=== PATIENT | female | born 1965 | race Caucasian/White ===

== ENCOUNTER 2020-06-16 11:26 | Outpatient (REF) | payer MEDICAID, SELFPAY ==
--- NOTE | 2020-06-16 | XR_ITS ---
EXAMINATION: XR SHOULDER, LEFT CLINICAL INFORMATION: Left shoulder pain COMPARISON: 06/13/2019 TECHNIQUE: AP external rotation, Grashey, scapular Y, and axillary views of the left shoulder. FINDINGS: There is no fracture or dislocation. The glenohumeral joint is appropriately aligned. The joint space is maintained. Mild spurring of the greater tuberosity of the humeral head. The acromioclavicular joint is intact with mild hypertrophic degenerative change. The visualized lung is clear. The visualized ribs are intact. IMPRESSION: Mild degenerative changes of the left shoulder.
== END 2020-06-16 11:27 | disposition home or self-care (01) ==
LOC: HO.XRAY 11:26
PROVIDERS: PCP Internal Medicine Geriatric Medicine; Visit Provider Internal Medicine Geriatric Medicine
DX: M25.512 Pain in left shoulder (principal)
CPT/HCPCS: 73030

== ENCOUNTER 2020-06-19 08:40 | Outpatient (REF) | payer MEDICAID, SELFPAY ==
[2020-06-19 09:28] LABS: MANUAL DIFF FLAG NO
[2020-06-19 09:42] LABS: Basophils Percent Auto 0.6 % (0-2); Eosinophils Absolute Auto 0.1 X10*3/uL (0.0-0.4); Eosinophils Percent Auto 2.4 % (0-4); Hematocrit 40.8 % (37-47); Hemoglobin 13.6 g/dl (12.0-16.0); Imm Gran Abs Auto 0.02 X10*3/uL (0.00-0.03); Imm Gran Pct Auto 0.4 % (0.0-0.4); Lymphocytes Percent Auto 41.1 % (20-40); Mean Corpuscular HGB Conc 33.3 g/dl (31.0-35.0); Mean Corpuscular Hemoglobin 28.8 pg (27.0-33.0); Mean Corpuscular Volume 86.4 fL (80-98); Mean Platelet Volume 9.6 fL (9.4-12.3); Monocytes Absolute Auto 0.3 X10*3/uL (0.1-1.2); Neutrophils Absolute Auto 2.5 X10*3/uL (2.0-8.3); Neutrophils Percent Auto 50.5 % (45-73); Platelet Count 254 X10*3/uL (160-400); Red Blood Count 4.72 X10*6/uL (4.20-5.50); Red Cell Distribution Width 12.9 % (11.0-16.0)
[2020-06-19 10:04] LABS: Estimated Average Glucose 103 mg/dL; Hemoglobin A1c % 5.2 %
[2020-06-19 10:16] LABS: Alanine Aminotransferase 17 U/L (0-31); Alkaline Phosphatase 106 U/L (39-117); Anion Gap 12 (12-20); Aspartate Amino Transferase 16 U/L (5-31); Bilirubin Total 0.7 mg/dL (0.0-1.0); Blood Urea Nitrogen 18 mg/dL (9-16); C Reactive Protein 0.96 mg/dL (< or = 0.50); Calcium 9.3 mg/dL (8.4-10.2); Carbon Dioxide 29 mmol/L (22-29); Chloride 105 mmol/L (96-108); Cholesterol 186 mg/dL; Estimated Glomerular Filt Rate > 60; Glucose Random 90 mg/dL (60-115); HDL Cholesterol 49 mg/dL; Iron 115 mcg/dL (30-160); LDL Cholesterol Calculated 122 mg/dl; Percent Iron Saturation 37 % (15-50); Potassium 4.8 mmol/l (3.3-5.1); Sodium 141 mmol/L (135-145); Total Iron Binding Capacity 307 mcg/dL (228-428); Total Protein 6.7 g/dL (6.5-8.0); Triglycerides 78 mg/dL; Unsaturated Iron Binding 192 ug/dL
[2020-06-19 10:38] LABS: Ferritin 128 ng/mL (10-250); TSH reflex Free T4 2.31 mIU/mL (0.32-4.0)
[2020-06-21 05:47] LABS: Folate 4.8 ng/mL (> or = 4.0); Vitamin B12 443 pg/mL (200-900)
[2020-06-21 12:42] LABS: Insulin Level Total 6.2 uIU/mL
[2020-06-22 05:57] LABS: Zinc 77 mcg/dL (60-130)
[2020-06-22 16:01] LABS: Calcium (PTHI) 9.6 mg/dL (8.6-10.4); PTHI 82 pg/mL (14-64)
[2020-06-23 18:07] LABS: Vitamin A 53 mcg/dL (38-98)
[2020-06-24 11:27] LABS: Vitamin B1 10 nmol/L (8-30)
== END 2020-06-19 08:41 | disposition home or self-care (01) ==
LOC: HO.LAB 08:40
PROVIDERS: PCP Internal Medicine Geriatric Medicine; Visit Provider Physician Assistant
DX: Z98.84 Bariatric surgery status (principal); Z13.220 Encounter for screening for lipoid disorders
CPT/HCPCS: 36415; 80053; 80061; 82306; 82607; 82728; 82746; 83036; 83525; 83540; 83970; 84425; 84443; 84590; 84630; 85025; 86140

== ENCOUNTER → 2020-06-21 11:11 | Outpatient (BNVA) | payer MEDICAID, SELFPAY | PROVIDERS: PCP Internal Medicine Geriatric Medicine; Visit Provider Physician Assistant | DX: E66.9 Obesity, unspecified (principal); Z68.35 Body mass index [BMI] 35.0-35.9, adult; Z98.84 Bariatric surgery status | CPT/HCPCS: 99214 ==

== ENCOUNTER → 2020-07-13 08:03 | Outpatient (BNVA) | payer MEDICAID, SELFPAY | PROVIDERS: PCP Internal Medicine Geriatric Medicine; Visit Provider Dietitian, Registered | DX: Z76.89 Persons encountering health services in other specified circumstances (principal) ==

== ENCOUNTER 2020-08-20 08:00 | Outpatient (RCR) | payer MEDICAID, SELFPAY | END 2020-09-01 08:31 | disposition other institution (70) | LOC: HO.PT 08:00 | PROVIDERS: PCP Internal Medicine Geriatric Medicine; Visit Provider Internal Medicine Geriatric Medicine | DX: M25.512 Pain in left shoulder (principal) | CPT/HCPCS: 97033; 97110; 97140; 97161 ==

== ENCOUNTER 2020-09-07 11:31 | Outpatient (REF) | payer MEDICAID, SELFPAY ==
--- NOTE | 2020-09-07 11:36 | MM_ITS ---
EXAMINATION: MM SCREENING DIGITAL BREAST TOMOSYNTHESIS, BILATERAL CLINICAL INFORMATION: Screening. Asymptomatic. Chronic history sebaceous cyst upper left breast. The lifetime risk of breast cancer based on the Tyrer-Cuzick Model is 12%. COMPARISON: Mammography: 04/25/2019, 04/14/2019, 04/10/2018, 03/28/2017, diagnostic left breast ultrasound t. 04/25/2019. TECHNIQUE: Digital breast tomosynthesis is performed in both the craniocaudal and mediolateral oblique views along with computer-aided detection (CAD). Synthesized 2D images are generated from the tomosynthesis. FINDINGS: There are scattered areas of fibroglandular density (ACR BI-RADS breast composition Category b). Right breast parenchymal pattern is stable. There is stable scattered nodularity right breast central outer and inner breast similar to prior exams. There is no developing density or interval architectural abnormality. The left breast has a known sebaceous cyst posterior 11:00 position which is increased in size, currently measuring 1.6 x 1.4 x 1.4 cm. Prior exam dimensions are 1.0 x 0.8 x 0.5 cm on 04/25/2019. There are bilateral benign coarse round and dermal calcifications again seen posterior medial breasts. MM/MM tomosynthesis screening BI IMPRESSION: 1. Left: Known sebaceous cyst posterior 11:00 position increased in size. 2. Right: No significant changes from prior studies. ASSESSMENT: BI-RADS 2: Benign RECOMMENDATION: 1. Consider surgical consult for management of chronic increasing sebaceous cyst left breast. 2. Otherwise, routine annual mammography screening. This patient's information was entered into a reminder system with a target due date for their next mammogram.
== END 2020-09-07 11:32 | disposition home or self-care (01) ==
LOC: HO.MAMMO 11:31
PROVIDERS: Visit Provider Internal Medicine Geriatric Medicine
DX: Z12.31 Encounter for screening mammogram for malignant neoplasm of breast (principal)
CPT/HCPCS: 77063; 77067

== ENCOUNTER → 2020-09-21 | Outpatient (BNVA) | payer MEDICAID, SELFPAY | PROVIDERS: PCP Internal Medicine Geriatric Medicine; Visit Provider Surgery | DX: N60.09 Solitary cyst of unspecified breast (principal) | CPT/HCPCS: 99202 ==

== ENCOUNTER → 2020-09-27 08:09 | Outpatient (BNVA) | payer MEDICAID, SELFPAY | PROVIDERS: Visit Provider Physician Assistant ==

== ENCOUNTER 2020-09-30 07:41 | Outpatient (REF) | payer MEDICAID, SELFPAY ==
[2020-09-30 07:28] VITALS: BP 148/86; PULSE 77; RESP 19; O2SAT 100; BMI 80.6
--- NOTE | 2020-09-30 08:17 | MHC.SHP ---
Pre-Procedural Eval Section A The patient is an INPATIENT: No Changes since office visit: Yes Patient answered all questions; No Cold of Flu in the past 2 weeks, No New Medical Problems and No Changes in Medication The History & Physical has been completed within 30 days and I have reviewed it.: Yes Section B Chief Complaint: Benign breast cyst in female Allergies: Allergies Allergy/AdvReac Type Severity Reaction Status Date / Time No Known Allergies Allergy Unverified 06/21/20 13:55 [No Known Allergies*] Plan Diagnosis/Plan: Unchanged I have reviewed the history and physical and performed a pertinent physical examination on my patient. No changes have occurred unless specified.
--- NOTE | 2020-09-30 08:17 | PM.OP ---
Brief Operative Note Date of Service: 09/30/20 Pre-op diagnosis: Left breast skin cyst Post-op diagnosis: same Procedure: Excision of left breast skin cyst Implants: none Surgeon: Noé Hood MD Anesthesia: local Estimated blood loss (mL): 5 Pathology: other (Left breast skin cyst) Condition: stable Disposition: other (Home)
--- NOTE | 2020-09-30 08:20 | W.PM.OPN ---
Operative Note Operative Note Date of Service: 09/30/20 Narrative: Preoperative diagnosis: Left breast cyst Postoperative diagnosis: Same Procedure excision of left breast cyst Surgeon: Noé Hood MD Anesthesia: Local Indications for procedure: 54-year-old female with a previous history of infected cyst in the 9 o'clock position of the left breast. She presents now for excision of this epidermal inclusion cyst. Operative findings: 1.5 cm epidermal inclusion cyst 9 o'clock position of left breast Specimen: Left breast cyst Estimated blood loss: 5 mL Complications: None Procedure details: Patient was brought to the minor surgery suite placed in a supine position. The site of surgery was confirmed by the patient in the left breast at the 9 o'clock position. Informed consent was confirmed. Skin was then prepped with Betadine and draped in a sterile fashion. Local anesthesia consisting of 1% lidocaine with epinephrine was infiltrated in elliptical fashion around the lesion. An elliptical incision was then created with a scalpel carried down through subcutaneous tissue around the cyst wall. The cyst was excised and sent to pathology for further examination. Skin was then closed using interrupted 4 0 nylon sutures. Sterile dressings consisting of 2 x 2 gauze and Tegaderm were then applied. The patient tolerated the procedure well was discharged to home in stable condition.
== END 2020-09-30 07:42 | disposition home or self-care (01) ==
LOC: HO.MS 07:41
PROVIDERS: PCP Internal Medicine Geriatric Medicine; Visit Provider Surgery
PROC: (CPT 11402; principal; 2020-09-30 08:00)
DX: N60.82 Other benign mammary dysplasias of left breast (principal)
CPT/HCPCS: 11402; 88304

== ENCOUNTER → 2020-10-05 07:41 | Outpatient (BNVA) | payer MEDICAID, SELFPAY | PROVIDERS: Visit Provider Physician Assistant ==

== ENCOUNTER → 2020-10-08 09:36 | Outpatient (BNVA) | payer MEDICAID, SELFPAY | PROVIDERS: PCP Internal Medicine Geriatric Medicine; Visit Provider Surgery | DX: Z01.419 Encounter for gynecological examination (general) (routine) without abnormal findings (principal); E66.9 Obesity, unspecified; R23.2 Flushing; N60.09 Solitary cyst of unspecified breast | CPT/HCPCS: 99212 ==

== ENCOUNTER 2020-10-29 09:51 | Outpatient (REF) | payer MEDICAID, SELFPAY | END 2020-10-29 09:52 | disposition home or self-care (01) | LOC: HO.LNP 09:51 | PROVIDERS: PCP Internal Medicine Geriatric Medicine; Visit Provider Surgery | DX: L98.9 Disorder of the skin and subcutaneous tissue, unspecified (principal) | CPT/HCPCS: 11200 ==

== ENCOUNTER 2020-10-29 13:07 | Outpatient (REF) | payer MEDICAID, SELFPAY | END 2020-10-29 13:08 | disposition home or self-care (01) | LOC: HO.LAB 13:07 | PROVIDERS: Visit Provider Surgery | DX: L98.9 Disorder of the skin and subcutaneous tissue, unspecified (principal) | CPT/HCPCS: 88305 ==

== ENCOUNTER → 2020-11-09 08:17 | Outpatient (BNVA) | payer MEDICAID, SELFPAY | PROVIDERS: PCP Internal Medicine Geriatric Medicine; Visit Provider Dietitian, Registered ==

== ENCOUNTER 2020-12-07 14:08 | Outpatient (REF) | payer MEDICAID, SELFPAY ==
--- NOTE | ~2020-12-07 | XR_ITS ---
EXAMINATION: BILATERAL HIP X-RAY AND PELVIS CLINICAL INFORMATION: Pain COMPARISON: None TECHNIQUE: One view of the pelvis and 2 views of each hip FINDINGS: Bone alignment is normal. No fracture or dislocation is seen. There is mild arthritis at the hip joints with joint space narrowing and osteophyte formation. Bones of the pelvis are unremarkable. There are degenerative changes of the visualized lower lumbar spine. Soft tissues are unremarkable. XR/XR hip RT min 2V IMPRESSION: Mild bilateral hip arthritis.
--- NOTE | ~2020-12-07 | XR_ITS ---
EXAMINATION: BILATERAL HIP X-RAY AND PELVIS CLINICAL INFORMATION: Pain COMPARISON: None TECHNIQUE: One view of the pelvis and 2 views of each hip FINDINGS: Bone alignment is normal. No fracture or dislocation is seen. There is mild arthritis at the hip joints with joint space narrowing and osteophyte formation. Bones of the pelvis are unremarkable. There are degenerative changes of the visualized lower lumbar spine. Soft tissues are unremarkable. XR/XR hip LT min 2V IMPRESSION: Mild bilateral hip arthritis.
== END 2020-12-07 14:09 | disposition home or self-care (01) ==
LOC: HO.XRAY 14:08
PROVIDERS: PCP Internal Medicine Geriatric Medicine; Visit Provider Internal Medicine Geriatric Medicine
DX: M25.551 Pain in right hip (principal); M25.552 Pain in left hip; G89.29 Other chronic pain
CPT/HCPCS: 73502

== ENCOUNTER → 2021-01-27 08:52 | Outpatient (BNVA) | payer MEDICAID, SELFPAY | PROVIDERS: Visit Provider Orthopaedic Surgery | DX: M70.71 Other bursitis of hip, right hip (principal); M70.72 Other bursitis of hip, left hip | CPT/HCPCS: 99202 ==

== ENCOUNTER 2021-09-19 08:01 | Outpatient (REF) | payer MEDICAID, SELFPAY ==
--- NOTE | ~2021-09-19 | MM_ITS ---
EXAMINATION: MM SCREENING DIGITAL BREAST TOMOSYNTHESIS, BILATERAL CLINICAL INFORMATION: Screening. Asymptomatic. The lifetime risk of breast cancer based on the Tyrer-Cuzick Model is 10%. COMPARISON: Mammography: 09/07/2020, 04/25/2019, 04/14/2019, 04/10/2018, ultrasound left breast 04/25/2019. TECHNIQUE: Digital breast tomosynthesis is performed in both the craniocaudal and mediolateral oblique views along with computer-aided detection (CAD). Synthesized 2D images are generated from the tomosynthesis. FINDINGS: There are scattered areas of fibroglandular density (ACR BI-RADS breast composition Category b). The sebaceous cyst 11:00 left breast has resolved. Parenchymal pattern is otherwise similar to prior studies. Some minor nodularity medial and central outer right breast are stable. There is no developing density or interval mass or architectural abnormality. Multiple round and predominantly dermal calcifications are again seen similar in number and distribution. The skin contours are smooth. No significant changes. MM/MM tomosynthesis screening BI IMPRESSION: No mammographic evidence of malignancy. ASSESSMENT: BI-RADS 2: Benign RECOMMENDATION: Routine annual mammography screening. This patient's information was entered into a reminder system with a target due date for their next mammogram.
== END 2021-09-19 08:02 | disposition home or self-care (01) ==
LOC: HO.MAMMO 08:01
PROVIDERS: Visit Provider Internal Medicine Geriatric Medicine
DX: Z12.31 Encounter for screening mammogram for malignant neoplasm of breast (principal)
CPT/HCPCS: 77063; 77067

== ENCOUNTER → 2021-10-13 08:06 | Outpatient (BNVA) | payer MEDICAID, SELFPAY | PROVIDERS: PCP Internal Medicine Geriatric Medicine; Visit Provider Advanced Practice Midwife ==

== ENCOUNTER 2021-11-07 09:43 | Outpatient (REF) | payer MEDICAID, SELFPAY ==
[2021-11-07 10:24] LABS: Hemoglobin 13.8 g/dl (12.0-16.0); Mean Corpuscular HGB Conc 33.7 g/dl (31.0-35.0); Mean Corpuscular Hemoglobin 29.2 pg (27.0-33.0); Mean Corpuscular Volume 86.9 fL (80.0-98.0); Mean Platelet Volume 9.8 fL (9.4-12.3); Platelet Count 219 X10*3/uL (160-400); Red Blood Count 4.72 X10*6/uL (4.20-5.50); Red Cell Distribution Width 13.7 % (11.0-16.0); White Blood Count 5.4 X10*3/uL (4.8-10.8)
[2021-11-07 11:00] LABS: Alanine Aminotransferase 11 U/L (0-31); Alkaline Phosphatase 91 U/L (39-117); Aspartate Amino Transferase 18 U/L (5-31); Bilirubin Direct 0.3 mg/dL (0.0-0.5); Bilirubin Total 0.7 mg/dL (0.0-1.0); Cholesterol 214 mg/dL; HDL Cholesterol 48 mg/dL; LDL Cholesterol Calculated 146 mg/dl; Total Protein 6.8 g/dL (6.5-8.0); Triglycerides 102 mg/dL
[2021-11-07 11:14] LABS: TSH reflex Free T4 1.86 uIU/mL (0.32-4.0)
== END 2021-11-07 09:44 | disposition home or self-care (01) ==
LOC: HO.LAB 09:43
PROVIDERS: PCP Internal Medicine Geriatric Medicine; Visit Provider Internal Medicine Geriatric Medicine
DX: R03.0 Elevated blood-pressure reading, without diagnosis of hypertension (principal); Z13.1 Encounter for screening for diabetes mellitus; Z13.220 Encounter for screening for lipoid disorders; Z98.84 Bariatric surgery status
CPT/HCPCS: 36415; 80061; 80076; 84443; 85027

== ENCOUNTER → 2022-09-07 08:11 | Outpatient (BNVA) | payer MEDICAID, SELFPAY | PROVIDERS: PCP Internal Medicine Geriatric Medicine; Visit Provider Physician Assistant Surgical | DX: E66.9 Obesity, unspecified (principal); Z68.31 Body mass index [BMI] 31.0-31.9, adult; Z98.84 Bariatric surgery status | CPT/HCPCS: 99212 ==

== ENCOUNTER 2022-09-21 06:57 | Outpatient (REF) | payer MEDICAID, SELFPAY ==
--- NOTE | ~2022-09-21 | MM_ITS ---
EXAMINATION: MM SCREENING DIGITAL BREAST TOMOSYNTHESIS, BILATERAL CLINICAL INFORMATION: Screening. Asymptomatic. The lifetime risk of breast cancer based on the Tyrer-Cuzick Model is 9.0%. COMPARISON: Mammography: 03/19/2022 and studies dating back to 03/28/2017. TECHNIQUE: Digital breast tomosynthesis was performed in both the craniocaudal and mediolateral oblique views along with computer-aided detection (CAD). Synthesized 2D images were generated from the tomosynthesis. FINDINGS: There are scattered areas of fibroglandular density (ACR BI-RADS breast composition Category b). There is a stable appearance of the right breast. Within the deep central aspect of the left breast, seen only on the craniocaudal view, there is a partially circumscribed and somewhat lobular 7 x 4 mm density approximately 8 cm from the nipple for which further evaluation with spot compression film and ultrasound is recommended. On tomosynthesis it appears that the lesion is inferior. MM/MM tomosynthesis screening BI IMPRESSION: Left breast density seen on deep craniocaudal view for further evaluation with spot compression view and ultrasound. ASSESSMENT: BI-RADS 0: Incomplete - Need Additional Imaging Evaluation RECOMMENDATION: 1. Additional views of the left breast. 2. Targeted ultrasound if warranted after review of the additional views. 3. Radiology department staff will contact the patient for additional imaging. This patient's information was entered into a reminder system with a target due date for their next mammogram.
[2022-09-21 07:14] LABS: MANUAL DIFF FLAG NO
[2022-09-21 07:56] LABS: Basophils Percent Auto 0.6 % (0-2); Eosinophils Absolute Auto 0.1 X10*3/uL (0.0-0.4); Hematocrit 45.1 % (37.0-47.0); Hemoglobin 15.3 g/dl (12.0-16.0); Imm Gran Abs Auto 0.02 X10*3/uL (0.00-0.03); Imm Gran Pct Auto 0.3 % (0.0-0.4); Lymphocytes Percent Auto 29.1 % (20-40); Mean Corpuscular HGB Conc 33.9 g/dl (31.0-35.0); Mean Corpuscular Hemoglobin 28.5 pg (27.0-33.0); Mean Corpuscular Volume 84.1 fL (80.0-98.0); Mean Platelet Volume 9.6 fL (9.4-12.3); Monocytes Absolute Auto 0.4 X10*3/uL (0.1-1.2); Monocytes Percent Auto 5.2 % (2-11); Neutrophils Absolute Auto 4.3 x10*3/uL (2.0-8.3); Neutrophils Percent Auto 63.8 % (45-73); Platelet Count 258 X10*3/uL (160-400); Red Blood Count 5.36 X10*6/uL (4.20-5.50); Red Cell Distribution Width 13.2 % (11.0-16.0); White Blood Count 6.7 X10*3/uL (4.8-10.8)
[2022-09-21 08:19] LABS: Estimated Average Glucose 94 mg/dL; Hemoglobin A1c % 4.9 %
[2022-09-21 08:21] LABS: Alanine Aminotransferase 13 U/L (0-31); Albumin Level 4.2 g/dL (3.5-5.0); Alkaline Phosphatase 115 U/L (39-117); Anion Gap 14 (12-20); Aspartate Amino Transferase 16 U/L (5-31); Bilirubin Total 0.7 mg/dL (0.0-1.0); Blood Urea Nitrogen 17 mg/dL (9-16); C Reactive Protein 0.45 mg/dL (< or = 0.50); Calcium 9.9 mg/dL (8.4-10.2); Carbon Dioxide 24 mmol/L (22-29); Chloride 104 mmol/L (96-108); Cholesterol 206 mg/dL; Estimated Glomerular Filt Rate > 60; Glucose Random 81 mg/dL (60-115); HDL Cholesterol 42 mg/dL; Iron 94 mcg/dL (30-160); LDL Cholesterol Calculated 144 mg/dl; Percent Iron Saturation 30 % (15-50); Potassium 4.4 mmol/L (3.3-5.1); Sodium 138 mmol/L (135-145); Total Iron Binding Capacity 313 mcg/dL (228-428); Total Protein 7.2 g/dL (6.5-8.0); Triglycerides 101 mg/dL; Unsaturated Iron Binding 219 ug/dL
[2022-09-21 08:39] LABS: Ferritin 118 ng/mL (10-250); Insulin 10 uU/mL (2-29); TSH reflex Free T4 2.28 uIU/mL (0.32-4.0); Vitamin D 25-OH Total 19.1 ng/mL (>30)
[2022-09-21 08:48] LABS: Folate 4.7 ng/mL (> or = 4.0); Vitamin B12 748 pg/mL (200-900)
[2022-09-22 13:38] LABS: Calcium (PTHI) 9.9 mg/dL (8.6-10.4); PTHI 113 pg/mL (16-77)
[2022-09-24 23:06] LABS: Vitamin A 43 mcg/dL (38-98)
[2022-09-25 15:38] LABS: Zinc 64 mcg/dL (60-130)
[2022-09-26 15:18] LABS: Vitamin B1 7 nmol/L (8-30)
== END 2022-09-21 06:58 | disposition home or self-care (01) ==
LOC: HO.MAMMO 06:57
PROVIDERS: Absent Provider Physician Assistant Surgical; PCP Internal Medicine Geriatric Medicine; Visit Provider Internal Medicine Geriatric Medicine
DX: Z12.31 Encounter for screening mammogram for malignant neoplasm of breast (principal); Z98.84 Bariatric surgery status
CPT/HCPCS: 36415; 77063; 77067; 80053; 80061; 82306; 82607; 82728; 82746; 83036; 83525; 83540; 83970; 84425; 84443; 84590; 84630; 85025; 86140

== ENCOUNTER → 2022-10-02 11:14 | Outpatient (BNVA) | payer MEDICAID, SELFPAY | PROVIDERS: PCP Internal Medicine Geriatric Medicine; Visit Provider Physician Assistant Surgical | DX: Z13.89 Encounter for screening for other disorder (principal) ==

== ENCOUNTER 2022-10-13 10:48 | Outpatient (REF) | payer MEDICAID, SELFPAY ==
--- NOTE | ~2022-10-13 | MM_ITS ---
EXAMINATION: MM DIAGNOSTIC DIGITAL BREAST TOMOSYNTHESIS, LEFT CLINICAL INFORMATION: Density deep left breast craniocaudal view. COMPARISON: Mammography: September 10, 20182022 and studies dating back to May 12, 2015 TECHNIQUE: Digital breast tomosynthesis is performed. 2D images are generated from the tomosynthesis. The following views are obtained: Spot compression craniocaudal view left breast. FINDINGS: There are scattered areas of fibroglandular density (ACR BI-RADS breast composition Category b). Additional views show no significant mass, architectural abnormality, or abnormal calcifications. Appearance is similar to previous study of March 28, 2017. Results are provided to the patient at time of visit by the technologist. MM/MM tomosynthesis added views L IMPRESSION: No mammographic evidence of malignancy. ASSESSMENT: BI-RADS 1: Negative RECOMMENDATION: Routine annual mammography screening. This patient's information was entered into a reminder system with a target due date for their next mammogram.
== END 2022-10-13 10:49 | disposition home or self-care (01) ==
LOC: HO.MAMMO 10:48
PROVIDERS: PCP Internal Medicine Geriatric Medicine; Visit Provider Internal Medicine Geriatric Medicine
DX: R92.2 Inconclusive mammogram (principal)
CPT/HCPCS: 77061; 77065

== ENCOUNTER 2022-10-19 09:06 | Outpatient (REF) | payer MEDICAID, SELFPAY ==
[2022-10-20 13:13] LABS: BV Int Neg Control Negative (Negative); BV Int Pos Control Positive (Positive)
== END 2022-10-19 09:07 | disposition home or self-care (01) ==
LOC: HO.LAB 09:06
PROVIDERS: PCP Internal Medicine Geriatric Medicine; Visit Provider Advanced Practice Midwife
DX: N89.8 Other specified noninflammatory disorders of vagina (principal)
CPT/HCPCS: 87480; 87510; 87660

== ENCOUNTER 2023-03-13 15:47 | Outpatient (AMB) | payer MEDICAID, SELFPAY ==
[2023-03-13 15:57] VITALS: BP 120/73; PULSE 71; TEMP 36.5; O2SAT 98; BMI 31.7
--- NOTE | 2023-03-13 15:57 | A.OFFVIS_ITS ---
Intake VS Expanded 03/13/23 15:57 Height 5 ft 2 in Weight 173 lb 3.2 oz BMI 31.7 BP 120/73 Blood Pressure Location Lt brachial Blood Pressure Position Sitting Pulse 71 Pulse Source Pulse Oximeter Temp 97.7 F Temperature Source Temporal Artery Scan Pulse Oximetry 98 Oxygen Delivery Method Room Air Body Fat 70.2 Body Fat Percentage 40.5 Free Fat Mass 103.0 Muscle Mass 97.6 Visceral Mass 10.0 Water Mass 73.2 BMR 1,422 Intake Visit Reasons: PO 05/21/2018 Allergies No Known Allergies [No Known Allergies*] Allergy (Verified 03/13/23 15:59) Medication List - Last Reconciled 03/13/23 by SOBIA Real cholecalciferol (vitamin D3) 125 mcg PO DAILY clotrimazole 1% 1 appl topical BID thiamine HCl (vitamin B1) 100 mg PO DAILY HPI HPI Comments History of Present Illness Details This?is a?57?yo female who is s/p LSG 05/21/2018. Presents for 4 year 10 month post op visit. Weight at last visit on 09/07/2022 was 169.6 pounds with a BMI of 31, weight today is 173.2 pounds, representing a 3.6 pound weight gain with a BMI today of 31.7.? No complaints of nausea, emesis, abdominal pain or reflux, or constipation. 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 Not following meal plan closely. Having some stress with her two sons. Present meal plan includes: breakfast- hot cereal, less than 8oz, plus coffee lunch- protein shake ([employer]) dinner- sometimes a small portion of rice and beans, a few oz protein like chicken, or more hot cereal does not like fruits- likes cauliflower rice, salad, broccoli All meals last 20 - 30 minutes and does not drink and eat at the same time. Exercise routine includes: has not been going to the gym- but wants to get back to going does walk about 1 mile 3x/week with dogs [facility] Medical History Adult BMI 35.0-35.9 kg/sq m Arthritis of left upper arm Bilateral hip bursitis delivery delivered Facial palsy Hypertension Intestinal malabsorption following gastrectomy Morbid obesity Obesity (BMI 30-39.9) Varicose veins during , antepartum Surgical History History of colonoscopy Hx of section S/P laparoscopic sleeve gastrectomy [place] teeth extracted Family History Father Hypertension Mother Colon cancer Brother No problems noted. Sister No problems noted. Sister No problems noted. Son No problems noted. Son No problems noted. Maternal Aunt No problems noted. Maternal Aunt No problems noted. 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 Gender identity: Female Physical Exam Vital Signs: Last Vital Signs Temp 97.7 F 03/13/23 15:57 Pulse 71 03/13/23 15:57 BP 120/73 03/13/23 15:57 Pulse Ox 98 03/13/23 15:57 Oxygen Delivery Method Room Air 03/13/23 15:57 BMI result Body Mass Index 31.7 Const General: cooperative, comfortable and no acute distress Orientation/consciousness: patient oriented x3 GI Other: soft, nondistended, incisions well healed, large pannus, tenderness around umbilicus, no obvious bulge, difficult to appreciate borders of a hernia due to body habitus Neuro General: patient oriented x3 Assessment & Plan Assessment & Plan (1) Obesity (BMI 30-39.9): Code(s): E66.9 - Obesity, unspecified (2) S/P laparoscopic sleeve gastrectomy: Comment: DOS 05/21/18, Dr. Quintanilla Code(s): Z98.84 - Bariatric surgery status Plan Will order CT scan to determine presence of umbilical/abdominal wall hernia as it is difficult to palpate any borders of a fascial defect due to pt's body habitus. Discussed that to optimize successful surgery for hernia repair it would be beneficial to continue with weight loss. Pt's protein intake remains low and she has a lot of food preferences that limit her protein options. She will try a protein bar for breakfast if she does not want eggs; can try string cheese for a snack. RTC once CT scan completed. Patient is obese and is not considered stable at this time. I spent a total of 30 minutes reviewing/updating records, examining the patient and counseling the patient on weight management as detailed above. Orders: Orders CT abdomen pelvis w IV con Today K43.9 - Ventral hernia without obstruction or gangrene Blood Urea Nitrogen Today Z01.812 - Encounter for preprocedural laboratory examination Creatinine Today Z01.812 - Encounter for preprocedural laboratory examination EGFR,IHC Today Z01.812 - Encounter for preprocedural laboratory examination Coding Level of Care Code Est Pt Level 4 (11462) Diagnoses Obesity (BMI 30-39.9) E66.9 S/P laparoscopic sleeve gastrectomy Z98.84
== END 2023-03-13 16:36 | disposition home or self-care (01) ==
PROVIDERS: PCP Internal Medicine Geriatric Medicine; Visit Provider Physician Assistant Surgical
DX: E66.9 Obesity, unspecified (principal); Z98.84 Bariatric surgery status
CPT/HCPCS: 99214

== ENCOUNTER → 2023-03-13 15:47 | Outpatient (BNVA) | payer MEDICAID, SELFPAY | PROVIDERS: PCP Internal Medicine Geriatric Medicine; Visit Provider Physician Assistant Surgical | DX: E66.9 Obesity, unspecified (principal); Z98.84 Bariatric surgery status; Z68.31 Body mass index [BMI] 31.0-31.9, adult | CPT/HCPCS: 99214 ==

== ENCOUNTER 2023-04-16 09:48 | Day surgery (SDC) | payer OTHER, SELFPAY ==
--- NOTE | 2023-04-13 10:42 | P.CONAN_ITS ---
Documented by User: Kailey Eli NP 04/13/23 10:42 HPI - Anesthesia Eval Consult details Narrative: 57yo F for Colonoscopy PMFSH Active Problems Active Problems: All Active Problems (Updated 10/13/21 @ 08:15 by Juan Vance) Encounter for annual routine gynecological examination (Acute) Bilateral hip bursitis (Acute) Skin lesions (Acute) Intestinal malabsorption following gastrectomy (Acute) Benign breast cyst in female (Acute) Adult BMI 35.0-35.9 kg/sq m (Acute) Obesity (BMI 30-39.9) (Acute) S/P laparoscopic sleeve gastrectomy (Acute) Morbid obesity (Acute) Past Medical History Medical History Adult BMI 35.0-35.9 kg/sq m Arthritis of left upper arm Bilateral hip bursitis delivery delivered Facial palsy Hypertension Intestinal malabsorption following gastrectomy Morbid obesity Obesity (BMI 30-39.9) Varicose veins during , antepartum Family History Family History Father Hypertension Mother Colon cancer Brother No problems noted. Sister No problems noted. Sister No problems noted. Son No problems noted. Son No problems noted. Maternal Aunt No problems noted. Maternal Aunt No problems noted. 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 Gender identity: Female Meds Allergies Allergy/AdvReac Type Severity Reaction Status Date / Time No Known Allergies Allergy Verified 04/16/23 10:34 [No Known Allergies*] Exam Exam Date and Time: April 13, 2023 1042 Assessment and Plan Assessment Anesthesia Assessment: Chart Reviewed Documented by User: Karely Dennis MD 04/16/23 11:06 [facility] Past Medical History Medical History Adult BMI 35.0-35.9 kg/sq m Arthritis of left upper arm Bilateral hip bursitis delivery delivered Facial palsy Hypertension Intestinal malabsorption following gastrectomy Morbid obesity Obesity (BMI 30-39.9) Varicose veins during , antepartum Family History Family History Father Hypertension Mother Colon cancer Brother No problems noted. Sister No problems noted. Sister No problems noted. Son No problems noted. Son No problems noted. Maternal Aunt No problems noted. Maternal Aunt No problems noted. 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 Gender identity: Female Meds Allergies Allergy/AdvReac Type Severity Reaction Status Date / Time No Known Allergies Allergy Verified 04/16/23 10:34 [No Known Allergies*] Exam Airway Mallampati Class: III TM Dist: >3cm Neck ROM: Full Loose/Missing/Broken Teeth: No Heart: RRR Lungs: CTA Assessment and Plan Assessment Anesthesia Assessment: Anesthesia Plan Discussed Final Anesthetic Review History of Problems with Anesthesia: No NPO: Yes ASA Class: II Final Preanesthetic Review: Meds/Allgs Chart Reviewed, Consent Obtained/Reviewed and Anes Risks/Benef Reviewed Patient Risk: Low Procedure Risk: Low Anesthetic Plan Anesthetic Plan: MAC: Disposition: Standard PACU
[2023-04-16 08:36] VITALS: BMI 32.2
[2023-04-16] MEDS: Lactated Ringers 1,000 ML 100 ML IVCONT (10:25)
[2023-04-16 10:33] VITALS: BP 121/75; PULSE 70; RESP 18; TEMP 36.4; O2SAT 100
[2023-04-16 13:11] VITALS: BP 90/57; PULSE 74; RESP 16; TEMP 36.5; O2SAT 98
--- NOTE | 2023-04-16 13:17 | PM.OP ---
Brief Operative Note Date of Service: 04/16/23 Pre-op diagnosis: Screening Post-op diagnosis: other (Diverticulosis, Limited prep) Procedure: Colonoscopy to the cecum Surgeon: Manfred Smith Anesthesia: MAC Was an Director Of Convention Services used for this Procedure?: No Estimated blood loss (mL): 0 Pathology: none sent Condition: stable Disposition: PACU
[2023-04-16 13:26] VITALS: BP 109/65; PULSE 69; RESP 16; O2SAT 98
[2023-04-16 13:41] VITALS: BP 114/75; PULSE 73; RESP 16; TEMP 36.6; O2SAT 97
--- NOTE | 2023-04-16 13:46 | OP_ITS ---
DATE OF SERVICE: 04/16/2023 SURGEON: Manfred Smith MD INDICATIONS: The patient presents for evaluation of personal history of colon polyps and colorectal cancer screening. Full consent has been obtained from her for this, including risks of bleeding and perforation. PREOPERATIVE DIAGNOSIS: Personal history of colon polyp and colorectal cancer screening. POSTOPERATIVE DIAGNOSIS: PROCEDURE PERFORMED: Colonoscopy to the cecum. ESTIMATED BLOOD LOSS: COMPLICATIONS: ANESTHESIA: Monitored anesthesia care. ASSISTANTS: SPECIMENS: POSTOPERATIVE DIAGNOSES: Personal history of colon polyp and colorectal cancer screening, limited exam, diverticulosis and internal hemorrhoids. DESCRIPTION OF PROCEDURE: The patient was placed in the left lateral decubitus position. The digital rectal exam revealed no abnormalities. The Olympus video pediatric colonoscope was entered into the rectum and advanced easily to the cecum. The cecum was unable to be adequately visualized due to some retained food debris and stool. Attempts at irrigation were not successful. I did visualize the ileocecal valve, which appeared normal for the most part. The scope was then slowly withdrawn assessing all mucosal surfaces carefully. Preparation throughout the colon was limited due to some retained solid stool in various parts, although other parts of the mucosa were quite clean and well visualized without any abnormality. I did not visualize any polyps, colitis, nor angiodysplasias, although again visualization was quite limited due to the limited prep. There was a mild amount of sigmoid diverticulosis. In the rectum, scope was retroflexed visualizing internal hemorrhoids but no other pathology. The rectal mucosa appeared normal. The scope was straightened and withdrawn from the patient. She tolerated the procedure well and was returned to the recovery area in stable condition. IMPRESSION: 1. Negative colonoscopy but limited by a poor prep. 2. Diverticulosis. 3. Internal hemorrhoids. PLAN: On discussing things with her , she apparently did not do the entire prep as she had trouble finishing it in relation to her previous sleeve gastrectomy. Her colonoscopy in 2018, which was prior to that surgery, was complete and negative, with the report describing an excellent preparation. She also had a colonoscopy in 2015 in [place] with a somewhat limited prep as well. PLAN: At this point, she is not having any particular GI symptoms. Therefore, given her benign clinical history and her negative exam in 2018 with excellent prep, I am inclined to wait another 2-3 years before having her undergo another colonoscopy with a better prep. She will see me otherwise on a p.r.n. basis. This has all been discussed with the patient's in detail. MD SYL Cerda/EVERT / [id number] MTDD
== END 2023-04-16 14:00 | disposition home or self-care (01) ==
PROVIDERS: PCP Internal Medicine Geriatric Medicine; Visit Provider Internal Medicine
PROC: 0DJD8ZZ Inspection of Lower Intestinal Tract, Via Natural or Artificial Opening Endoscopic (ICD-10-PCS; CPT 45378; principal; 2023-04-16 11:40)
DX: Z12.11 Encounter for screening for malignant neoplasm of colon (principal); Z86.010 Personal history of colon polyps; Z80.0 Family history of malignant neoplasm of digestive organs; K57.30 Diverticulosis of large intestine without perforation or abscess without bleeding; K64.8 Other hemorrhoids; I10 Essential (primary) hypertension; Z79.899 Other long term (current) drug therapy; Z98.84 Bariatric surgery status
CPT/HCPCS: 45378

== ENCOUNTER 2023-04-17 08:22 | Outpatient (REF) | payer OTHER, SELFPAY ==
--- NOTE | ~2023-04-17 | CT_ITS ---
EXAMINATION: CT ABDOMEN AND PELVIS WITH CONTRAST CLINICAL INFORMATION: Ventral hernia without obstruction COMPARISON: None available. TECHNIQUE: Multidetector volumetric images were obtained from the superior aspect of the liver through the pubic symphysis following administration 85 mL of Omnipaque 350 intravenous contrast. Sagittal and coronal reformatted images were obtained on the technologist's workstation. Oral contrast: Yes This CT examination was performed using dose optimization techniques as appropriate, variously including the following: *Automated exposure control *Adjustment of mA and/or kV according to patient size (this includes techniques or standardized protocols for targeted exams where dose is matched to indication/reason for exam; i.e. extremities or head) *Use of iterative reconstruction technique DLP: 646 mGy-cm FINDINGS: LUNG BASES: The visualized lung bases are unremarkable. LIVER, GALLBLADDER, AND BILIARY TREE: The liver is normal in size, shape, and attenuation. No focal hepatic lesion or biliary ductal dilatation is present. The gallbladder is unremarkable with no evidence of radiopaque gallstones, gallbladder wall thickening, or obvious pericholecystic inflammatory changes. PANCREAS: Unremarkable. SPLEEN: Unremarkable. ADRENAL GLANDS: Unremarkable. KIDNEYS AND URETERS: The kidneys are normal in size, shape, and attenuation. No hydronephrosis. 4 mm stone in the lower pole the left kidney. 2 mm stone in the lower pole of the right kidney. No perinephric stranding. BLADDER: Unremarkable. GASTROINTESTINAL TRACT: Asymmetric wall thickening of the right proximal colon questionable for a mass. This area measures approximately 1.8 x 2.2 cm for example coronal reconstructed image 36 and sagittal reconstructed image 90. Correlation with colonoscopy recommended. Small and large bowel is otherwise normal. The appendix is normal. There are postsurgical changes from gastric procedure. ABDOMINAL WALL: Diastasis of the rectus muscles and large umbilical hernia containing fat. This measures 5 x 6 x 9 cm in dimension. LYMPH NODES: Normal. VASCULAR: Unremarkable. PELVIC VISCERA: Unremarkable. OSSEOUS STRUCTURES: Degenerative changes of the spine. CT/CT abdomen pelvis w IV con IMPRESSION: Diastasis of the rectus muscles and large umbilical hernia containing fat. Question 1.8 x 2.2 cm mass in the proximal right colon. Correlation with colonoscopy recommended. Small bilateral renal stones. Postsurgical changes from gastric sleeve. Findings will be communicated by the [place] work flow coal bagger. Fleischner guidelines were followed.
[2023-04-17] MEDS: Barium Sulfate Oral (Vanilla) 450 ML ORAL.SUSP 900 ML PO (10:54)
[2023-04-17] MEDS: iohexoL 350 MG/ML 100 ML INFUS..BTL 85 ML IV (10:55)
== END 2023-04-17 08:23 | disposition home or self-care (01) ==
LOC: HO.CT 08:22
PROVIDERS: PCP Internal Medicine Geriatric Medicine; Visit Provider Physician Assistant Surgical
DX: K43.9 Ventral hernia without obstruction or gangrene (principal)
CPT/HCPCS: 74177; Q9967

== ENCOUNTER 2023-05-10 10:52 | Outpatient (AMB) | payer OTHER, MEDICAID, SELFPAY ==
--- NOTE | 2023-05-10 11:04 | MHC.OFFVISWM ---
Intake VS Expanded 05/10/23 11:11 Height 5 ft 2 in Weight 180 lb 12.8 oz BMI 33.1 BP 123/75 Blood Pressure Location Rt brachial Blood Pressure Position Sitting Pulse 70 Pulse Source Pulse Oximeter Temp 96.4 F L Temperature Source Tympanic Pulse Oximetry 97 Oxygen Delivery Method Room Air Body Fat 67.4 Body Fat Percentage 37.3 Free Fat Mass 113.4 Muscle Mass 107.6 Visceral Mass 10.0 Water Mass 80.4 BMR 1,542 Intake Visit Reasons: (OV) PO 05/21/2018 Allergies No Known Allergies [No Known Allergies*] Allergy (Verified 05/10/23 11:10) Medication List - Last Reconciled 05/10/23 by SOBIA Real cholecalciferol (vitamin D3) 125 mcg PO DAILY clotrimazole 1% 1 appl topical BID thiamine HCl (vitamin B1) 100 mg PO DAILY HPI HPI Comments History of Present Illness Details This?is a?57?yo female who is s/p LSG 05/21/2018. Presents for 5 year post op visit. Weight at last visit on 03/13/2023 was 173.2 pounds with a BMI of 31.7, weight today is 180.8 pounds, representing a 7.6 pound weight gain with a BMI today of 33.1.? Pt had CT scan to investigate hernia- results below. 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 Present meal plan includes: breakfast- hot cereal, less than 8oz, plus coffee, or bar, or eggs and santillan/ham lunch- protein shake ([employer]) dinner- sometimes a small portion of rice and beans, a few oz protein like chicken, or more hot cereal snack- string cheese does not like fruits- likes cauliflower rice, salad, broccoli All meals last 20 - 30 minutes and does not drink and eat at the same time. Exercise routine includes: has not been going to the gym does walk about 1 mile 3x/week with dogs Did the patient ever have any of these conditions and are they resolved or still being treated? GERD: resolved MARIE:? resolved DM:? never HTN:? resolved Hyperlipidemia:?never? Post op complications:? none PFSH Medical History Adult BMI 35.0-35.9 kg/sq m Arthritis of left upper arm Bilateral hip bursitis delivery delivered Facial palsy Hypertension Intestinal malabsorption following gastrectomy Morbid obesity Obesity (BMI 30-39.9) Varicose veins during , antepartum Surgical History Hx of section History of colonoscopy [place] teeth extracted S/P laparoscopic sleeve gastrectomy Family History Father Hypertension Mother Colon cancer Brother No problems noted. Sister No problems noted. Sister No problems noted. Son No problems noted. Son No problems noted. Maternal Aunt No problems noted. Maternal Aunt No problems noted. 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 TECHNIQUE: Multidetector volumetric images were obtained from the superior aspect of the liver through the pubic symphysis following administration 85 mL of Omnipaque 350 intravenous contrast. Sagittal and coronal reformatted images were obtained on the technologist's workstation. Oral contrast: Yes This CT examination was performed using dose optimization techniques as appropriate, variously including the following: *Automated exposure control *Adjustment of mA and/or kV according to patient size (this includes techniques or standardized protocols for targeted exams where dose is matched to indication/reason for exam; i.e. extremities or head) *Use of iterative reconstruction technique DLP: 646 mGy-cm FINDINGS: LUNG BASES: The visualized lung bases are unremarkable. LIVER, GALLBLADDER, AND BILIARY TREE: The liver is normal in size, shape, and attenuation. No focal hepatic lesion or biliary ductal dilatation is present. The gallbladder is unremarkable with no evidence of radiopaque gallstones, gallbladder wall thickening, or obvious pericholecystic inflammatory changes. PANCREAS: Unremarkable. SPLEEN: Unremarkable. ADRENAL GLANDS: Unremarkable. KIDNEYS AND URETERS: The kidneys are normal in size, shape, and attenuation. No hydronephrosis. 4 mm stone in the lower pole the left kidney. 2 mm stone in the lower pole of the right kidney. No perinephric stranding. BLADDER: Unremarkable. GASTROINTESTINAL TRACT: Asymmetric wall thickening of the right proximal colon questionable for a mass. This area measures approximately 1.8 x 2.2 cm for example coronal reconstructed image 36 and sagittal reconstructed image 90. Correlation with colonoscopy recommended. Small and large bowel is otherwise normal. The appendix is normal. There are postsurgical changes from gastric procedure. ABDOMINAL WALL: Diastasis of the rectus muscles and large umbilical hernia containing fat. This measures 5 x 6 x 9 cm in dimension. LYMPH NODES: Normal. VASCULAR: Unremarkable. PELVIC VISCERA: Unremarkable. OSSEOUS STRUCTURES: Degenerative changes of the spine. CT/CT abdomen pelvis w IV con IMPRESSION: Diastasis of the rectus muscles and large umbilical hernia containing fat. Question 1.8 x 2.2 cm mass in the proximal right colon. Correlation with colonoscopy recommended. Small bilateral renal stones. Postsurgical changes from gastric sleeve. Findings will be communicated by the [place] work flow refrigerator glazier. Fleischner guidelines were followed. Assessment & Plan Assessment & Plan (1) Obesity (BMI 30-39.9): Code(s): E66.9 - Obesity, unspecified (2) S/P laparoscopic sleeve gastrectomy: Comment: DOS 05/21/18, Dr. Quintanilla Code(s): Z98.84 - Bariatric surgery status (3) Umbilical hernia: Code(s): K42.9 - Umbilical hernia without obstruction or gangrene Plan Will set up appt with Dr. Head to discuss possible umbilical hernia repair. We did again discuss that continued weight loss will help with the technical aspects of the operation as well as likely improve her healing and recovery. She wants to try to increase protein intake and improve nutritional status in the interim. Encouraged pt to increase exercise as well. Will also contact Dr. Smith regarding CT finding of questionable mass in ascending colon. Pt did have a colonoscopy last month but it appears that it was limited due to poor prep. Discussed with pt that based on this finding Dr. Smith may want to repeat colonoscopy if he was unable to properly visualize this area of the colon and would like to reeval. Patient is obese and is not considered stable at this time. I spent a total of 30 minutes reviewing/updating records, examining the patient and counseling the patient on weight management as detailed above. Coding Level of Care Code Est Pt Level 4 (63044) Diagnoses Obesity (BMI 30-39.9) E66.9 S/P laparoscopic sleeve gastrectomy Z98.84 Umbilical hernia K42.9
[2023-05-10 11:11] VITALS: BP 123/75; PULSE 70; TEMP 35.8; O2SAT 97; BMI 33.1
== END 2023-05-10 11:49 | disposition home or self-care (01) ==
PROVIDERS: PCP Internal Medicine Geriatric Medicine; Visit Provider Physician Assistant Surgical
DX: E66.9 Obesity, unspecified (principal); Z98.84 Bariatric surgery status; K42.9 Umbilical hernia without obstruction or gangrene
CPT/HCPCS: 99214

== ENCOUNTER → 2023-05-10 10:52 | Outpatient (BNVA) | payer OTHER, SELFPAY | PROVIDERS: PCP Internal Medicine Geriatric Medicine; Visit Provider Physician Assistant Surgical | DX: K42.9 Umbilical hernia without obstruction or gangrene (principal); E66.9 Obesity, unspecified; Z68.33 Body mass index [BMI] 33.0-33.9, adult; Z90.3 Acquired absence of stomach [part of] | CPT/HCPCS: 99212 ==

== ENCOUNTER → 2023-05-16 09:55 | Outpatient (BNVA) | payer OTHER, MEDICAID, SELFPAY | PROVIDERS: PCP Internal Medicine Geriatric Medicine; Visit Provider Dietitian, Registered | DX: E66.9 Obesity, unspecified (principal) | CPT/HCPCS: 97803 ==

== ENCOUNTER 2023-05-28 11:04 | Outpatient (AMB) | payer SELFPAY ==
--- NOTE | 2023-05-28 11:06 | MHC.OFFVISWM ---
Intake VS Expanded 05/28/23 11:14 Height 5 ft 2 in Weight 185 lb 3.2 oz BMI 33.9 BP 144/69 H Blood Pressure Location Rt brachial Blood Pressure Position Sitting Pulse 71 Pulse Source Pulse Oximeter Temp 97.1 F Temperature Source Tympanic Pulse Oximetry 98 Oxygen Delivery Method Room Air Body Fat 77.6 Body Fat Percentage 41.9 Free Fat Mass 107.6 Muscle Mass 102.0 Visceral Mass 11.0 Water Mass 76.2 BMR 1,490 Intake Visit Reasons: (OV) PO 05/21/2018 (Aundrea) Allergies No Known Allergies [No Known Allergies*] Allergy (Verified 05/28/23 11:16) HPI HPI Comments History of Present Illness Details The pt is a?57?yo female who is s/p LSG 05/21/2018. Presents for 5 year post op visit earlier this year.. Weight at last visit on 03/13/2023 was 173.2 pounds with a BMI of 31.7, weight today is 180.8 pounds, representing a 7.6 pound weight gain with a BMI today of 33.1.? Today, 05/28/23, she has a weight of Pt had CT scan to investigate hernia- results below. 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 She is down several lb since her last office visit with Aundrea. She has a weight of 185.2/BMI 33.9 and notes she is interested in panniculectomy/excess skin excision but was told that her weight needs to be stable. The patient reports a history of an umbilical hernia that is been present at least 5 years. It was noted during her sleeve gastrectomy. She denies prior abdominal operations. Patient notes that she had a colonoscopy or earlier this year but was unable to drink all of the prep. As part of her evaluation, she underwent a CT of the abdomen and pelvis that demonstrated an abnormality/thickening of the right colon. Per colonoscopy report: The Olympus video pediatric colonoscope was entered into the rectum and advanced easily to the cecum. The cecum was unable to be adequately visualized due to some retained food debris and stool. Attempts at irrigation were not successful. I did visualize the ileocecal valve, which appeared normal for the most part IMPRESSION: 1. Negative colonoscopy but limited by a poor prep. [facility] Medical History (Updated 05/28/23 @ 11:36 by Nam Head MD) Bilateral hip bursitis Intestinal malabsorption following gastrectomy Adult BMI 35.0-35.9 kg/sq m Obesity (BMI 30-39.9) Arthritis of left upper arm delivery delivered Varicose veins during , antepartum Hypertension Facial palsy Morbid obesity Surgical History Hx of section History of colonoscopy [place] teeth extracted S/P laparoscopic sleeve gastrectomy Family History Father Hypertension Mother Colon cancer Brother No problems noted. Sister No problems noted. Sister No problems noted. Son No problems noted. Son No problems noted. Maternal Aunt No problems noted. Maternal Aunt No problems noted. 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 Gender identity: Female Physical Exam The patient is non-toxic & in good spirits NC/AT, PERRLA, EOMI Mood, affect & judgment all appear appropriate Sclera anicteric conjunctiva pink and moist Oropharynx is clear with no aphthous ulcers, Mallampati class 4, mucous membranes moist Neck is supple with no masses, adenopathy or bruits Thyroid is nontender and free of dominant masses Heart is regular, normal S1-S2 no rubs or murmurs Lungs are clear and equal anteriorly with no audible wheezing, rubs or dullness to percussion No CVA tenderness present Abdomen is obese no obvious hernia due to redundant abdominal skin. No HSM, rebound, rigidity, guarding, masses or bruits are present. The patient reports some supraumbilical tenderness but there are no trophic skin changes appreciated and no erythema Rectal exam is deferred Skin has good turgor and is free of rashes Extremities free of cyanosis clubbing edema Results Reviewed Results Reviewed: CT abdomen and pelvis 04/17/23 GASTROINTESTINAL TRACT: Asymmetric wall thickening of the right proximal colon questionable for a mass. This area measures approximately 1.8 x 2.2 cm for example coronal reconstructed image 36 and sagittal reconstructed image 90. Correlation with colonoscopy recommended. Small and large bowel is otherwise normal. The appendix is normal. There are postsurgical changes from gastric procedure. ABDOMINAL WALL: Diastasis of the rectus muscles and large umbilical hernia containing fat. This measures 5 x 6 x 9 cm in dimension. Assessment & Plan Assessment & Plan (1) Umbilical hernia: Code(s): K42.9 - Umbilical hernia without obstruction or gangrene (2) Adult BMI 35.0-35.9 kg/sq m: Code(s): Z68.35 - Body mass index [BMI] 35.0-35.9, adult (3) S/P laparoscopic sleeve gastrectomy: Comment: DENISHA 05/21/18, Dr. Quintanilla Code(s): Z98.84 - Bariatric surgery status (4) Hypertension: Code(s): I10 - Essential (primary) hypertension (5) Abnormal abdominal CT scan: Code(s): R93.5 - Abnormal findings on diagnostic imaging of other abdominal regions, including retroperitoneum Plan I have ordered fasting labs on the patient will see her back in a few weeks. I reviewed the findings of an abnormal right colon in the setting of a poor colon prep and have included Dr. Smith, the patient's learning support services director in this communication so that he can review the CT and consider repeat colonoscopy. Patient notes that she did not consume all of the bowel prep. I explained to the patient that the abnormality could represent a tumor or even a cancer and evaluation of this is imperative before considering addressing her hernia since the hernia has been present for more than 5 years and is minimally symptomatic. Will see the patient back in 2-3 weeks. Orders: Orders Comprehensive Met. Panel Today I10 - Essential (primary) hypertension, K42.9 - Umbilical hernia without obstruction or gangrene, Z68.35 - Body mass index [BMI] 35.0-35.9, adult, Z98.84 - Bariatric surgery status Complete Blood Count Auto Diff Today I10 - Essential (primary) hypertension, K42.9 - Umbilical hernia without obstruction or gangrene, Z68.35 - Body mass index [BMI] 35.0-35.9, adult, Z98.84 - Bariatric surgery status Hemoglobin A1c Today I10 - Essential (primary) hypertension, K42.9 - Umbilical hernia without obstruction or gangrene, Z68.35 - Body mass index [BMI] 35.0-35.9, adult, Z98.84 - Bariatric surgery status Prealbumin Today I10 - Essential (primary) hypertension, K42.9 - Umbilical hernia without obstruction or gangrene, Z68.35 - Body mass index [BMI] 35.0-35.9, adult, Z98.84 - Bariatric surgery status Coding Level of Care Code Est Pt Level 4 (99882) Diagnoses Umbilical hernia K42.9 Adult BMI 35.0-35.9 kg/sq m Z68.35 S/P laparoscopic sleeve gastrectomy Z98.84 Hypertension I10 Abnormal abdominal CT scan R93.5
[2023-05-28 11:14] VITALS: BP 144/69; PULSE 71; TEMP 36.2; O2SAT 98; BMI 33.9
== END 2023-05-28 11:35 | disposition home or self-care (01) ==
PROVIDERS: PCP Internal Medicine Geriatric Medicine; Visit Provider Surgery
DX: K42.9 Umbilical hernia without obstruction or gangrene (principal); Z68.35 Body mass index [BMI] 35.0-35.9, adult; Z98.84 Bariatric surgery status; I10 Essential (primary) hypertension; R93.5 Abnormal findings on diagnostic imaging of other abdominal regions, including retroperitoneum
CPT/HCPCS: 99214

== ENCOUNTER → 2023-05-28 11:04 | Outpatient (BNVA) | payer OTHER, SELFPAY | PROVIDERS: PCP Internal Medicine Geriatric Medicine; Visit Provider Surgery | DX: K42.9 Umbilical hernia without obstruction or gangrene (principal); R93.5 Abnormal findings on diagnostic imaging of other abdominal regions, including retroperitoneum; I10 Essential (primary) hypertension; Z98.84 Bariatric surgery status | CPT/HCPCS: 99212 ==

== ENCOUNTER 2023-06-07 12:08 | Outpatient (REF) | payer OTHER, SELFPAY | END 2023-06-07 12:09 | disposition home or self-care (01) | LOC: HO.LAB 12:08 | PROVIDERS: PCP Internal Medicine Geriatric Medicine; Visit Provider Surgery | DX: E66.9 Obesity, unspecified (principal); K42.9 Umbilical hernia without obstruction or gangrene; I10 Essential (primary) hypertension; Z98.84 Bariatric surgery status | CPT/HCPCS: 36415; 80053; 83036; 84134; 85025 ==

== ENCOUNTER 2023-06-07 12:28 | Day surgery (SDC) | payer OTHER, SELFPAY ==
[2023-06-07 12:45] VITALS: BMI 32.0
[2023-06-07 12:48] VITALS: BP 121/77; PULSE 76; RESP 18; TEMP 36.4; O2SAT 98
--- NOTE | 2023-06-07 14:20 | HO.ANESPROP2 ---
HPI - Anesthesia Eval Consult details Narrative: 57 Ffor colonoscopy PMFSH Active Problems Active Problems: All Active Problems (Updated 05/28/23 @ 11:36 by Nam Head MD) Abnormal abdominal CT scan (Acute) Hypertension (Acute) Umbilical hernia (Acute) Encounter for annual routine gynecological examination (Acute) Bilateral hip bursitis (Acute) Skin lesions (Acute) Intestinal malabsorption following gastrectomy (Acute) Benign breast cyst in female (Acute) Adult BMI 35.0-35.9 kg/sq m (Acute) Obesity (BMI 30-39.9) (Acute) S/P laparoscopic sleeve gastrectomy (Acute) Morbid obesity (Acute) Past Medical History Medical History Bilateral hip bursitis Intestinal malabsorption following gastrectomy Adult BMI 35.0-35.9 kg/sq m Obesity (BMI 30-39.9) Arthritis of left upper arm delivery delivered Varicose veins during , antepartum Hypertension Facial palsy Morbid obesity Family History Family History Father Hypertension Mother Colon cancer Brother No problems noted. Sister No problems noted. Sister No problems noted. Son No problems noted. Son No problems noted. Maternal Aunt No problems noted. Maternal Aunt No problems noted. Family/Other History of breast cancer Family history of problems with anesthesia: No Surgical History Surgical History Hx of section History of colonoscopy [place] teeth extracted S/P laparoscopic sleeve gastrectomy History of Problems with Anesthesia: No Social History Social History Alcohol intake: current Alcohol intake frequency: holidays/special occasions only Patient Tobacco Use Status: Never used Tobacco Use of substances other than those prescribed or required for medical reasons: No Are you DNR?: No Advance Directives: No Advance Directives Information Provided: Yes Current occupational status: employed 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 Gender identity: Female Meds Allergies Allergy/AdvReac Type Severity Reaction Status Date / Time No Known Allergies Allergy Verified 05/28/23 11:16 [No Known Allergies*] Active Medications: Current Medications Lactated Ringer's (Lr) 1,000 mls @ 50 mls/hr IVCONT .Q20H DEBO Last Admin: 06/07/23 13:04 Dose: 50 mls/hr Exam Exam Date and Time: June 07, 2023 1420 Height,Weight and Vital Signs: Height 5 ft 2 in Weight 175 lb Last Vital Signs Temp 97.5 F 06/07/23 12:48 Pulse 76 06/07/23 12:48 Resp 18 06/07/23 12:48 BP 121/77 06/07/23 12:48 Pulse Ox 98 06/07/23 12:48 O2 Del Method Room Air 06/07/23 12:48 Airway Mallampati Class: III TM Dist: >3cm Neck ROM: Full Loose/Missing/Broken Teeth: Yes Assessment and Plan Assessment Anesthesia Assessment: Anesthesia Plan Discussed and Chart Reviewed Final Anesthetic Review Family History of Problems with Anesthesia: No History of Problems with Anesthesia: No NPO: Yes ASA Class: II Final Preanesthetic Review: No Changes in Pt Med Stat, Meds/Allgs Chart Reviewed, Consent Obtained/Reviewed and Anes Risks/Benef Reviewed Patient Risk: Low Procedure Risk: Low Anesthetic Plan Anesthetic Plan: MAC: Disposition: Standard PACU
[2023-06-07 14:35] VITALS: BP 111/73; PULSE 80; RESP 16; TEMP 36.1; O2SAT 98
--- NOTE | 2023-06-07 14:39 | PM.OP ---
Brief Operative Note Date of Service: 06/07/23 Pre-op diagnosis: Screening, Abnormal CT of colon Post-op diagnosis: other (Colon polyps) Procedure: Colonoscopy to the cecum and TI with bx/removal of AC polyp, and cold snare polypectomies of TC polyps x 2 and 1 polyp at 30cm. Surgeon: Manfred Smith MD Anesthesia: MAC Was an Route Driver Salesperson used for this Procedure?: No Estimated blood loss (mL): 2.0 Pathology: other (A. Ascending colon polyp B. Transverse colon polyp C. Polyp at 30cm) Condition: stable Disposition: PACU
[2023-06-07 14:50] VITALS: BP 120/80; PULSE 61; RESP 16; O2SAT 99
[2023-06-07 15:02] VITALS: BP 131/83; PULSE 60; RESP 16; TEMP 36.2; O2SAT 99
== END 2023-06-07 15:25 | disposition home or self-care (01) ==
PROVIDERS: PCP Internal Medicine Geriatric Medicine; Visit Provider Internal Medicine
PROC: 0DJD8ZZ Inspection of Lower Intestinal Tract, Via Natural or Artificial Opening Endoscopic (ICD-10-PCS; CPT 45378; principal; 2023-06-07 13:30)
DX: R93.3 Abnormal findings on diagnostic imaging of other parts of digestive tract (principal); Z86.010 Personal history of colon polyps; D12.3 Benign neoplasm of transverse colon; K63.5 Polyp of colon; K57.30 Diverticulosis of large intestine without perforation or abscess without bleeding; K64.8 Other hemorrhoids; K64.4 Residual hemorrhoidal skin tags; I10 Essential (primary) hypertension; Z79.899 Other long term (current) drug therapy; Z98.84 Bariatric surgery status; Z79.82 Long term (current) use of aspirin
CPT/HCPCS: 45385; 45380; 88305

== ENCOUNTER → 2023-06-18 11:01 | Outpatient (BNVA) | payer OTHER, SELFPAY | PROVIDERS: PCP Internal Medicine Geriatric Medicine; Visit Provider Dietitian, Registered | DX: E66.9 Obesity, unspecified (principal) | CPT/HCPCS: 97803 ==

== ENCOUNTER 2023-06-27 10:48 | Outpatient (AMB) | payer OTHER, MEDICAID, SELFPAY ==
--- NOTE | 2023-06-27 10:48 | A.OFFVIS_ITS ---
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 Presents for 5 year post op visit earlier this year.. Weight at last visit on 03/13/2023 was 173.2 pounds with a BMI of 31.7, weight today is 180.8 pounds, representing a 7.6 pound weight gain with a BMI today of 33.1.? Today, 06/27/23, she has a weight of 183.4/BMI 33.[address] scan to investigate hernia- results below. 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 She is interested in panniculectomy/excess skin excision but was told that her weight needs to be stable. She notes that she has been using a cream under her panniculus that Aundrea prescribed and is having skin irritation as well as redness/itching. The patient reports a history of an umbilical hernia that is been present at least 5 years. It was noted during her sleeve gastrectomy. She denies prior abdominal operations. She reports minimal symptoms from it but would like to have it repaired. She voiced concern over her weight gain since bariatric surgery and believes she can drop back down to 160 lb successfully and would like to do so before having hernia repair. Patient notes that she had a repeat colonoscopy 2 weeks ago. As part of her evaluation, she underwent a CT of the abdomen and pelvis that demonstrated an abnormality/thickening of the right colon, but there is no evidence of endoscopic anomaly per Dr. Smith. Per colonoscopy report: Colonoscopy on 06/07/2023 is reported as no limitations and an adequate prep; a transverse colon tubular adenoma with no high-grade dysplasia was seen, and ascending colon hyperplastic polyp was removed and there was no evidence noted by Dr. Smith of any right colon anomalous/malignant/dysplastic growth. [facility] Medical History Bilateral hip bursitis Intestinal malabsorption following gastrectomy Adult BMI 35.0-35.9 kg/sq m Obesity (BMI 30-39.9) Arthritis of left upper arm delivery delivered Varicose veins during , antepartum Hypertension Facial palsy Morbid obesity Surgical History Hx of section History of colonoscopy [place] teeth extracted S/P laparoscopic sleeve gastrectomy Family History (Reviewed 06/27/23 @ 11: by Nam Head MD) Father Hypertension Mother Colon cancer Brother No problems noted. Sister No problems noted. Sister No problems noted. Son No problems noted. Son No problems noted. Maternal Aunt No problems noted. Maternal Aunt No problems noted. 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 No HSM, rebound, rigidity, guarding, masses or bruits are present. The patient reports some supraumbilical tenderness but there are no trophic skin changes appreciated regarding the hernia and no erythema, but there is infra pannicular wetness in redness with no significant tenderness. Results Reviewed Results Reviewed: Labs from 06/07/2023 Hemoglobin is normal at 14.4 with normal indices, white blood cell count normal at 5.7, platelet count 224 K Pre-albumin low normal at 26.0, albumin 4.2, electrolytes within normal parameters BUN 13, creatinine 0.61 Hemoglobin A1c 4.9 LFTs within normal parameters Repeat colonoscopy dated 06/07/[address] Smith showed no anomaly in the cecum or ascending colon with the good prep without limitation. A transverse colon tubular adenoma was removed with no high-grade dysplasia. CT abdomen and pelvis 04/17/23 Measurements show a hernia defect below a diastasis recti. The defect is 3.6 x 3.0 x 1.6 cm by my measurements GASTROINTESTINAL TRACT: Asymmetric wall thickening of the right proximal colon questionable for a mass. This area measures approximately 1.8 x 2.2 cm for example coronal reconstructed image 36 and sagittal reconstructed image 90. Correlation with colonoscopy recommended. Small and large bowel is otherwise normal. The appendix is normal. There are postsurgical changes from gastric procedure. ABDOMINAL WALL: Diastasis of the rectus muscles and large umbilical hernia containing fat. This measures 5 x 6 x 9 cm in dimension. Assessment & Plan Assessment & Plan (1) Obesity (BMI 30-39.9): Code(s): E66.9 - Obesity, unspecified (2) S/P laparoscopic sleeve gastrectomy: Comment: DOS 05/21/18, Dr. Quintanilla Code(s): Z98.84 - Bariatric surgery status (3) Umbilical hernia: Code(s): K42.9 - Umbilical hernia without obstruction or gangrene (4) Hypertension: Code(s): I10 - Essential (primary) hypertension (5) Abnormal abdominal CT scan: Code(s): R93.5 - Abnormal findings on diagnostic imaging of other abdominal regions, including retroperitoneum Plan The patient requested guidance regarding her weight regain following bariatric surgery and notes that she should be able to reach 160 lb successfully. She has been scheduled with Katarzyna Woodson. She is also going to purchase protein shakes based on today's discussion. The risk of recurrent hernia in the setting of weight regain/fluctuation was discussed and apparently understood. The patient would like to be re-evaluated in a couple of months to consider laparoscopic hernia repair with mesh. The inherent risks of bleeding, infection, hernia recurrence were discussed. The importance of controlling any skin infections prior to mesh placement was also discussed. Patient will follow up with Aundrea in August and see me in September, sooner if she is having hernia problems. Coding Level of Care Code Est Pt Level 4 (06067) Diagnoses Obesity (BMI 30-39.9) E66.9 S/P laparoscopic sleeve gastrectomy Z98.84 Umbilical hernia K42.9 Hypertension I10 Abnormal abdominal CT scan R93.5
[2023-06-27 10:54] VITALS: BP 121/65; PULSE 77; TEMP 36.2; O2SAT 99; BMI 33.5
== END 2023-06-27 11:24 | disposition home or self-care (01) ==
PROVIDERS: PCP Internal Medicine Geriatric Medicine; Visit Provider Surgery
DX: E66.9 Obesity, unspecified (principal); Z98.84 Bariatric surgery status; K42.9 Umbilical hernia without obstruction or gangrene; I10 Essential (primary) hypertension; R93.5 Abnormal findings on diagnostic imaging of other abdominal regions, including retroperitoneum
CPT/HCPCS: 99214

== ENCOUNTER → 2023-06-27 10:48 | Outpatient (BNVA) | payer OTHER, SELFPAY | PROVIDERS: PCP Internal Medicine Geriatric Medicine; Visit Provider Surgery | DX: E66.9 Obesity, unspecified (principal); K42.9 Umbilical hernia without obstruction or gangrene; R93.5 Abnormal findings on diagnostic imaging of other abdominal regions, including retroperitoneum; I10 Essential (primary) hypertension; Z98.84 Bariatric surgery status; Z68.33 Body mass index [BMI] 33.0-33.9, adult | CPT/HCPCS: 99212 ==

== ENCOUNTER 2023-10-24 10:22 | Outpatient (REF) | payer OTHER, SELFPAY ==
[2023-10-31 20:19] LABS: HPV mRNA E6/E7 rflx Not Detected (Not Detected)
== END 2023-10-24 10:23 | disposition home or self-care (01) ==
LOC: HO.LNP 10:22
PROVIDERS: PCP Internal Medicine Geriatric Medicine; Visit Provider Advanced Practice Midwife
DX: Z01.419 Encounter for gynecological examination (general) (routine) without abnormal findings (principal); N64.4 Mastodynia
CPT/HCPCS: 87624; 88142

== ENCOUNTER 2023-10-24 10:22 | Outpatient (AMB) | payer OTHER, SELFPAY ==
--- NOTE | 2023-10-24 10:23 | MHC.OFFVIS ---
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 She is doing well with concerns: left breast pain for 3 weeks, she denies any injuries or trauma to the region. Attempting to eat a healthy diet with calcium and vitamin D, no exercise. Currently not sexually active, w/medical concerns. Denies any vaginal irritation. Last pap smear; 2018. Last mammogram; 2022. Colonoscopy is UTD. Denies any family history of ovarian cancer. FH colon cancer-mom, breast cancer-maternal cousin. [facility] Medical History Bilateral hip bursitis Intestinal malabsorption following gastrectomy Adult BMI 35.0-35.9 kg/sq m Obesity (BMI 30-39.9) Arthritis of left upper arm delivery delivered Varicose veins during , antepartum Hypertension Facial palsy Morbid obesity Surgical History Hx of section History of colonoscopy [place] teeth extracted S/P laparoscopic sleeve gastrectomy Family History Father Hypertension Mother Colon cancer Brother No problems noted. Sister No problems noted. Sister No problems noted. Son No problems noted. Son No problems noted. Maternal Aunt No problems noted. Maternal Aunt No problems noted. 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 Gender identity: Female Female Reproductive History Menstrual Total pregnancies: 2 Full term: 2 Number of Living Children: 2 Date of last pap smear: 10/04/18 (neg pap and hpv) Date of Mammogram: 10/13/22 (Birad 1) Review of Systems Const All systems reviewed & are unremarkable except as noted in HPI and below Reports as per HPI Eyes Reports no additional complaints ENT Reports no additional complaints Card Reports no additional complaints Resp Reports no additional complaints GI Reports as per HPI and Reports no additional complaints Reports as per HPI Musc Reports no additional complaints Skin/Breast Reports as per HPI Neuro Reports no additional complaints Psych Reports no additional complaints Endo Reports no additional complaints Aguilar/Lymph Reports no additional complaints Aller/Immun Reports no additional complaints Physical Exam Vital Signs: Last Vital Signs BP 100/66 10/24/23 10:24 BMI result Body Mass Index 39.7 Const General: cooperative, healthy appearing, no acute distress, well developed and alert Orientation/consciousness: patient oriented x3 HEENT Head: Yes normal to inspection Eyes General: appearance normal, both eyes and all related structures Neck Neck: Yes normal visual inspection Thyroid: Thyroid normal Chest Other: Left breast pain at 07:00 o'clock position. Chest palpation & inspection: normal inspection of the chest and other (no puckering, dimpling, peau de orange, retraction, discharge, masses) Breast/axilla inspection: normal inspection of the breasts Breast/axilla palpation: normal palpation of the breasts Resp Effort & Inspection: normal respiratory effort GI Inspection: Yes normal to inspection and Yes obesity Palpation (GI): Soft to palpation Rectal Exam - Female: deferred General: Yes bladder normal to palpation External Female Exam: normal external appearance and normal appearance of the urethra Speculum Exam - Vagina: normal appearance of the vagina, normal palpation, normal vaginal discharge and vagina atrophic Speculum Exam - Cervix: normal appearance of the cervix, normal palpation and Other cervical findings present (Bled slightly with Pap) Bimanual exam- vagina & uterus: normal bimanual exam, normal palpation, uterine size normal, bladder normal to palpation, normal palpation and non-tender Bimanual Exam- Adnexa, other: no masses Skin General skin exam: no rashes or lesions noted Rashes: no rashes Neuro General: patient oriented x3 Cognition (Neuro): normal cognition Extrem General: Yes normal to inspection Psych Attitude: cooperative Thought process: Normal thought process present Assessment & Plan Assessment & Plan (1) Encounter for well woman exam with routine gynecological exam: Code(s): Z01.419 - Encounter for gynecological examination (general) (routine) without abnormal findings (2) Breast pain: Code(s): N64.4 - Mastodynia (3) Breast pain, left: Code(s): N64.4 - Mastodynia Plan Discussed: Current recommendations for pap smears per ASCCP guidelines. Breast awareness, periodic self breast exams and yearly mammogram. Maintain a healthy lifestyle, well balanced diet including Calcium 1,200 mg and Vitamin D 600 IU daily, and routine exercise. Breast workup to include ultrasound and diagnostic mammogram, return to the office for follow-up pending results. Contact the office with any postmenopausal bleeding. Patient verbalizes understanding and agrees to the plan of care. She was given opportunity to ask questions and all questions were answered to the best of my ability. 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 This note is constructed using voice recognition software. While every effort has been made to ensure accuracy, coil winder strap errors may have been included. Orders: Orders MM tomosynthesis diagnostic BI Today N64.4 - Mastodynia, Z12.31 - Encounter for screening mammogram for malignant neoplasm of breast Pap Smear Today Z01.419 - Encounter for gynecological examination (general) (routine) without abnormal findings US breast RT complete Today N64.4 - Mastodynia Coding Level of Care Code Est Pt Prev Care 40-64y(52708) Diagnoses Encounter for well woman exam with routine gynecological exam Z01.419 Breast pain N64.4 Breast pain, left N64.4
[2023-10-24 10:24] VITALS: BP 100/66; BMI 39.7
--- OUTSIDE RECORDS SUMMARY | 2023-10-24 10:24 | XMS_ITS | Patient Health Record ---
Author Name Unknown Organization [facility] Address [address] [place] [address] Care Team Providers Care Spool Sorter Name Role Phone Name Win MOORE Primary Care Provider Manfred Huff Unavailable [phone] ALLERGIES No Known Allergies RESULTS Component Value Reference Range Notes Pathology Reviewed date:06/16/2023 12:55:00 AM Interpretation: Performing Lab:[facility], [address] [place] [id number] Notes/Report: REASON FOR REFERRAL Referring Provider First Name Win Referring Provider Last Name Name Referring Provider Speciality Internal M edicine Referred Organization [facility] Referred Provider Manfred Dewey Referred Address [address] [facility], [place],[address], Referred Provider Specialty Gastroentero logy General Notes Ramila Rosales 023 11:38:23 AM EDT > call [facility] for office visit with dr dewey on [phone], Ramila Rosales 01/24/2023 10:54:56 AM EDT > requested [facility] referral from [facility] Referral Priority Routine MEDICATIONS Medication SIG (Take, Route, Frequency, Duration) Notes Start Date End Date Status Dulcolax (colon prep) 5 MG take at 3:00 p.m and 7:00p.m. Orally two tablets twice a day 2 days before the colonoscopy and again on the day before the colonoscopy for 2 days 06/01/2023 Activ e MiraLax (colon prep) 17 GM/SCOOP 1/2 of a 238gm bottle mixed with 1 quart of Gatorade or Crystal Light Orally begin at 4:00 p.m. 2 days before the procedure and repeat on the day before the colonoscopy for 2 days 06/01/2023 Active Vitamin B12 Active Vitamin D3 Active Probiotic Blend Acti ve MiraLax (colon prep) 17 GM/SCOOP 1 238Gm bottle mixed with Gatorade or Crystal Light Orally begin at 5:00 p.m. the day before the procedure for 1 day 03/09/2023 Active Dulcolax (colon prep) 5 MG take at 3:00 p.m and 7:00p.m. Orally two tablets twice a day for one day for 1 day 03/09/2023 Active SOCIAL HISTORY Tobacco Use: Social History Observation Description Date Details (start date - stop date) Never Smoker NA - NA Sex Assigned At : Social History Observation Description Sex Assigned At Unknown Tobacco Use/Smoking Question Answer Notes Patient is a nonsmoker Alcohol Screen Question Answer Notes Did you have a drink contain ing alcohol in the past year? Yes How often did you have a dri nk containing alcohol in the past year? Never (0 point) How many drinks did you have on a typical day when you were drinking in the past year? 1 or 2 drinks (0 point) How often did you have 6 or more drinks on one occasion in the past year? Never (0 point) Points 0 Interpretation Negative PROBLEMS Problem Type ICD Code Onset Dates Problem Status W/U Status Risk SNOMED Code Notes Problem History of colonic polyps (Z86.010) Active confirmed 079517001 Problem Encounter for screening for malignant neoplasm of colon (Z12.11) Active confirmed 464992626 Problem Preprocedural examination (Z01.818) Active confirmed 870281635 Problem History of colon polyps (Z86.010) Active confirmed History of polyp of colon (952091046) Problem Diverticulosis of colon (K57.30) Active confirmed Diverticulosi s of colon (904676073) Problem Abnormal CT scan, colon (R93.3) Active confirmed 607044943 Problem Diverticulosis of large intestine without perforation or abscess without bleeding (K57.30) Active confirmed Diverticul ar disease of colon (313629165) VITAL SIGNS Temperature 98.4 degrees Fahrenheit 03/08/2023 Blood pressure diastolic 00 mm Hg 03/08/2023 Height 62 in 03/08/2023 Blood pressure systolic 000 mm Hg 03/08/2023 Weight 176 lbs 03/08/2023 BMI 32.19 kg/m2 03/08/2023 Encounters Encounter Location Date Provider Diagnosis [facility] [address] [place] [id number] 04/16/2023 Manfred Dewey Colon cancer screeni ng Z12.11 ; History of colon polyps Z86.010 ; Diverticulosis of colon K57.30 and Internal hemorrhoids K64.8 [facility] [address] [place] [phone] 06/07/2023 Manfred Dewey Colon polyps K63.5 ; Diverticulosis of large intestine without perforation or abscess without bleeding K57.30 ; Other hemorrhoids K64.[address] scan, colon R93.3 [facility] [address] [place] [phone] 03/08/2023 Manfred Dewey History of colonic polyps Z86.010 ; Preprocedural examination Z01.818 and Encounter for screening for malignant neoplasm of colon Z12.11 [facility] [address] [place] [phone] 03/08/2023 Manfred Dewey [facility] [address] [place] [phone] 04/12/2023 Manfred Dewey [facility] [address] [place] [id number] 05/10/[address] scan, co mo R93.3 and History of colon polyps Z86.010 [facility] [address] [place] [phone] 06/07/2023 Manfred Dewey [facility] [address] [place] [phone] 06/11/2023 Manfred Dewey ASSESSMENTS Encounter Date Diagnosis Assessment Notes Treatment Notes Treatment Clinical Notes 04/16/2023 Colon cancer screening (ICD-10 - Z12.11) 04/16/2023 History of colon polyps (ICD-10 - Z86.010) 06/07/2023 Diverticulosis of large intestine without perforation or abscess without bleeding (ICD-10 - K57.30) 06/07/2023 Colon polyps (ICD-10 - K63.5) 03/08/2023 Preprocedural examination (ICD-10 - Z01.818) 03/08/2023 History of colonic polyps (ICD-10 - Z86.010) 05/10/2023 History of colon polyps (ICD-10 - Z86.010) 05/10/[address] scan, colon (ICD-10 - R93.3) 04/16/2023 Diverticulosis of colon (ICD-10 - K57.30) 06/07/2023 Other hemorrhoids (ICD-10 - K64.8) 03/08/2023 Encounter for screening for malignant neoplasm of colon (ICD-10 - Z12.11) 04/16/2023 Internal hemorrhoids (ICD-10 - K64.8) 06/07/[address] scan, colon (ICD-10 - R93.3) PLAN OF TREATMENT Future Test Test Name Order Date COLONOSCOPY 08/07/2017 COLONOSCOPY 03/08/2023 COLONOSCOPY 05/31/2023 Insurance Providers Payer Name Payer Address Payer Phone Subscriber Number Group Number Insured Name Patient Relationship to Insured Coverage Start Date Coverage End Date [facility] [address] [address] [place] [phone] [id number] FIORELLA MONTIEL Self - patient is the insured MEDICAL (GENERAL) HISTORY Medical History History ICD Code Hypertension Denies [place],DM,CVA,Lung disease,renal dise ase Colonoscopy in 05/2015 in [place]- -the report describes a 10 mm polyp in the rectum that was removed by snare polypectomy--the report describes a suboptimal prep and therefore the doctor recommended another colonoscopy within one year Negative colonoscopy in 11/2017 Surgical History Surgery Date(Month/Year) x 2 1996,2001 [place] teeth extraction [place] [facility]lost > 100# 2018
== END 2023-10-24 11:02 | disposition home or self-care (01) ==
LOC: HO.HWS 10:22
PROVIDERS: PCP Internal Medicine Geriatric Medicine; Visit Provider Advanced Practice Midwife
DX: Z01.419 Encounter for gynecological examination (general) (routine) without abnormal findings (principal); N64.4 Mastodynia
CPT/HCPCS: 99396

== ENCOUNTER 2023-12-14 14:41 | Outpatient (REF) | payer OTHER, SELFPAY ==
--- NOTE | ~2023-12-14 | US_ITS ---
EXAMINATION: MM DIAGNOSTIC DIGITAL BREAST TOMOSYNTHESIS, BILATERAL US BREAST LIMITED, LEFT MAMMOGRAPHY: CLINICAL INFORMATION: 58-year-old female complaining of left breast pain and tenderness, episodic, 7:00 position, mid depth. This was marked by the technologist with the aid of the patient. Patient also due for routine bilateral screening. COMPARISON: Mammography: 10/13/2022, 09/21/2022, 09/19/2021, 09/07/2020, 04/25/2019, 04/14/2019, 04/10/2018, ultrasound left breast 04/25/2019 (left sebaceous cyst). TECHNIQUE: Digital breast tomosynthesis is performed in both the craniocaudal and mediolateral oblique views along with computer-aided detection (CAD). Synthesized 2D images are generated from the tomosynthesis. In addition, a full-field left 3-D mediolateral view was included. This was followed by diagnostic left breast ultrasound. FINDINGS: There are scattered areas of fibroglandular density (ACR BI-RADS breast composition Category b). There are bilateral skin calcifications again identified without significant change. There are stable small circumscribed nodules in both breasts, findings most likely related to small cysts, lymph nodes, or fibroadenomas. These have been unchanged since 2019. Parenchymal pattern is stable from prior exams. No suspicious masses, suspicious grouped calcifications, or areas of architectural distortion in either breast. No skin or axillary abnormalities. There is no mammographic abnormality in the region of pain marked 7:00 axis left breast. ULTRASOUND: CLINICAL INFORMATION: Left breast pain and tenderness 7:00 axis. COMPARISON: Correlation made with prior 04/25/2019. TECHNIQUE: Targeted sonographic evaluation was performed using a high frequency linear transducer. Attention was given to the left breast lower inner quadrant to include the area of tenderness and pain. Selected archived documentation. FINDINGS: LEFT BREAST: There is a mixture of fatty and fibroglandular tissue. No suspicious mass is seen. There is no pathologic acoustic shadowing. There is no cystic abnormality. No sonographic correlate to the region of left breast tenderness and pain. US/US breast LT limited mamm only IMPRESSION: -There are no findings suspicious for malignancy in either breast. There have been no significant changes from prior studies. -No mammographic or sonographic abnormality in the 7:00 region left breast to explain breast pain. Recommend clinical management and follow-up. -Stable benign findings in both breasts. OVERALL ASSESSMENT: Mammography: BI-RADS 2 - Benign Findings Ultrasound: BI-RADS 2 - Benign Findings RECOMMENDATION: 1. Patient should be managed based on the clinical impression. 2. Otherwise, routine annual screening mammography. This patient's information was entered into a reminder system with a target due date for their next mammogram.
== END 2023-12-14 14:42 | disposition home or self-care (01) ==
LOC: HO.MAMMO 14:41
PROVIDERS: PCP Internal Medicine Geriatric Medicine; Visit Provider Internal Medicine Geriatric Medicine
DX: N64.4 Mastodynia (principal)
CPT/HCPCS: 76642; 77062; 77066

== ENCOUNTER → 2023-12-14 15:00 | Outpatient (BNV) | payer OTHER, SELFPAY | PROVIDERS: PCP Internal Medicine Geriatric Medicine; Visit Provider Radiology Diagnostic Radiology | DX: N64.4 Mastodynia (principal) | CPT/HCPCS: 76642; 77062; 77066 ==

== ENCOUNTER 2023-12-18 14:40 | Outpatient (AMB) | payer OTHER, SELFPAY ==
[2023-12-18 14:44] VITALS: BP 132/70
--- NOTE | 2023-12-18 14:44 | MHC.OFFVIS ---
Intake Vital Signs 12/18/23 14:44 Height 5 ft 2 in BP 132/70 Intake Visit Reasons: Breast US follow up Cardiopulmonary Technician And Eeg Tech: Cardiopulmonary Technician And Eeg Tech Present (Anastasia) Allergies No Known Allergies [No Known Allergies*] Allergy (Verified 12/18/23 14:44) HPI HPI Comments History of Present Illness Details Patient is here today for a follow-up ultrasound and mammogram for breast pain. She reports her breast pain has resolved. She endorses sports bras and comfortable underclothing. She has no other concerns today. [facility] Medical History Bilateral hip bursitis Intestinal malabsorption following gastrectomy Adult BMI 35.0-35.9 kg/sq m Obesity (BMI 30-39.9) Arthritis of left upper arm delivery delivered Varicose veins during , antepartum Hypertension Facial palsy Morbid obesity Surgical History Hx of section History of colonoscopy Erwin teeth extracted S/P laparoscopic sleeve gastrectomy Family History Father Hypertension Mother Colon cancer Brother No problems noted. Sister No problems noted. Sister No problems noted. Son No problems noted. Son No problems noted. Maternal Aunt No problems noted. Maternal Aunt No problems noted. 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 Gender identity: Female Review of Systems Const All systems reviewed & are unremarkable except as noted in HPI and below Reports no additional complaints Skin/Breast Reports system reviewed and no additional complaints, except as documented and Reports as per HPI Physical Exam Vital Signs: Last Vital Signs BP 132/70 12/18/23 14:44 Const General: cooperative, healthy appearing and no acute distress Chest Breast/axilla inspection: normal inspection of the breasts and normal inspection of the axillae Breast/axilla palpation: normal palpation of the breasts Skin General skin exam: no rashes or lesions noted Results Reviewed Results Reviewed: [facility] [address] [place], [place] [address] Mammography Report Signed Patient: Sheila Hernandez MR#: [id number] : 1965 Acct:[id number] Age/Sex: 58 / F ADM Date: 12/14/23 Loc: HO.MAMMO Attending Dr: Win Barlow MD Ordering Physician: Adwoa Reilly CNM Results: 2Benign Findings Date of Service: 12/14/23 Follow Up: 1 Year From Original Mammogram Procedure(s): MM tomosynthesis diagnostic BI Accession Number(s): [id number] cc: Adwoa Reilly CNM; Name,Win MOORE~ EXAMINATION: MM DIAGNOSTIC DIGITAL BREAST TOMOSYNTHESIS, BILATERAL US BREAST LIMITED, LEFT MAMMOGRAPHY: CLINICAL INFORMATION: 58-year-old female complaining of left breast pain and tenderness, episodic, 7:00 position, mid depth. This was marked by the technologist with the aid of the patient. Patient also due for routine bilateral screening. COMPARISON: Mammography: 10/13/2022, 09/21/2022, 09/19/2021, 09/07/2020, 04/25/2019, 04/14/2019, 04/10/2018, ultrasound left breast 04/25/2019 (left sebaceous cyst). TECHNIQUE: Digital breast tomosynthesis is performed in both the craniocaudal and mediolateral oblique views along with computer-aided detection (CAD). Synthesized 2D images are generated from the tomosynthesis. In addition, a full-field left 3-D mediolateral view was included. This was followed by diagnostic left breast ultrasound. FINDINGS: There are scattered areas of fibroglandular density (ACR BI-RADS breast composition Category b). There are bilateral skin calcifications again identified without significant change. There are stable small circumscribed nodules in both breasts, findings most likely related to small cysts, lymph nodes, or fibroadenomas. These have been unchanged since 2019. Parenchymal pattern is stable from prior exams. No suspicious masses, suspicious grouped calcifications, or areas of architectural distortion in either breast. No skin or axillary abnormalities. There is no mammographic abnormality in the region of pain marked 7:00 axis left breast. ULTRASOUND: CLINICAL INFORMATION: Left breast pain and tenderness 7:00 axis. COMPARISON: Correlation made with prior 04/25/2019. TECHNIQUE: Targeted sonographic evaluation was performed using a high frequency linear transducer. Attention was given to the left breast lower inner quadrant to include the area of tenderness and pain. Selected archived documentation. FINDINGS: LEFT BREAST: There is a mixture of fatty and fibroglandular tissue. No suspicious mass is seen. There is no pathologic acoustic shadowing. There is no cystic abnormality. No sonographic correlate to the region of left breast tenderness and pain. MM/MM tomosynthesis diagnostic BI IMPRESSION: -There are no findings suspicious for malignancy in either breast. There have been no significant changes from prior studies. -No mammographic or sonographic abnormality in the 7:00 region left breast to explain breast pain. Recommend clinical management and follow-up. -Stable benign findings in both breasts. OVERALL ASSESSMENT: Mammography: BI-RADS 2 - Benign Findings Ultrasound: BI-RADS 2 - Benign Findings RECOMMENDATION: 1. Patient should be managed based on the clinical impression. 2. Otherwise, routine annual screening mammography. This patient's information was entered into a reminder system with a target due date for their next mammogram. Dictated By: Nahun Negrete MD Signed By: <Electronically signed by Nahun Negrete MD in OV> 12/14/23 1540 DD/ 1507 TD/TT: Customer Sales Representative: Assessment & Plan Assessment & Plan (1) Encounter to discuss test results: Code(s): Z71.2 - Person consulting for explanation of examination or test findings Plan Discussed: Ultrasound findings were negative, did not reveal any cause for her breast pain at the time. Advised if the pain recurs and is not resolving to return to the office for further evaluation. Schedule annual exam for next October when due. Continue with routine mammogram screenings. All of her questions and concerns were addressed to the best of my ability and shared decision making. She is agreeable to the plan of care. This note is constructed using voice recognition software. While every effort has been made to ensure accuracy, blood coordinator errors may have been included. Coding Level of Care Code Est Pt Level 3 (11060) Diagnoses Encounter to discuss test results Z71.2
== END 2023-12-18 15:25 | disposition home or self-care (01) ==
LOC: HO.HWS 14:40
PROVIDERS: PCP Internal Medicine Geriatric Medicine; Visit Provider Advanced Practice Midwife
DX: Z71.2 Person consulting for explanation of examination or test findings (principal)
CPT/HCPCS: 99213

== ENCOUNTER → 2023-12-18 14:40 | Outpatient (BNVA) | payer OTHER, SELFPAY | PROVIDERS: PCP Internal Medicine Geriatric Medicine; Visit Provider Advanced Practice Midwife | DX: Z71.2 Person consulting for explanation of examination or test findings (principal) | CPT/HCPCS: 99212 ==

== ENCOUNTER 2024-04-05 08:49 | Outpatient (REF) | payer OTHER, SELFPAY ==
[2024-04-05 09:23] LABS: MANUAL DIFF FLAG NO
[2024-04-05 09:44] LABS: Basophils Percent Auto 0.5 % (0-2); Eosinophils Absolute Auto 0.1 X10*3/uL (0.0-0.4); Eosinophils Percent Auto 1.8 % (0-4); Hematocrit 42.9 % (37.0-47.0); Hemoglobin 14.2 g/dl (12.0-16.0); Imm Gran Abs Auto 0.03 X10*3/uL (0.00-0.03); Imm Gran Pct Auto 0.5 % (0.0-0.4); Lymphocytes Absolute Auto 2.2 X10*3/uL (1.2-4.9); Mean Corpuscular HGB Conc 33.1 g/dl (31.0-35.0); Mean Corpuscular Hemoglobin 28.3 pg (27.0-33.0); Mean Corpuscular Volume 85.6 fL (80.0-98.0); Mean Platelet Volume 9.9 fL (9.4-12.3); Monocytes Absolute Auto 0.3 X10*3/uL (0.1-1.2); Monocytes Percent Auto 5.3 % (2-11); Neutrophils Absolute Auto 3.6 x10*3/uL (2.0-8.3); Neutrophils Percent Auto 56.9 % (45-73); Platelet Count 226 X10*3/uL (160-400); Red Blood Count 5.01 X10*6/uL (4.20-5.50); Red Cell Distribution Width 14.5 % (11.0-16.0); White Blood Count 6.3 X10*3/uL (4.8-10.8)
[2024-04-05 10:01] LABS: Estimated Average Glucose 108 mg/dL; Hemoglobin A1c % 5.4 % (<6.0)
[2024-04-05 10:18] LABS: Alanine Aminotransferase 18 U/L (0-31); Albumin Level 4.1 g/dL (3.5-5.0); Alkaline Phosphatase 96 U/L (39-117); Anion Gap 11 (12-20); Aspartate Amino Transferase 17 U/L (5-31); Bilirubin Total 0.5 mg/dL (0.0-1.0); Blood Urea Nitrogen 15 mg/dL (9-16); Carbon Dioxide 26 mmol/L (22-29); Chloride 106 mmol/L (96-108); Cholesterol 247 mg/dL (<200); Estimated Glomerular Filt Rate > 60; Glucose Random 100 mg/dL (60-115); HDL Cholesterol 53 mg/dL (>40); LDL Cholesterol Calculated 168 mg/dL (<100); Potassium 4.3 mmol/L (3.3-5.1); Sodium 139 mmol/L (135-145); Total Protein 7.4 g/dL (6.5-8.0); Triglycerides 134 mg/dL (<150)
[2024-04-05 10:19] LABS: TSH reflex Free T4 1.84 uIU/mL (0.32-4.0)
[2024-04-07 08:31] LABS: HIV AB/AG Nonreactive (Nonreactive); HIV Num 1 0.06 S/CO (0.00-0.99); ~HepC Num1 0.13 S/CO (0.00-0.79); ~Hepatitis C Antibody Nonreactive (Nonreactive)
== END 2024-04-05 08:50 | disposition home or self-care (01) ==
LOC: HO.LAB 08:49
PROVIDERS: PCP Internal Medicine Geriatric Medicine; Visit Provider Internal Medicine Geriatric Medicine
DX: Z11.4 Encounter for screening for human immunodeficiency virus [HIV] (principal); Z13.1 Encounter for screening for diabetes mellitus; Z13.220 Encounter for screening for lipoid disorders; Z11.59 Encounter for screening for other viral diseases; E66.01 Morbid (severe) obesity due to excess calories; Z98.84 Bariatric surgery status
CPT/HCPCS: 36415; 80053; 80061; 83036; 84443; 85025; 86803; 87389

== ENCOUNTER 2024-10-04 09:07 | Outpatient (REF) | payer MEDICAID, SELFPAY ==
--- OUTSIDE RECORDS SUMMARY | 2024-10-04 09:10 | XMS_ITS | Encounter Summary ---
Author Organization [facility] Address [address] [place] [address] Care Team Providers Care Rag Grader Name Role Phone Name, Win MOORE Primary Care Provider [phone] Encounter Details Date Type Department Care Team (Late st Contact Info) Description 02/12/2023 Abstract [facility] [address] [place], [place] [phone] Name, MD Win [address] [place] [address] Social History Tobacco Use Types Packs/Day Years Used Date Smoking Tobacco: Never Assessed Comments Unknown Sex and Gender Information Value Date Recorded Sex Assigned at Female 07/03/2022 10:30 AM EDT Legal Sex Female 10:30 AM EDT Gender Identity Female 07/03/2022 10:30 AM EDT Sexual Orientation Straight 07/03/2022 10 :30 AM EDT documented as of this encounter Plan of Treatment Not on file documented as of this encounter Procedures Procedure Name Priority Date/Time Associated Diagnosis Comments PAP/HPV Routine 10/04/2018 COLONOSCOPY Routine 11/05/2017 2:53 PM EST documented in this encounter Results * Pap Smear (10/04/2018) Pap Negative for intraephithelial lesion or malignancy Negative for intraephithelial lesion or malignancy, Other HPV Undetected 10/04/2018 us Historical Provider HEALTH MAINTENANCE Final Result * Hm Colonoscopy (11/05/2017 2:53 PM EST) Colonoscopy Normal Normal Narrative Adrianna Naranjo - 11/05/2017 2:53 PM EST Recommended 5 year follow up us Historical Provider HEALTH MAINTENANCE Final Result documented in this encounter Visit Diagnoses Not on filedocumented in this encounter Care Teams Rag Grader Relationship Specialty Start Date End Date Name, MD Win [address] [place] [id number] PCP - General Family Medicine 02/22/17 documented as of this encounter
--- OUTSIDE RECORDS SUMMARY | 2024-10-04 09:10 | XMS_ITS | Encounter Summary ---
Author Organization [employer] [facility] Address [address] [place] [address] [address] [place] [address] Care Team Providers Care Hide And Skin Processing Worker Name Role Phone Win Barlow MD Primary Care Provider [phone] Reason for Referral * Consultation (Routine) - Authorized Specialty Diagnoses / Procedures Referred By Contac t Referred To Contact Nutrition Diagnoses Morbid obesity (CMS/HCC) Win Barlow MD [address] [place] [id number] Phone: tel: fax: Referral ID Status Reason Start Date Expiration Date Visits Requested Visits Authorized [id number] Authorized Consult and Treat 10/02/2024 10/02/2025 1 1 Encounter Details Date Type Department Care Team (Late st Contact Info) Description 10/02/2024 11:30 AM EST Office Visit [facility] [address] [place] [address] Win Barlow MD [address] [place] [phone] Morbid obesity (CMS/HCC) (Primary Dx); Screening for diabetes mellitus; Screening for cholesterol level; History of bariatric surgery Social History Tobacco Use Types Packs/Day Years Used Date Smoking Tobacco: Never Smokeless Tobacco: Never Tobacco Cessation:Counseling Given: Not Answered Alcohol Use Standard Drinks/Week Comments Yes 0 (1 standard drink = 0.6 oz pur e alcohol) socially Depression Answer Date Recorded Patient Health Questionnaire-9 Score 6 11/22/2023 Patient Health Questionnaire-9 Score 6 11/22/2023 Last PHQ-9: Questionnaire Data Not on file 0 11/22/2023 Housing Stability Answer Date Recorded What is your housing situation today? I have yessica gordon 11/22/[address] you li ve. Do you have problems with any of the following? None of the above 11/22/2023 Food Insecurity Answer Date Recorded Within the past 12 months, y ou worried that your food would run out before you got money to buy more: Never True 11/22/2023 Within the past 12 months,th e food you bought just didn't last and you didn't have enough money to get more: Never True Transportation Answer Date Recorded In the past 12 months, has l ack of transportation kept you from medical appts, meetings, work or from getting things needed for daily living? No 11/22/2023 Utilities Answer Date Recorded In the past 12 months, has t he electric, gas, oil or water company threatened to shut off services in your home? No 11/22/2023 Depression Answer Date Recorded Patient Health Questionnaire-2 Score 2 11/22/2023 Comments Unknown Sex and Gender Information Value Date Recorded Sex Assigned at Female 07/03/2022 10:30 AM EDT Legal Sex Female 10:30 AM EDT Gender Identity Female 07/03/2022 10:30 AM EDT Sexual Orientation Straight 07/03/2022 10 :30 AM EDT documented as of this encounter Last Filed Vital Signs Vital Sign Reading Time Taken Comments Blood Pressure 129/76 10/02/2024 11:33 AM EST Pulse 71 10/02/2024 11:33 AM EST Temperature 36.8 ??C (98.3 ??F) 10/02/2024 11:[address] Respiratory Rate 21 10/02/2024 11:33 AM EST Oxygen Saturation 95% 10/02/2024 11:33 AM EST Inhaled Oxygen Concentration - - Weight 108 kg (238 lb 12.8 oz) 10/02/2024 11:33 AM EST Height 154.9 cm (5' 1 ) 10/02/2024 11:33 AM EST Body Mass Index 45.12 10/02/2024 11:33 AM EST documented in this encounter Progress Notes * Win Barlow MD - 10/02/2024 11:30 AM EST Images from the original note were not included. Subjective Patient ID: Sheila Yan is a 58 y.o. female who presents for No chief complaint on file.. Patient comes for a follow-up visit. She is morbidly obese. The patient is unable to lose weight with diet and exercise alone. She had laparoscopic sleeve gastrectomy 2018 at [facility]. Pre surgery weight was 290 pounds and she went down to 168lbs after surgery. Patient then regained weight up to 218 lbsafter surgery and then lost down to 190lbs purchasing Wegovy out of pocket. Most recently she regained up to 238 off the Wegovy. She does not have any personal history or family history of thyroid cancer. No personal history of pancreatitis. She did not have problem tolerating the Wegovy in the past. Review of Systems Constitutional: Negative for chills and fever. HENT: Negative for sore throat. Respiratory: Negative for cough, shortness of breath and wheezing. Cardiovascular: Negative for chest pain, palpitations and leg swelling. Gastrointestinal: Negative for abdominal pain. Visit Vitals BP 129/76 (BP Location: Left arm, Patient Position: Sitting, BP Cuff Size: Large adult) Pulse 71 Temp 98.3 ??F (36.8 ??C) (Temporal) Resp 21 Ht 5' 1 (1.549 m) Wt 238 lb 12.8 oz (108 kg) SpO2 95% BMI 45.12 kg/m?? Smoking Status Never BSA 2.16 m?? Objective Physical Exam Constitutional: Appearance: Normal appearance. She is obese. Neck: Thyroid: No thyroid mass, thyromegaly or thyroid tenderness. Cardiovascular: Rate and Rhythm: Normal rate and regular rhythm. Heart sounds: No murmur heard. No gallop. Pulmonary: Effort: Pulmonary effort is normal. No respiratory distress. Breath sounds: Normal breath sounds. No wheezing. Musculoskeletal: Right lower leg: No edema. Left lower leg: No edema. Neurological: Mental Status: She is alert. Latest Reference Range & Units 04/05/24 09:21 Glucose 60 - 115 mg/dL 100 Urea Nitrogen (BUN) 9 - 16 mg/dL 15 Creatinine, Serum 0.5 - 1.4 mg/dL 0.68 Sodium 135 - 145 mmol/L 139 Potassium 3.3 - 5.1 mmol/L 4.3 Chloride 96 - 108 mmol/L 106 Carbon Dioxide 22 - 29 mmol/L 26 Calcium 8.4 - 10.2 mg/dL 10.0 Albumin Level 3.5 - 5.0 g/dL 4.1 Bilirubin, Total 0.0 - 1.0 mg/dL 0.5 AST 5 - 31 U/L 17 ALT 0 - 31 U/L 18 Anion Gap 12 - 20 11 (L) Total Protein 6.5 - 8.0 g/dL 7.4 Cholesterol <200 mg/dL 247 (H) HDL Cholesterol >40 mg/dL 53 LDL Cholesterol Calculated <100 mg/dL 168 (H) Triglycerides <150 mg/dL 134 Red Blood Count 4.20 - 5.50 X10*6/uL 5.01 Hemoglobin 12.0 - 16.0 g/dl 14.2 Hematocrit 37.0 - 47.0 % 42.9 Mean Corpuscular Volume 80.0 - 98.0 fL 85.6 Mean Corpuscular Hemoglobin 27.0 - 33.0 pg 28.3 Mean Corpuscular HGB Conc 31.0 - 35.0 g/dl 33.1 Red Cell Distribution Width 11.0 - 16.0 % 14.5 Platelet Count 160 - 400 X10*3/uL 226 Eosinophils Percent Auto 0 - 4 % 1.8 Lymphocytes Absolute Auto 1.2 - 4.9 X10*3/uL 2.2 Basophils Absolute Auto 0.0 - 0.2 X10*3/uL 0.0 Monocytes Absolute Auto 0.1 - 1.2 X10*3/uL 0.3 Neutrophils Absolute Auto 2.0 - 8.3 x10*3/uL 3.6 Neutrophils Percent Auto 45 - 73 % 56.9 Basophils Percent Auto 0 - 2 % 0.5 Eosinophils Absolute Auto 0.0 - 0.4 X10*3/uL 0.1 Lymphocytes Percent Auto 20 - 40 % 35.0 Monocytes Percent Auto 2 - 11 % 5.3 Imm Gran Abs Auto 0.00 - 0.03 X10*3/uL 0.03 Imm Gran Pct Auto 0.0 - 0.4 % 0.5 (H) Hemoglobin A1c <6.0 % 5.4 TSH reflex Free T4 0.32 - 4.0 uIU/mL 1.84 Hepatitis C Antibody Nonreactive Nonreactive HIV AB/AG Nonreactive Nonreactive Alkaline Phosphatase 39 - 117 U/L 96 ESTIMATED AVERAGE GLUCOSE mg/dL 108 Estimated Glomerular Filt Rate >60 Mean Platelet Volume 9.4 - 12.3 fL 9.9 NRBC Abs Auto 0.0 - 0.012 X10*3/uL 0.000 NRBC Pct Auto 0.0 - 0.2 /100WBC 0.0 White Blood Count 4.8 - 10.8 X10*3/uL 6.3 (L): Data is abnormally low (H): Data is abnormally high Assessment/Plan Diagnoses and all orders for this visit: Morbid obesity (CMS/HCC) Comments: I recommended trial of phentermine. We discussed the side effects of the med and she is asked to call with any problems Referral to nutrition Check the fasting blood work listed below I explained that I will try to put her back on GLP1 treatment at her next visit. Orders: - CBC auto differential; Future - Iron And Total Iron Binding Capacity; Future - Comprehensive Metabolic Panel; Future - Hemoglobin A1c; Future - Lipid Panel, Standard; Future - TSH W/Reflex to FT4; Future - PTH, Intact Without Calcium; Future - Vitamin D, 25-Hydroxy, Total, Immunoassay; Future - Referral to Nutrition Therapy; Future Screening for diabetes mellitus - CBC auto differential; Future - Iron And Total Iron Binding Capacity; Future - Comprehensive Metabolic Panel; Future - Hemoglobin A1c; Future - Lipid Panel, Standard; Future - TSH W/Reflex to FT4; Future - PTH, Intact Without Calcium; Future - Vitamin D, 25-Hydroxy, Total, Immunoassay; Future Screening for cholesterol level - CBC auto differential; Future - Iron And Total Iron Binding Capacity; Future - Comprehensive Metabolic Panel; Future - Hemoglobin A1c; Future - Lipid Panel, Standard; Future - TSH W/Reflex to FT4; Future - PTH, Intact Without Calcium; Future - Vitamin D, 25-Hydroxy, Total, Immunoassay; Future History of bariatric surgery - CBC auto differential; Future - Iron And Total Iron Binding Capacity; Future - Comprehensive Metabolic Panel; Future - Hemoglobin A1c; Future - Lipid Panel, Standard; Future - TSH W/Reflex to FT4; Future - PTH, Intact Without Calcium; Future - Vitamin D, 25-Hydroxy, Total, Immunoassay; Future Other orders - phentermine 15 MG capsule; Take 1 capsule (15 mg) by mouth before breakfast. documented in this encounter Plan of Treatment Scheduled Orders Name Type Priority Associated Diagnoses Orde r Schedule CBC auto differential Lab Routine Morbid obesity ([facility]) Screening for diabetes mellitus Screening for cholesterol level History of bariatric surgery Expected: 10/02/2024 (Approximate), Expires: 10/02/2025 Iron And Total Iron Binding Capacity Lab Routine Morbid obesity ([facility]) Screening for diabetes mellitus Screening for cholesterol level History of bariatric surgery Expected: 10/02/2024, Expires: 10/02/2025 Comprehensive Metabolic Panel Lab Routine Morbid obesity ([facility]) Screening for diabetes mellitus Screening for cholesterol level History of bariatric surgery Expected: 10/02/2024 (Approximate), Expires: 10/02/2025 Hemoglobin A1c Lab Routine Morbid obesity ([facility]) Screening for diabetes mellitus Screening for cholesterol level History of bariatric surgery Expected: 10/02/2024 (Approximate), Expires: 10/02/2025 Lipid Panel, Standard Lab Routine Morbid obesity ([facility]) Screening for diabetes mellitus Screening for cholesterol level History of bariatric surgery Expected: 10/02/2024 (Approximate), Expires: 10/02/2025 TSH W/Reflex to FT4 Lab Routine Morbid obesity ([facility]) Screening for diabetes mellitus Screening for cholesterol level History of bariatric surgery Expected: 10/02/2024 (Approximate), Expires: 10/02/2025 PTH, Intact Without Calcium Lab Routine Morbid obesity ([facility]) Screening for diabetes mellitus Screening for cholesterol level History of bariatric surgery Expected: 10/02/2024, Expires: 10/02/2025 Vitamin D, 25-Hydroxy, Total, Immunoassay Lab Routine Morbid obesity ([facility]) Screening for diabetes mellitus Screening for cholesterol level History of bariatric surgery Expected: 10/02/2024 (Approximate), Expires: 10/02/2025 Scheduled Referrals Name Type Priority Associated Diagnoses Orde r Schedule Referral to Nutrition Therapy Outpatient Referral Routine Morbid obesity ([facility]) Expected: 10/02/2024 (Approximate), Expires: 10/02/2025 documented as of this encounter Visit Diagnoses Diagnosis Morbid obesity ([facility])- Primary Morbid obesity Screening for diabetes mellitus Screening for cholesterol level History of bariatric surgery Bariatric surgery status documented in this encounter Additional Health Concerns Assessment Noted Time PHQ-9 Depression Total Score: 6 11/22/19 24 11:13 AM EDT documented as of this encounter Care Teams Hide And Skin Processing Worker Relationship Specialty Start Date End Date Name, MD Win [address] [place] [address] PCP - General Family Medicine 02/22/17 documented as of this encounter
--- OUTSIDE RECORDS SUMMARY | 2024-10-04 09:10 | XMS_ITS | Encounter Summary ---
Author Organization [employer] Address [address] [place] [address] Care Team Providers Care Commercial Real Estate Paralegal Name Role Phone Name, Win MOORE Primary Care Provider [phone] Encounter Details Date Type Department Care Team (Latest Contact Info) Description 09/25/2024 Travel Social History Tobacco Use Types Packs/Day Years Used Date Smoking Tobacco: Never Smokeless Tobacco: Never Alcohol Use Standard Drinks/Week Comments Yes 0 [...] on file documented as of this encounter Visit Diagnoses Not on filedocumented in this encounter Additional Health Concerns Assessment Noted Time PHQ-9 Depression Total Score: 6 11/22/19 24 11:13 AM EDT documented as of this encounter Care Teams Commercial Real Estate Paralegal Relationship Specialty Start Date End Date Name, MD Win [address] [place] [address] PCP - General Family Medicine 02/22/17 documented as of this encounter
--- OUTSIDE RECORDS SUMMARY | 2024-10-04 09:10 | XMS_ITS | Encounter Summary ---
Author Organization [employer] [facility] Address [address] [place] [address] [address] [place] [address] Care Team Providers Care Certification Engineer Name Role Phone Name, Win MOORE Primary Care Provider [phone] Encounter Details Date Type Department Care Team (Latest Contact Info) Description 05/22/2019 Abstract [facility] CONVERSIONS Dental, Provider, DDS Social History Tobacco Use Types Packs/Day Years [...] on filedocumented in this encounter Care Teams Certification Engineer Relationship Specialty Start Date End Date Name, MD Win [address] [place] [address] PCP - General Family Medicine 02/22/17 documented as of this encounter
--- OUTSIDE RECORDS SUMMARY | 2024-10-04 09:10 | XMS_ITS | Clinical Summary ---
Author Organization [employer] Address [address] [place] [address] 7[address] [place] [address] Care Team Providers Care Activity Aid Name Role Phone Name, Win MOORE Primary Care Provider [phone] Allergies No known active allergies Medications Diclofenac Sodium 1 % gelIndications: Thumb pain, left Apply thin layer by topical route (quantity as directed on package insert) to affected area of pain 3 times daily as needed. 50 g 3 04/01/2024 Active Semaglutide-Teo ght Management (Wegovy) 1.7 MG/0.75ML solution auto-injector Inject 1.7 mg under the skin 1 (one) time per week. Active phentermine 15 MG capsule Take 1 capsule (15 mg) by mouth before breakfast. 30 capsule 10/02/2024 11/02/19 25 Active Active Problems Problem Noted Date Diagnosed Date Adjustment disorder, unspecified 03/31/2024 Problem related to unspecified psychosocial circ umstances 03/31/2024 Benign breast cyst in female 04/26/2023 Bilateral calcific tendinitis of shoulders 04/26 Bilateral hip bursitis 04/26/2023 Hip pain 04/26/2023 S/P laparoscopic sleeve gastrectomy 04/26/2023 Overview (10/02/2024): Laparoscopic sleeve gastrectomy 2018 at [facility] Pre surgery weight was 290 pounds She went down to 168 after surgery Regained weight up to 218 after surgery Lost down to 190 purchasing Wegovy out of pocket Regained up to 238 off the Wegovy History of colonic polyps 04/26/2023 Obstructive sleep apnea syndrome 05/28/2018 Polyp of colon 04/27/2017 Essential hypertension 02/27/2017 Morbid obesity 02/27/2017 Recurrent major depression in partial remission 02/27/2017 Resolved Problems Problem Noted Date Diagnosed Date Resolved Date Person encountering health s ervices to consult on behalf of another person 03/31/202409/05 Obesity (BMI 30-39.9) 04/26/20232023 Screening for malignant neoplasm of colon 04/26/2023 11/22/2023 Intestinal malabsorption fol lowing gastrectomy 04/26/2023 10/02/2024 Skin lesions 04/26/2023 11/22/2023 Preprocedural examination 04/26/2023 Raised TSH level 04/04/2017 11/22/2023 Encounters Date Type Department Care Team Description 10/02/2024 11:30 AM EST Office Visit [facility] [address] [place] [address] [phone] Name, MD Win Morbid obesity (CMS/HCC) (Primary Dx); Screening for diabetes mellitus; Screening for cholesterol level; History of bariatric surgery 09/25/2024 Travel from Last 3 Months Immunizations Name Administration Dates Next Due Influenza Injectable Quadriv alant Preservative Free IIV4 MDCK 08/17/2020 Influenza injectable quadriv alent IIV4 with preservative 05/28/2018 Influenza injectable quadriv alent preservative free 05/22/2022,07/12/2021,06/06/2019 Influenza, IIV3, injectable 08/21/2016 Tdap 08/21/2016 Zoster, Recombinant 05/22/2022,08/28/2021 Social History Tobacco Use Types Packs/Day Years [...] Orientation Straight 07/03/2022 10 :30 AM EDT Last Filed Vital Signs Vital Sign Reading [...] Mass Index 45.12 10/02/2024 11:33 AM EST Plan of Treatment Health Maintenance Due Date Last Done Comments CT Colonography 1966 FIT DNA/Cologuard 1966 FIT 1966 FOBT 1966 Sigmoidoscopy 1966 Hepatitis B Vaccines (1 of 3 - 19+ 3-dose series) 1985 Pneumococcal Vaccine: 50+ Years (1 of 1 - PCV) 2016 HPV/Cotest 10/04/2023 10/04/2018, 10/04/2018 COVID-19 Vaccine ( season) 2024 07/25/2021, 11/13/2020, 10/21/2020 Influenza Vaccine (#1) 2024 2, 07/12/2021, 08/17/2020, Additional history exists Depression Screening 11/21/2024 11/22/2023, 11/22/19 24 SDOH Screening 11/21/2024 11/22/2023 Alcohol/Substance Use Screening 07/03/2025 07/03/2024 Tobacco Screening 10/02/2025 10/02/2024 Mammogram 12/13/2025 12/14/2023, 12/02, 10/13/2022, Additional history exists DTaP/Tdap/Td Vaccines (2 - Td or Tdap) 08/21/2026 08/21/2016 Colonoscopy 06/07/2028 06/07/2023, 04/03, 11/05/2017 Colorectal Cancer Screening 06/07/2028 Cervical Cancer Screening 10/24/2028 Pap Smear 10/24/2028 10/24/2023, 10/04/2018 Lipid Panel 04/05/2029 04/05/2024, 09/03, 11/07/2021, Additional history exists RSV Patients and Patients Aged 60 years or older (1 - 1-dose 75+ series) 2041 Zoster Vaccines Completed 05/22/2022, 08/28/2021 HIV Screening Completed 04/05/2024 Hepatitis C Screening Completed 04/05/2024 HIB Vaccines Aged Out No longer eligi ble based on patient's age to complete this topic HPV Vaccines Aged Out No longer eligi ble based on patient's age to complete this topic Hepatitis A Vaccines Aged Out No long er eligible based on patient's age to complete this topic IPV Vaccines Aged Out No longer eligi ble based on patient's age to complete this topic Meningococcal Vaccine Aged Out No mo deepa eligible based on patient's age to complete this topic RSV under 20 months Aged Out No longe r eligible based on patient's age to complete this topic Rotavirus Vaccines Aged Out No longer eligible based on patient's age to complete this topic Procedures Procedure Name Priority Date/Time Associated Diagnosis Comments HEPATITIS C AB W/REFL TO HCV RNA, QN, PCR Routine 04/05/2024 9:21 AM EDT Need for hepatitis C screening test HIV 1/2 ANTIGEN/ANTIBODY, FOURTH GENERATION W/RFL Routine 04/05/2024 9:21 AM EDT Screening for HIV (human immunodeficiency virus) LIPID PANEL, STANDARD Routine 04/05/2024 9:21 AM EDT Morbid obesity (CMS/HCC) Screening for cholesterol level BI US BREAST LIMITED LEFT Routine 12/14/2023 3:31 PM EDT PAP SMEAR Routine 10/24/2023 10:48 AM EST HM COLONOSCOPY Routine 06/07/2023 PAP/HPV Routine 10/04/2018 from Last 3 Months or Most Recently Relevant to Health Maintenance Results * Hepatitis C Antibody with Reflex to HCV, RNA, Quantitative, Real-Time PCR (04/05/2024 9:21 AM EDT) Hepatitis C Antibody Nonreactive Nonreactive [facility] Comment:Antibodies to HCV no t detected; does not exclude early acuteHCV infection. Blood Venous blood specimen / Unknown 04/05/2024 9:21 AM EDT 04/05/2024 9:21 AM EDT us Win Name LAB BLOOD ORDERABLES Final Resul t [facility] [address] [place] [phone] * HIV-1/2 Antigen and Antibodies, Fourth Generation, with Reflexes (04/05/2024 9:21 AM EDT) HIV AB/AG Nonreactive Nonreactive [facility] Comment:HIV-1 p24 Ag and/or HIV-1/HIV-2 Ab not detected.A test result that is nonreactive does not exclude thepossibility of exposure to or infection with HIV-1 and/orHIV-2. Nonreactive results in this assay for individualswith prior exposure to HIV-1 and/or HIV-2 may be due toantigen and antibody levels that are below the limit ofdetection of this assay.The [employer] HIV Ag/Ab Combo assay result andsupplemental assay results should be interpreted inconjunction with the patient's clinical presentation,history and other laboratory results. If the results areinconsistent with clinical evidence, additional testing issuggested to confirm the result. Blood Venous blood specimen / Unknown 04/05/2024 9:21 AM EDT 04/05/2024 9:21 AM EDT us Win Barlow MD LAB BLOOD ORDERABLES Final Resul t [facility] [address] [place] [phone] * (ABNORMAL) Lipid Panel, Standard (04/05/2024 9:21 AM EDT) Triglycerides 134 <150 mg/dL [facility] Comment:Desirable Triglyceri de: less than 150 mg/dLBorderline High Triglyceride 150-199 mg/dLHigh Triglyceride: 200-499 mg/dLVery High Triglyceride: greater than or equal to 5OO mg/dL Cholesterol 247(H) <200 mg/dL [facility] Comment:Desirable Cholestero l: less than 200 mg/dLBorderline High Cholesterol: 200-239 mg/dLHigh Cholesterol: greater than 239 mg/dL LDL Cholesterol Calculated 168(H) <100 mg/dL [facility] Comment:Desirable LDL: less than 100 mg/dLNear Optimal/Above Optimal LDL: 110- 129 mg/dLBorderline High LDL: 130-159 mg/dLHigh LDL: 160-189 mg/dLVery High LDL: greater than or equal to 190 mg/dL HDL Cholesterol 53 >40 mg/dL [facility] Comment:Desirable HDL: great er than 40 mg/dL Note: This HDL assay may give artificially low results in patients with liver disease. Blood Venous blood specimen / Unknown 04/05/2024 9:21 AM EDT 04/05/2024 9:21 AM EDT us Win Name MD LAB BLOOD ORDERABLES Final Resul t [facility] [address] [place] [phone] * BI US Breast Limited Left (12/14/2023 3:31 PM EDT) Anatomical Region Laterality Modality Breast Left Ultrasound 12/14/2023 3:31 PM EDT Narrative 12/14/2023 3:44 PM EDT ? [facility] [place] ? [address] ?[place] [address] ? Ultrasound Report ? Signed ? Patient: Alfonso Hernandezn ?MR#: [id number] ?? [id number] ? : 1965 ?Acct:[id number] ? Age/Sex: 58 / F ?ADM Date: 12/14/23 ? Loc: HO.MAMMO ? Attending Dr: Win Barlow MD ? Ordering Physician: Adwoa Reilly CNM ?? Date of Service: 12/14/23 ?? Procedure(s): US breast LT limited mamm only ?? Accession Number(s): [id number] ? cc: Adwoa Reilly CNM; Name,Win MOORE ? EXAMINATION: ?? MM DIAGNOSTIC DIGITAL BREAST TOMOSYNTHESIS, BILATERAL ?? US BREAST LIMITED, LEFT ? MAMMOGRAPHY: ?? CLINICAL INFORMATION: ? 58-year-old female complaining of left breast pain and tenderness, ?? episodic, 7:00 position, mid depth. This was marked by the technologist ?? with the aid of the patient. Patient also due for routine bilateral ?? screening. ? COMPARISON: ?? Mammography: 10/13/2022, 09/21/2022, 09/19/2021, 09/07/2020, ?? 04/25/2019, 04/14/2019, 04/10/2018, ultrasound left breast 04/25/2019 ?? (left sebaceous cyst). ? TECHNIQUE: ?? Digital breast tomosynthesis is performed in both the craniocaudal and ?? mediolateral oblique views along with computer-aided detection (CAD). ?? Synthesized 2D images are generated from the tomosynthesis. In ?? addition, a full-field left 3-D mediolateral view was included. This ?? was followed by diagnostic left breast ultrasound. ? FINDINGS: ?? There are scattered areas of fibroglandular density (ACR BI-RADS breast ?? composition Category b). ? There are bilateral skin calcifications again identified without ?? significant change. There are stable small circumscribed nodules in ?? both breasts, findings most likely related to small cysts, lymph nodes, ?? or fibroadenomas. These have been unchanged since 2019. Parenchymal ?? pattern is stable from prior exams. No suspicious masses, suspicious ?? grouped calcifications, or areas of architectural distortion in either ?? breast. ? No skin or axillary abnormalities. ? There is no mammographic abnormality in the region of pain marked 7:00 ?? axis left breast. ? ULTRASOUND: ?? CLINICAL INFORMATION: ?? Left breast pain and tenderness 7:00 axis. ? COMPARISON: ?? Correlation made with prior 04/25/2019. ? TECHNIQUE: ?? Targeted sonographic evaluation was performed using a high frequency ?? linear transducer. Attention was given to the left breast lower inner ?? quadrant to include the area of tenderness and pain. Selected archived ?? documentation. ? FINDINGS: ? LEFT BREAST: There is a mixture of fatty and fibroglandular tissue. ??No ?? suspicious mass is seen. ??There is no pathologic acoustic shadowing. ?? There is no cystic abnormality. No sonographic correlate to the region ?? of left breast tenderness and pain. ? US/US breast LT limited mamm only ?? IMPRESSION: ?? -There are no findings suspicious for malignancy in either breast. ?? There have been no significant changes from prior studies. ? -No mammographic or sonographic abnormality in the 7:00 region left ?? breast to explain breast pain. Recommend clinical management and ?? follow-up. ? -Stable benign findings in both breasts. ? OVERALL ASSESSMENT: ?? Mammography: BI-RADS 2 - Benign Findings ?? Ultrasound: BI-RADS 2 - Benign Findings ? RECOMMENDATION: ?? 1. Patient should be managed based on the clinical impression. ?2. ?? Otherwise, routine annual screening mammography. ? This patient's information was entered into a reminder system with a ?? target due date for their next mammogram. ? Dictated By: ?Nahun Negrete MD ? Signed By: ?<Electronically signed by Nahun Negrete MD in OV> ?/08/26 1540 ? DD/ 1531 ? TD/TT: ? Fishing Vessel Mate: ? Procedure Note Donsarater, Image - 12/14/2023 [place] [facility] [address] [place] [address] Ultrasound Report Signed Patient: Alfonso HernandeznMR#: [id number] : 1965Acct:[id number] Age/Sex: 58 / FADM Date: 12/14/23 Loc: HO.MAMMO Attending Dr: Win Barlow MD Ordering Physician: Adwoa Reilly CNM Date of Service: 12/14/23 Procedure(s): US breast LT limited mamm only Accession Number(s): [id number] cc: Adwoa Reilly CNM; Name,Win MOORE EXAMINATION: MM DIAGNOSTIC DIGITAL BREAST TOMOSYNTHESIS, BILATERAL US BREAST LIMITED, LEFT MAMMOGRAPHY: CLINICAL INFORMATION: 58-year-old female complaining of left breast pain and tenderness, episodic, 7:00 position, mid depth. This was marked by the technologist with the aid of the patient. Patient also due for routine bilateral screening. COMPARISON: Mammography: 10/13/2022, 09/21/2022, 09/19/2021, 09/07/2020, 04/25/2019, 04/14/2019, 04/10/2018, ultrasound left breast 04/25/2019 (left sebaceous cyst). TECHNIQUE: Digital breast tomosynthesis is performed in both the craniocaudal and mediolateral oblique views along with computer-aided detection (CAD). Synthesized 2D images are generated from the tomosynthesis. In addition, a full-field left 3-D mediolateral view was included. This was followed by diagnostic left breast ultrasound. FINDINGS: There are scattered areas of fibroglandular density (ACR BI-RADS breast composition Category b). There are bilateral skin calcifications again identified without significant change. There are stable small circumscribed nodules in both breasts, findings most likely related to small cysts, lymph nodes, or fibroadenomas. These have been unchanged since 2019. Parenchymal pattern is stable from prior exams. No suspicious masses, suspicious grouped calcifications, or areas of architectural distortion in either breast. No skin or axillary abnormalities. There is no mammographic abnormality in the region of pain marked 7:00 axis left breast. ULTRASOUND: CLINICAL INFORMATION: Left breast pain and tenderness 7:00 axis. COMPARISON: Correlation made with prior 04/25/2019. TECHNIQUE: Targeted sonographic evaluation was performed using a high frequency linear transducer. Attention was given to the left breast lower inner quadrant to include the area of tenderness and pain. Selected archived documentation. FINDINGS: LEFT BREAST: There is a mixture of fatty and fibroglandular tissue. No suspicious mass is seen. There is no pathologic acoustic shadowing. There is no cystic abnormality. No sonographic correlate to the region of left breast tenderness and pain. US/US breast LT limited mamm only IMPRESSION: -There are no findings suspicious for malignancy in either breast. There have been no significant changes from prior studies. -No mammographic or sonographic abnormality in the 7:00 region left breast to explain breast pain. Recommend clinical management and follow-up. -Stable benign findings in both breasts. OVERALL ASSESSMENT: Mammography: BI-RADS 2 - Benign Findings Ultrasound: BI-RADS 2 - Benign Findings RECOMMENDATION: 1. Patient should be managed based on the clinical impression. 2. Otherwise, routine annual screening mammography. This patient's information was entered into a reminder system with a target due date for their next mammogram. Dictated By: Nahun Negrete MD Signed By: <Electronically signed by Nahun Negrete MD in OV> 12/14/23 1540 DD/ 1531 TD/TT: Fishing Vessel Mate: us [facility] External Provider IMG US PROCEDURES Final Result * Pap Smear (10/24/2023 10:48 AM EST) 10/24/2023 10:4 8 AM EST 10/26/2023 10:00 AM EST [facility] - 11/07/2023 3:50 PM EST ----- ------- Name: Sheila Hernandez ? Age/Sex: 57/F ? : 1965 Unit#: [id number] ?? Attend Dr: Adwoa Reilly CNM ?Re10/24/23 ?Status: DEP REF ? Location: HO.LNP ?Disch: ? ----- ------- SPEC : [id number] ? RECD: 10/26/23-1000 ? STATUS: ??SOUT ? REQ NUM: [id number] ? ARTIE: 02/ ? SUBM DR: Adwoa Reilly CNM ? ENTERED: ??10/26/23 ?SP TYPE: Pap Smr ?OTHR DR: Win Barlow MD ? ORDERED: ??Pap Smear ? Interpretation ?? Satisfactory for evaluation. ?? Negative for intraepithelial lesion or malignancy. ?HPV mRNA E6/E7: ?NOT DETECTED ? This assay detects E6/E7 viral messenger RNA (mRNA) from 14 high-risk HPV types (16, 18, ?? 31, 33, 35, 39, 45, 51, 52, 56, 58, 59, 66, 68) ?? HPV testing performed by [facility], [place], [place]. ??See reference laboratory ?? portion of the EMR for entire report. ?Clinical Information LMP: Menopausal Previous PAP test: 2019, WNL ? Material Received ?? ThinPrep-Cervical Copies To: ?? Adwoa Reilly CNM ?? [address] [place] [address] [address] ?? [place] [address] ?? [phone] ?? Name,Wni MOORE ?? [address] [facility] ?? [place] [address] ?? [phone] ----- ------- Signed (signature on file) MAINE Adams (ASCP) 11/07/23 1549 ? ----- ------- ? END OF REPORT ? Generic External Data Provider LAB CYTOLOGY ORDE RABLES Final Result [facility] [address] [place] [address] [phone] * (ABNORMAL) Colonoscopy (06/07/2023) Colonoscopy Abnormal(A ) Normal Winmai Barlow MD HEALTH MAINTENANCE Final Result * Pap Smear (10/04/2018) Pap Negative for intraephithelial lesion or malignancy Negative for intraephithelial lesion or malignancy, Other HPV Undetected 10/04/2018 Historical Provider HEALTH MAINTENANCE Final Result from Last 3 Months or Most Recently Relevant to Health Maintenance Insurance [facility] C3 Care Teams Activity Aid Relationship Specialty Start Date End Date Name, MD Win [address] [place] [phone] PCP - General Family Medicine 02/22/17
--- OUTSIDE RECORDS SUMMARY | 2024-10-04 09:10 | XMS_ITS | Encounter Summary ---
Author Organization [email or web address] [facility] Address [address] [place] [address] 7 [place] [address] Care Team Providers Care Investment Accounting Clerk Name Role Phone Name, Win MOORE Primary Care Provider [phone] Encounter Details Date Type Department Care Team (Latest Contact Info) Description 06/04/2020 Abstract [facility] CONVERSIONS Dental, Provider, DDS Social History Tobacco [...] on filedocumented in this encounter Care Teams Investment Accounting Clerk Relationship Specialty Start Date End Date Name, MD Win [address] [place] [address] PCP - General Family Medicine 02/22/17 documented as of this encounter
[2024-10-04 09:27] LABS: MANUAL DIFF FLAG NO
[2024-10-04 10:35] LABS: Basophils Percent Auto 0.7 % (0-2); Eosinophils Absolute Auto 0.1 X10*3/uL (0.0-0.4); Eosinophils Percent Auto 1.2 % (0-4); Hemoglobin 13.5 g/dl (12.0-16.0); Imm Gran Abs Auto 0.02 X10*3/uL (0.00-0.03); Imm Gran Pct Auto 0.3 % (0.0-0.4); Lymphocytes Percent Auto 35.7 % (20-40); Mean Corpuscular HGB Conc 33.8 g/dl (31.0-35.0); Mean Corpuscular Hemoglobin 28.4 pg (27.0-33.0); Mean Platelet Volume 9.9 fL (9.4-12.3); Monocytes Absolute Auto 0.3 X10*3/uL (0.1-1.2); Monocytes Percent Auto 5.6 % (2-11); Neutrophils Absolute Auto 3.2 x10*3/uL (2.0-8.3); Neutrophils Percent Auto 56.5 % (45-73); Platelet Count 246 X10*3/uL (160-400); Red Blood Count 4.76 X10*6/uL (4.20-5.50); Red Cell Distribution Width 14.4 % (11.0-16.0); White Blood Count 5.7 X10*3/uL (4.8-10.8)
[2024-10-04 10:45] LABS: Estimated Average Glucose 108 mg/dL; Hemoglobin A1C 127.2111 umol/L; Hemoglobin A1c % 5.4 % (<6.0); Total Hemoglobin (HGBA1C) 3562.6617 umol/L
[2024-10-04 11:05] LABS: Parathyroid Hormone Intact 158.1 pg/mL (8.7-77.1)
[2024-10-04 11:06] LABS: Alanine Aminotransferase 16 U/L (0-31); Albumin Level 3.8 g/dL (3.5-5.0); Alkaline Phosphatase 104 U/L (39-117); Anion Gap 12 (12-20); Aspartate Amino Transferase 20 U/L (5-31); Bilirubin Total 0.5 mg/dL (0.0-1.0); Blood Urea Nitrogen 14 mg/dL (9-16); Calcium 9.2 mg/dL (8.4-10.2); Carbon Dioxide 24 mmol/L (22-29); Chloride 108 mmol/L (96-108); Cholesterol 230 mg/dL (<200); Estimated Glomerular Filt Rate > 60; Glucose Random 90 mg/dL (60-115); HDL Cholesterol 48 mg/dL (>40); Iron 109 mcg/dL (30-160); LDL Cholesterol Calculated 158 mg/dL (<100); Percent Iron Saturation 35 % (15-50); Potassium 4.4 mmol/L (3.3-5.1); Sodium 140 mmol/L (135-145); Total Iron Binding Capacity 311 mcg/dL (228-428); Total Protein 7.2 g/dL (6.5-8.0); Triglycerides 120 mg/dL (<150); Unsaturated Iron Binding 202 ug/dL
[2024-10-04 11:21] LABS: TSH reflex Free T4 2.01 uIU/mL (0.32-4.0); Vitamin D 25-OH Total 23.9 ng/mL (>30)
== END 2024-10-04 09:08 | disposition home or self-care (01) ==
LOC: HO.LAB 09:07
PROVIDERS: PCP Internal Medicine Geriatric Medicine; Visit Provider Internal Medicine Geriatric Medicine
DX: E66.01 Morbid (severe) obesity due to excess calories (principal); Z13.1 Encounter for screening for diabetes mellitus; Z13.220 Encounter for screening for lipoid disorders; Z98.84 Bariatric surgery status
CPT/HCPCS: 36415; 80053; 80061; 82306; 83036; 83540; 83970; 84443; 85025

== ENCOUNTER 2024-11-10 12:05 | Outpatient (REF) | payer MEDICAID, SELFPAY ==
--- NOTE | ~2024-11-10 | XR_ITS ---
EXAMINATION: XR CHEST 2 VIEWS HISTORY: persistent cough COMPARISON: Comparison is made with the prior examination dated 10/14/2018. FINDINGS: PA and lateral views of the chest are submitted. The lungs are expanded and clear. There is no pleural effusion, pneumothorax, or pulmonary vascular congestion. The heart is normal in size. The aorta is tortuous. There is degenerative disc disease of the spine. There are surgical clips at the GE junction. XR/XR chest 2V IMPRESSION: No acute cardiopulmonary abnormality. Electronically signed by: Manfred Garcia MD 11/10/2024 12:40 PM EDT
--- OUTSIDE RECORDS SUMMARY | 2024-11-10 13:45 | XMS_ITS | Encounter Summary ---
Author Organization [email or web address] [facility] Address [address] [place] [address] 7 [place] [address] Care Team Providers Care Enterprise Resource Planner Name Role Phone Name, Win MOORE Primary Care Provider [phone] Encounter Details Date Type Department Care Team (Latest Contact Info) Description 05/22/2019 Abstract [facility] CONVERSIONS Dental, Provider, DDS Social [...] as of this encounter Plan of Treatment Upcoming Encounters Date Type Department Care Team ( st Contact Info) Description 11/25/2024 10:30 AM EDT Nutrition [facility] DIABETES/NUTRITION [address] [place] [address] [place] [address] 01/06/2025 11:30 AM EDT Office Visit [facility] MEDICINE [address] [place], [place] [phone] Win Barlow MD [address] [place] [address] documented as of this encounter Visit Diagnoses Not on filedocumented in this encounter Care Teams Enterprise Resource Planner Relationship Specialty Start Date End Date NameWin MD [address] [place] [phone] PCP - General Family Medicine 02/22/17 documented as of this encounter
--- OUTSIDE RECORDS SUMMARY | 2024-11-10 13:45 | XMS_ITS | Encounter Summary ---
Author Organization [employer] Address [address] [place] [address] Care Team Providers Care Transplanter Orchid Name Role Phone Name, Win MOORE Primary Care Provider [phone] Encounter Details Date Type Department Care Team (Latest Contact Info) Description 11/10/2024 Travel Social History Tobacco Use Types Packs/Day [...] Upcoming Encounters Date Type Department Care Team (Late st Contact Info) Description 11/25/2024 10:30 AM EDT Nutrition [facility] DIABETES/NUTRITION [address] [place] [phone] Ghislaine Reyes, RD [address] [place] [address] 01/06/2025 11:30 AM EDT Office Visit [facility] MEDICINE [address] [place] [address] Name, MD Win [address] [place] [phone] documented as of this encounter Visit Diagnoses Not on filedocumented in this encounter Additional Health Concerns Assessment Noted Time PHQ-9 Depression Total Score: 6 11/22/19 24 11:13 AM EDT documented as of this encounter Care Teams Transplanter Orchid Relationship Specialty Start Date End Date NameWin MD [address] [place] [phone] PCP - General Family Medicine 02/22/17 documented as of this encounter
--- OUTSIDE RECORDS SUMMARY | 2024-11-10 13:45 | XMS_ITS | Encounter Summary ---
Author Organization [employer] [facility] Address [address] [place] [address] [address] [place] [address] Care Team Providers Care Wood Form Builder Name Role Phone Name, Win MOORE Primary Care Provider Encounter Details Date Type Department Care Team (Late st Contact Info) Description 02/12/2023 Abstract [facility] MEDICINE [address] [place] [phone] NameWin MD [address] [place] [phone] Social History Tobacco Use Types Packs/Day Years [...] Info) Description 11/25/2024 10:30 AM EDT Nutrition [facility] DIABETES/NUTRITION [address] [place] [phone] [place] [phone] 01/06/2025 11:30 AM EDT Office Visit [facility] MEDICINE [address] [place] [address] [phone] Win Barlow MD [address] [place] [address] [phone] documented as of this encounter Procedures Procedure Name Priority Date/Time Associated Diagnosis Comments PAP/HPV Routine 10/04/2018 COLONOSCOPY Routine 11/05/2017 2:53 PM EST documented in this encounter Results * Pap Smear (10/04/2018) Pap Negative for intraephithelial lesion or malignancy Negative for intraephithelial lesion or malignancy, Other HPV Undetected 10/04/2018 us Historical Provider HEALTH MAINTENANCE Final Result * Colonoscopy (11/05/2017 2:53 PM EST) Colonoscopy Normal Normal Narrative Adrianna Naranjo - 11/05/2017 2:53 PM EST Recommended 5 year follow up us Historical Provider HEALTH MAINTENANCE Final Result documented in this encounter Visit Diagnoses Not on filedocumented in this encounter Care Teams Wood Form Builder Relationship Specialty Start Date End Date Name, MD Win [address] [place] [address] PCP - General Family Medicine 02/22/17 documented as of this encounter
--- OUTSIDE RECORDS SUMMARY | 2024-11-10 13:45 | XMS_ITS | Encounter Summary ---
Author Organization [employer] Address [address] [place] [address] Care Team Providers Care Digester Hand Name Role Phone Name, Win MOORE Primary Care Provider [phone] Encounter Details Date Type Department Care Team ([facility] st Contact Info) Description 11/10/2024 11:15 AM EDT Office Visit [facility] MEDICINE [address] [place], [place] [phone] Loren Sears MD [address] [place], [place] [phone] Viral syndrome (Primary Dx); Persistent cough; Bronchitis Social History Tobacco Use Types Packs/Day Years [...] Sign Reading Time Taken Comments Blood Pressure 157/81 11/10/2024 11:29 AM EDT Pulse 101 11/10/2024 11:29 AM EDT Temperature 36.1 ??C (96.9 ??F) 11/10/2024 11:29 AM E DT Respiratory Rate 20 11/10/2024 11:29 AM EDT Oxygen Saturation - - Inhaled Oxygen Concentration - - Weight 104 kg (228 lb 6 oz) 11/10/2024 11:29 AM EDT Height 157.5 cm (5' 2 ) 11/10/2024 11:29 AM EDT Body Mass Index 41.77 11/10/2024 11:29 AM EDT documented in this encounter Plan of Treatment Upcoming Encounters Date Type Department Care Team (Late st Contact Info) Description 11/25/2024 10:30 AM EDT Nutrition [facility] DIABETES/NUTRITION [address] [place] [address] Ghislaine Reyes, IRAIDA [address] [place] [address] 01/06/2025 11:30 AM EDT Office Visit [facility] MEDICINE [address] [place], [place] [phone] Name, MD Win [address] [place] [address] documented as of this encounter Procedures Procedure Name Priority Date/Time Associated Diagnosis Comments XR CHEST 2 VIEWS Routine 11/10/2024 12:0 6 PM EDT Persistent cough Bronchitis POCT INFLUENZA B (ID NOW RAPID MOLECULAR) Routine 11/10/2024 11:45 AM EDT Viral syndrome POCT INFLUENZA A (ID NOW RAPID MOLECULAR) Routine 11/10/2024 11:45 AM EDT Viral syndrome POCT COVID-19 AG JARAMILLO ID NOW Routine 11/10/2024 11:45 AM EDT Viral syndrome documented in this encounter Results * XR Chest 2 Views (11/10/2024 12:06 PM EDT) Anatomical Region Laterality Modality Chest Radiographic Juliann ging 11/10/2024 12:0 6 PM EDT Narrative 11/10/2024 12:44 PM EDT ?[facility] ?[address] ?[place] [address] ?XRay Report ? Signed ? Patient: Alfonso Hernandezn ?MR#: [id number] ?? [id number] ? : 1965 ?Acct:[id number] ? Age/Sex: 58 / F ?ADM Date: 11/10/24 ? Loc: HO.HHCX ? Attending Dr: Loren Shell MD ? Ordering Physician: Loren Sears MD ?? Date of Service: 11/10/24 ?? Procedure(s): XR chest 2V ?? Accession Number(s): [id number] ? cc: Loren Sears MD ? EXAMINATION: ??XR CHEST 2 VIEWS ? HISTORY: persistent cough ? COMPARISON: Comparison is made with the prior examination dated ?? 10/14/2018. ? FINDINGS: ??PA and lateral views of the chest are submitted. The lungs ?? are expanded and clear. ??There is no pleural effusion, pneumothorax, or ?? pulmonary vascular congestion. ??The heart is normal in size. The aorta ?? is tortuous. ??There is degenerative disc disease of the spine. There ?? are surgical clips at the GE junction. ? XR/XR chest 2V ?? IMPRESSION: ?? No acute cardiopulmonary abnormality. ? Electronically signed by: ??Manfred Garcia MD ??11/10/2024 12:40 PM EDT ?? RP ? Dictated By: ?Manfred Garcia MD ? Signed By: ?<Electronically signed by Manfred Garcia MD in OV> ?11/10/24 1240 ? DD/ 1206 ? TD/TT: 11/10/24 1219 ? Marble Cutter: ? Procedure Note Donasrater, Image - 11/10/2024 [facility] [address] [place] [address] XRay Report Signed Patient: Alfonso HernandeznMR#: [id number] : 1965Acct:[id number] Age/Sex: 58 / FADM Date: 11/10/24 Loc: HO.HHCX Attending Dr: Loren Shell MD Ordering Physician: Lroen Sears MD Date of Service: 11/10/24 Procedure(s): XR chest 2V Accession Number(s): [id number] cc: Loren Sears MD EXAMINATION: XR CHEST 2 VIEWS HISTORY: persistent cough COMPARISON: Comparison is made with the prior examination dated 10/14/2018. FINDINGS: PA and lateral views of the chest are submitted. The lungs are expanded and clear. There is no pleural effusion, pneumothorax, or pulmonary vascular congestion. The heart is normal in size. The aorta is tortuous. There is degenerative disc disease of the spine. There are surgical clips at the GE junction. XR/XR chest 2V IMPRESSION: No acute cardiopulmonary abnormality. Electronically signed by: Manfred Garcia MD 11/10/2024 12:40 PM EDT Dictated By: Manfred Garcia MD Signed By: <Electronically signed by Manfred Garcia MD in OV> 11/10/24 1240 DD/ 1206 TD/TT: 11/10/24 1219 Marble Cutter: us Loren Shell MD IMG XR PROCEDURES Fin al Result * POCT Rapid Covid-19 JARAMILLO ID NOW (11/10/2024 11:45 AM EDT) [facility] Coronavirus Antigen PCR Negative Negative, Indeterminate, None Detected, Invalid, Specimen unsatisfactory for evaluation, Weakly Positive Swab 11/10/2024 11:4 5 AM EDT us Loren Shell MD POINT OF CARE TEST EN TER/EDIT ORDERABLES Final Result * POCT Rapid Influenza B JARAMILLO ID NOW (11/10/2024 11:45 AM EDT) [facility] Influenza B Negative Negative, Indeterminate [facility] Swab 11/10/2024 11:4 5 AM EDT us Loren Shell MD POINT OF CARE TEST EN TER/EDIT ORDERABLES Final Result Performing Organization Address [facility] de Phone Number [facility] [address] [place] [phone] * POCT Rapid Influenza A JARAMILLO ID NOW (11/10/2024 11:45 AM EDT) [facility] Influenza A Negative Negative, Indeterminate [facility] Swab 11/10/2024 11:4 5 AM EDT us Loren Shell MD POINT OF CARE TEST EN TER/EDIT ORDERABLES Final Result Performing Organization Address [facility] de Phone Number [facility] [address] [place] [phone] documented in this encounter Visit Diagnoses Diagnosis Viral syndrome- Primary Unspecified viral infection, in conditions classified elsewhere and of unspecified site Persistent cough Bronchitis Bronchitis, not specified as acute or chronic documented in this encounter Additional Health Concerns Assessment Noted Time PHQ-9 Depression Total Score: 6 11/22/19 24 11:13 AM EDT documented as of this encounter Care Teams Digester Hand Relationship Specialty Start Date End Date Name, MD Win [address] [place] [phone] PCP - General Family Medicine 02/22/17 documented as of this encounter
--- OUTSIDE RECORDS SUMMARY | 2024-11-10 13:45 | XMS_ITS | Encounter Summary ---
Author Organization [facility] Address [address] [place] [address] [address] [place] [address] Care Team Providers Care Slat Basket Maker Helper Name Role Phone Name, Win MOORE Primary Care Provider Encounter Details Date Type Department Care Team (Latest Contact Info) Description 06/04/2020 Abstract [facility] CONVERSIONS Dental, Provider, DDS Social History Tobacco [...] Info) Description 11/25/2024 10:30 AM EDT Nutrition [facility] DIABETES/NUTRITION [address] [place] [phone] [place] [address] 01/06/2025 11:30 AM EDT Office Visit [facility] MEDICINE [address] [place], [place] [phone] Win Barlow MD [address] [place] [address] documented as of this encounter Visit Diagnoses Not on filedocumented in this encounter Care Teams Slat Basket Maker Helper Relationship Specialty Start Date End Date NameWin MD [address] [place] [phone] PCP - General Family Medicine 02/22/17 documented as of this encounter
--- OUTSIDE RECORDS SUMMARY | 2024-11-10 13:45 | XMS_ITS ---
Author Organization [facility] Address [address] [place] [address] Care Team Providers Care Holistic Nutritionist Name Role Phone Name Win MOORE Primary Care Provider Manfred Huff [phone] REASON FOR VISIT colon recall date? Encounters Encounter Location Date Provider Diagnosis [facility] [address] [place] [phone] 06/11/2023 Manfred Smith Plan Of Treatment No Information Progress Notes * ADARSH MONTIELOB:[birth year] (57 yo F)Acc No.[id number]:06/11/2023 Patient:?FIORELLA MONTIEL :1965???Age:57 Y???Sex:Female Address:[address] [place] [address], [phone] * true * Date:? Generated for Sabine mason/[place]/eTransmitting on:?11/10/2024 09:12 AM EDT
--- OUTSIDE RECORDS SUMMARY | 2024-11-10 13:45 | XMS_ITS | Clinical Summary ---
Author Organization [employer] Address [address] [place] [address] 7[address] [place] [address] Care Team Providers Care Traffic Counter Name Role Phone Name, Win MOORE Primary Care Provider [phone] Allergies No known active allergies Medications Diclofenac Sodium 1 % gelIndications:T humb pain, left Apply thin layer by topical route (quantity as directed on package insert) to affected area of pain 3 times daily as needed. 50 g 3 4 Active Semaglutide-Weig ht Management (Wegovy) 1.7 MG/0.75ML solution auto-injector Inject 1.7 mg under the skin 1 (one) time per week. Active phentermine 15 MG capsule Take 1 capsule (15 mg) by mouth before breakfast. 30 capsule 5 Active Cholecalciferol 25 MCG (1000 UT) tablet dispersible Take 25 mcg by mouth Once per day. 30 tablet 11 5 10/06/19 26 Active azithromycin (Zithromax) 250 MG tabletIndication s:Bronchitis Take 2 tabs PO daily x 1d then 1 tab PO daily on D2 to D5 6 tablet 5 Active albuterol 108 (90 Base) MCG/ACT inhalerIndicatio ns:Persistent cough,Bronchitis Inhale 2 puffs every 6 (six) hours if needed for wheezing. 18 g 5 11/11/19 26 Active ondansetron (Zofran) 4 MG tabletIndication s:Viral syndrome Take 2 tablets (8 mg) by mouth every 8 (eight) hours if needed for nausea or vomiting for up to 7 days. 20 tablet 5 11/18/19 25 Active famotidine (Pepcid) 20 MG tabletIndication s:Viral syndrome Take 1 tablet (20 mg) by mouth 2 times daily. 30 tablet 11/11/19 26 Active Active Problems Problem Noted Date Diagnosed Date Viral syndrome 11/10/2024 Persistent cough 11/10/2024 Bronchitis 11/10/2024 Adjustment disorder, unspecified 03/31/2024 Problem related to unspecified psychosocial circ umstances 03/31/2024 Benign breast cyst in female 04/26/2023 Bilateral calcific tendinitis of shoulders 04/26 Bilateral hip bursitis 04/26/2023 Hip pain 04/26/2023 S/P laparoscopic sleeve gastrectomy 04/26/2023 Overview (10/02/2024): Laparoscopic sleeve gastrectomy 2018 at [facility] Pre surgery weight was 290 pounds She [...] Encounters Date Type Department Care Team Description 11/10/2024 11:15 AM EDT Office Visit [facility] [address] [place] [phone] Loren Sears MD Viral syndrome (Primary Dx); Persistent cough; Bronchitis 11/10/2024 Travel 11/10/2024 Telephone [facility] [place] [place] [address] Win Barlow MD Nurse Triage 10/06/2024 Telephone [facility] [place] [address] Maira Tejada, RN Results 10/06/2024 Orders Only [facility] [place] [address] NameWin MD Vitamin D deficiency (Primary Dx) 10/02/2024 11:30 AM EST Office Visit [facility] [place] [address] NameWin MD Morbid obesity (CMS/HCC) (Primary Dx); Screening for [...] 20 11/10/2024 11:29 AM EDT Oxygen Saturation 95% 10/02/2024 11:33 AM EST Inhaled Oxygen Concentration - - Weight 104 kg (228 lb 6 oz) 11/10/2024 11:29 AM EDT Height 157.5 cm (5' 2 ) 11/10/2024 11:29 AM EDT Body Mass Index 41.77 11/10/2024 11:29 AM EDT Plan of Treatment Upcoming Encounters Date Type Department Care Team (Late st Contact Info) Description 11/25/2024 10:30 AM EDT Nutrition [facility] [address] [place] [phone] [place] [address] 01/06/2025 11:30 AM EDT Office Visit [facility] [address] [place] [phone] Name, MD Win [address] [place] [address] Health Maintenance Due Date Last Done Comments CT Colonography 1965 FIT DNA/Cologuard 1965 FIT 1965 FOBT 1965 Sigmoidoscopy 1965 Hepatitis B Vaccines (1 of 3 - 19+ 3-dose series) 1985 Pneumococcal Vaccine: 50+ Years (1 of 1 - PCV) 2016 HPV/Cotest 10/04/2023 10/04/2018, 10/04/2018 COVID-19 Vaccine ( season) 2024 07/25/2021, 11/13/2020, 10/21/2020 Influenza Vaccine (#1) 2024 , 07/12/2021, 08/17/2020, Additional history exists Depression Screening 11/21/2024 11/22/2023, 11/22/19 24 SDOH Screening 11/21/2024 11/22/2023 Alcohol/Substance Use Screening 07/03/2025 07/03/2024 Tobacco Screening 11/10/2025 11/10/2024 Mammogram 12/13/2025 12/14/2023, 12/02, 10/13/2022, Additional history exists DTaP/Tdap/Td Vaccines (2 - Td or Tdap) 08/21/2026 08/21/2016 Colonoscopy 06/07/2028 06/07/2023, 081 12/2022, 11/05/2017 Colorectal Cancer Screening 06/07/2028 Cervical Cancer Screening 10/24/2028 Pap Smear 10/24/2028 10/24/2023, 10/04/2018 Lipid Panel 10/04/2029 10/04/2024, 08/0 11/2023, 09/21/2022, Additional history exists RSV Patients and Patients [...] 6 PM EDT Persistent cough Bronchitis POCT COVID-19 AG JARAMILLO ID NOW Routine 11/10/2024 11:45 AM EDT Viral syndrome POCT INFLUENZA B (ID NOW RAPID MOLECULAR) Routine 11/10/2024 11:45 AM EDT Viral syndrome POCT INFLUENZA A (ID NOW RAPID MOLECULAR) Routine 11/10/2024 11:45 AM EDT Viral syndrome VITAMIN D,25-OH,TOTAL,IA Routine 10/04/2024 9:24 AM EST Morbid obesity ([facility]) Screening for diabetes mellitus Screening for cholesterol level History of bariatric surgery PTH, INTACT WITHOUT CALCIUM Routine 10/04/2024 9:24 AM EST Morbid obesity ([facility]/HCC) Screening for diabetes mellitus Screening for cholesterol level History of bariatric surgery TSH W/REFLEX TO FT4 Routine 10/04/2024 9 :24 AM EST Morbid obesity (CMS/HCC) Screening for diabetes mellitus Screening for cholesterol level History of bariatric surgery LIPID PANEL, STANDARD Routine 10/04/2024 9:24 AM EST Morbid obesity ([facility]) Screening for diabetes mellitus Screening for cholesterol level History of bariatric surgery HEMOGLOBIN A1C Routine 10/04/2024 9:24 AM EST Morbid obesity ([facility]) Screening for diabetes mellitus Screening for cholesterol level History of bariatric surgery COMPREHENSIVE METABOLIC PANEL Routine 10/04/2024 9:24 AM EST Morbid obesity (CMS/HCC) Screening for diabetes mellitus Screening for cholesterol level History of bariatric surgery IRON AND TOTAL IRON BINDING CAPACITY Routine 10/04/2024 9:24 AM EST Morbid obesity (CMS/HCC) Screening for diabetes mellitus Screening for cholesterol level History of bariatric surgery CBC WITH AUTO DIFFERENTIAL Routine 10/04/2024 9:24 AM EST Morbid obesity (CMS/HCC) Screening for diabetes mellitus Screening for cholesterol level History of bariatric surgery HEPATITIS C AB W/REFL TO HCV RNA, QN, PCR Routine 04/05/2024 9:21 AM EDT Need for hepatitis C screening test HIV 1/2 ANTIGEN/ANTIBODY, FOURTH GENERATION W/RFL Routine 04/05/2024 9:21 AM EDT Screening for HIV (human immunodeficiency virus) BI US BREAST LIMITED LEFT Routine 12/14/2023 3:31 PM EDT PAP SMEAR Routine 10/24/2023 10:48 AM EST HM COLONOSCOPY Routine 06/07/2023 PAP/HPV Routine 10/04/2018 from Last 3 Months or Most Recently Relevant to Health Maintenance Results * XR Chest 2 Views (11/10/2024 12:06 PM EDT) Anatomical Region Laterality Modality Chest Radiographic Juliann ging 11/10/2024 12:0 6 PM EDT Narrative 11/10/2024 12:44 PM EDT ?[facility] ?[address] ?[place] [address] ?XRay Report ? Signed ? Patient: Ty Yan,Sheila ?MR#: [id number] ?? [id number] ? : 1965 ?Acct:[id number] ? Age/Sex: 58 / F ?ADM Date: 03/10/25 ? Loc: HO.HHCX ? Attending Dr: Loren Shell MD ? Ordering Physician: Loren Sears MD ?? Date of Service: 11/10/24 ?? Procedure(s): XR chest 2V ?? Accession Number(s): [id number] ? cc: Loren Sears MD ? EXAMINATION: [...] ??Manfred Garcia MD ??11/10/2024 12:40 PM EDT ? Dictated By: ?Manfred Garcia MD ? Signed By: ?<Electronically signed by Manfred Garcia MD in OV> ?11/10/24 1240 ? DD/ 1206 ? TD/TT: 11/10/24 1219 ? Spot Cleaner: ? Procedure Note Jennifer, Image - 11/10/[address] [address] XRay Report Signed Patient: Alfonso HernandezEdgardo#: [id number] : 1965Acct:[id number] Age/Sex: 58 / FADM Date: 11/10/24 Loc: HO.HHCX Attending Dr: Loren Shell MD Ordering Physician: Loren Sears MD Date of Service: 11/10/24 Procedure(s): XR chest 2V Accession Number(s): [id number] cc: Loren Sears MD EXAMINATION: XR CHEST [...] Manfred Garcia MD 11/10/2024 12:40 PM EDT RP Dictated By: Manfred Garcia MD Signed By: <Electronically signed by Manfred Garcia MD in OV> 11/10/24 1240 DD/ 1206 TD/TT: 11/10/24 1219 Spot Cleaner: Loren Shell MD IMG XR PROCEDURES Fin al Result * POCT Rapid Influenza B JARAMILLO ID NOW (11/10/2024 11:45 AM EDT) Influenza B Negative Negative, Indeterminate [facility] Swab 11/10/2024 11:4 5 AM EDT Loren Shell MD POINT OF CARE TEST EN TER/EDIT ORDERABLES Final Result Performing Organization Address [facility] Co de Phone Number [facility] [address] [place] [phone] * POCT Rapid Influenza A JARAMILLO ID NOW (11/10/2024 11:45 AM EDT) Influenza A Negative Negative, Indeterminate [facility] Swab 11/10/2024 11:4 5 AM EDT Loren Shell MD POINT OF CARE TEST EN TER/EDIT ORDERABLES Final Result Performing Organization Address [facility] Co de Phone Number [facility] [address] [place] [phone] * POCT Rapid Covid-19 JARAMILLO ID NOW (11/10/2024 11:45 AM EDT) Coronavirus Antigen PCR Negative Negative, Indeterminate, None Detected, Invalid, Specimen unsatisfactory for evaluation, Weakly Positive Swab 11/10/2024 11:4 5 AM EDT us Loren Shell MD POINT OF CARE TEST EN TER/EDIT ORDERABLES Final Result * (ABNORMAL) Vitamin D, 25-Hydroxy, Total, Immunoassay (10/04/2024 9:24 AM EST) Vitamin D 25-OH Total 23.9(L) >30 ng/mL [facility] Comment:Health Based Referen ce Values*< 20 ng/mL Ukzmtbehp07-19 ng/mL Insufficient> 30 ng/mL Sufficient*Esa WHEAT. N Engl J Med. 2007;357:266-280Care must be taken in interpreting Vitamin D results fromdifferent laboratories and methodologies. Published datademonstrated that results from patients undergoinghemodialysis may show a negative bias when tested withvarious automated 25-OH vitamin D assays when compared toLC-MS/MS.When testing samples from patients whose predominant form ofVitamin D is Vitamin D2, such as patients receiving VitaminD2 supplementation, results that are subtherapeutic shouldbe confirmed with another method such as LC-MS/MS. Blood Venous blood specimen / Unknown 10/04/2024 9:24 AM EST 10/04/2024 9:24 AM EST us Win Barlow MD LAB BLOOD ORDERABLES Final Resul t [facility] [address] [place] [phone] * TSH W/Reflex to FT4 (10/04/2024 9:24 AM EST) TSH reflex Free T4 2.01 0.32 - 4.0 uIU/mL [facility] Blood Venous blood specimen / Unknown 10/04/2024 9:24 AM EST 10/04/2024 9:24 AM EST us Win Name LAB BLOOD ORDERABLES Final Resul t [facility] [address] [place] [phone] * CBC auto differential (10/04/2024 9:24 AM EST) White Blood Count 5.7 4.8 - 10.8 X10*3/uL [facility] Red Blood Count 4.76 4.20 - 5.50 X10*6/uL [facility] Hemoglobin 13.5 12.0 - 16.0 g/dl [facility] Hematocrit 40.0 37.0 - 47.0 % [facility] Mean Corpuscular Volume 84.0 80.0 - 98.0 fL [facility] Mean Corpuscular Hemoglobin 28.4 27.0 - 33.0 pg [facility] Mean Corpuscular HGB Conc 33.8 31.0 - 35.0 g/dl [facility] Red Cell Distribution Width 14.4 11.0 - 16.0 % [facility] Platelet Count 246 160 - 400 X10*3/uL [facility] Mean Platelet Volume 9.9 9.4 - 12.3 fL [facility] Neutrophils Percent Auto 56.5 45 - 73 % [facility] Imm Gran Pct Auto 0.3 0.0 - 0.4 % [facility] Lymphocytes Percent Auto 35.7 20 - 40 % [facility] Monocytes Percent Auto 5.6 2 - 11 % [facility] Eosinophils Percent Auto 1.2 0 - 4 % [facility] Basophils Percent Auto 0.7 0 - 2 % [facility] NRBC Pct Auto 0.0 0.0 - 0.2 /100WBC [facility] Neutrophils Absolute Auto 3.2 2.0 - 8.3 x10*3/uL [facility] Imm Gran Abs Auto 0.02 0.00 - 0.03 X10*3/uL [facility] Lymphocytes Absolute Auto 2.0 1.2 - 4.9 X10*3/uL [facility] Monocytes Absolute Auto 0.3 0.1 - 1.2 X10*3/uL [facility] Eosinophils Absolute Auto 0.1 0.0 - 0.4 X10*3/uL [facility] Basophils Absolute Auto 0.0 0.0 - 0.2 X10*3/uL [facility] NRBC Abs Auto 0.000 0.0 - 0.012 X10*3/uL [facility] Blood Venous blood specimen / Unknown 10/04/2024 9:24 AM EST 10/04/2024 9:24 AM EST us Win Barlow MD LAB BLOOD ORDERABLES Final Resul t Performing Organization Address [facility]/ZIP Co de Phone Number [facility] [address] [place] [phone] * Iron And Total Iron Binding Capacity (10/04/2024 9:24 AM EST) Iron 109 30 - 160 mcg/dL [facility] Total Iron Binding Capacity 311 228 - 428 mcg/dL [facility] Percent Iron Saturation 35 15 - 50 % [facility] Unsaturated Iron Binding 202 ug/dL [facility] Blood Venous blood specimen / Unknown 10/04/2024 9:24 AM EST 10/04/2024 9:24 AM EST us Win Barlow MD LAB BLOOD ORDERABLES Final Resul t Performing Organization Address City/[facility]/ZIP Co de Phone Number [facility] [address] [place] [phone] * (ABNORMAL) PTH, Intact Without Calcium (10/04/2024 9:24 AM EST) Parathyroid Hormone, Intact 158.1(H) 8.7 - 77.1 pg/mL [facility] Blood Venous blood specimen / Unknown 10/04/2024 9:24 AM EST 10/04/2024 9:24 AM EST us Win Barlow MD LAB BLOOD ORDERABLES Final Resul t Performing Organization Address [facility] de Phone Number [facility] [address] [place] [phone] * Hemoglobin A1c (10/04/2024 9:24 AM EST) Hemoglobin A1c 5.4 <6.0 % [facility] Comment:Hemoglobin A1C Refer ence Range Adults: 4.8 - 6.0 % Non diabetic: < 6.0 % Goal: < 7.0 %Additional Action Suggested: > 8.0 %Note: Hemoglobin A1c results are invalid for patients with abnormal amounts of HbF. Blood transfusions may impact the HbA1c concentration in the patient sample. Estimated Average Glucose 108 mg/dL [facility] Comment:eAG = Estimated ave rage glucose which is %A1C expressed asaverage glucose, using the formula of the W0F-IafpqvvHnrvmyv Glucose study (ADAG), Diabetes Care, Vol.31,#8,2007 Blood Venous blood specimen / Unknown 10/04/2024 9:24 AM EST 10/04/2024 9:24 AM EST us Win Barlow MD LAB BLOOD ORDERABLES Final Resul t Performing Organization Address [facility] Co de Phone Number [facility] [address] [place] [phone] * (ABNORMAL) Lipid Panel, Standard (10/04/2024 9:24 AM EST) Triglycerides 120 <150 mg/dL [facility] Comment:Desirable Triglyceri de: less than 150 mg/dLBorderline High Triglyceride 150-199 mg/dLHigh Triglyceride: 200-499 mg/dLVery High Triglyceride: greater than or equal to 5OO mg/dL Cholesterol 230(H) <200 mg/dL [facility] Comment:Desirable Cholestero l: less than 200 mg/dLBorderline High Cholesterol: 200-239 mg/dLHigh Cholesterol: greater than 239 mg/dL LDL Cholesterol Calculated 158(H) <100 mg/dL [facility] Comment:Desirable LDL: less than 100 mg/dLNear Optimal/Above Optimal LDL: 110- 129 mg/dLBorderline High LDL: 130-159 mg/dLHigh LDL: 160-189 mg/dLVery High LDL: greater than or equal to 190 mg/dL HDL Cholesterol 48 >40 mg/dL [facility] Comment:Desirable HDL: great er than 40 mg/dL Note: This HDL assay may give artificially low results in patients with liver disease. Blood Venous blood specimen / Unknown 10/04/2024 9:24 AM EST 10/04/2024 9:24 AM EST us Win Barlow MD LAB BLOOD ORDERABLES Final Resul t [facility] [address] [place] [phone] * Comprehensive Metabolic Panel (10/04/2024 9:24 AM EST) Sodium 140 135 - 145 mmol/L [facility] Potassium 4.4 3.3 - 5.1 mmol/L [facility] Chloride 108 96 - 108 mmol/L [facility] Carbon Dioxide 24 22 - 29 mmol/L [facility] Anion Gap 12 12 - 20 [facility] Urea Nitrogen (BUN) 14 9 - 16 mg/dL [facility] Creatinine, Serum 0.57 0.5 - 1.4 mg/dL [facility] Estimated Glomerular Filt Rate >60 [facility] Comment:Chronic Kidney Disea se: Estimated GFR < 60 mL/min/1.11o7Itoamq Kidney Disease: Estimated GFR < 15 mL/min/1.73m2 Glucose 90 60 - 115 mg/dL [facility] Calcium 9.2 8.4 - 10.2 mg/dL [facility] Bilirubin, Total 0.5 0.0 - 1.0 mg/dL [facility] Aspartate Amino Transferase 20 5 - 31 U/L [facility] Alanine Aminotransferase 16 0 - 31 U/L [facility] Total Protein 7.2 6.5 - 8.0 g/dL [facility] Albumin Level 3.8 3.5 - 5.0 g/dL [facility] Alkaline Phosphatase 104 39 - 117 U/L [facility] Blood Venous blood specimen / Unknown 10/04/2024 9:24 AM EST 10/04/2024 9:24 AM EST Win Barlow MD LAB BLOOD ORDERABLES Final Resul t Performing Organization Address [facility] Co de Phone Number [facility] [address] [place] [phone] * Hepatitis C Antibody with Reflex to HCV, RNA, Quantitative, Real-Time PCR (04/05/2024 9:21 AM EDT) Hepatitis C Antibody Nonreactive Nonreactive [facility] Comment:Antibodies to HCV no t detected; does not exclude early acuteHCV infection. Blood Venous blood specimen / Unknown 04/05/2024 9:21 AM EDT 04/05/2024 9:21 AM EDT us Win Barlow MD LAB BLOOD ORDERABLES Final Resul t Performing Organization Address [facility] Co de Phone Number [facility] [address] [place] [phone] * HIV-1/2 Antigen and Antibodies, Fourth Generation, with Reflexes (04/05/2024 9:21 AM EDT) HIV AB/AG Nonreactive Nonreactive [facility] Comment:HIV-1 p24 Ag and/or HIV-1/HIV-2 Ab not detected.A test result that is nonreactive does not exclude thepossibility of exposure to or infection with HIV-1 and/orHIV-2. Nonreactive results in this assay for individualswith prior exposure to HIV-1 and/or HIV-2 may be due toantigen and antibody levels that are below the limit ofdetection of this assay.[employer] HIV Ag/Ab Combo assay result andsupplemental assay results should be interpreted inconjunction with the patient's clinical presentation,history and other laboratory results. If the results areinconsistent with clinical evidence, additional testing issuggested to confirm the result. Blood Venous blood specimen / Unknown 04/05/2024 9:21 AM EDT 04/05/2024 9:21 AM EDT us Win Name LAB BLOOD ORDERABLES Final Resul t [facility] [address] [place] [phone] * BI US Breast Limited Left (12/14/2023 3:31 PM EDT) Anatomical Region Laterality Modality Breast Left Ultrasound 12/14/2023 3:31 PM EDT Narrative 12/14/2023 3:44 PM EDT ? [facility] [place] ? [address] ?[place] [address] ? Ultrasound Report ? Signed ? Patient: Sheila Hernandez ?MR#: [id number] ?? [id number] ? : 1965 ?Acct:[id number] ? Age/Sex: 58 / F ?ADM Date: 12/14/23 ? Loc: HO.MAMMO ? Attending Dr: Win Barlow MD ? Ordering Physician: Adwoa Reilly CNM ?? Date of Service: 12/14/23 ?? Procedure(s): US breast LT limited mamm only ?? Accession Number(s): [id number] ? cc: Adwoa Reilly CNM; Name,Win MOORE [...] signed by Nahun Negrete MD in OV> ?12/14/23 1540 ? DD/ 1531 ? TD/TT: ? Spot Cleaner: ? Procedure Note Donyandelinterpreter, Image - 12/14/2023 [facility] [address] [place] [address] Ultrasound Report Signed Patient: Alfonso HernandeznMDede#: [id number] : 1965Acct:[id number] Age/Sex: 58 / FADM Date: 12/14/23 Loc: HO.MAMMO Attending Dr: Win Barlow MD Ordering Physician: Adwoa Reilly CNM Date of Service: 12/14/23 Procedure(s): US breast LT limited mamm only Accession Number(s): [id number] cc: Adwoa Reilly CNM; Name,Win MOORE EXAMINATION: [...] in OV> 12/14/23 1540 DD/ 1531 TD/TT: Spot Cleaner: us [facility] External Provider IMG US PROCEDURES Final Result * Pap Smear (10/24/2023 10:48 AM EST) 10/24/2023 10:4 8 AM EST 10/26/2023 10:00 AM EST Narrative [facility] - 11/07/2023 3:50 PM EST ----- ------- Name: Sheila Hernandez ? Age/Sex: 57/F ? : 1965 Unit#: [id number] ?? Attend Dr: Adwoa Reilly CNM ?Re10/24/23 ?Status: DEP REF ? Location: HO.LNP ?Disch: ? ----- ------- SPEC : [id number] ? RECD: 10/26/23-1000 ? STATUS: ??SOUT ? REQ NUM: [id number] ? ARTIE: 10/24/23-1047 ? SUBM DR: Adwoa Reilly CNM ? [...] 66, 69) ?? HPV testing performed by [facility], [place], [place]. ??See reference laboratory ?? portion of the EMR for entire report. ?Clinical Information LMP: Menopausal Previous PAP test: 2019, WNL ? Material Received ?? ThinPrep-Cervical Copies To: ?? Adwoa Reilly CNM ?? [address] ?? [place] [address] ?? [phone] ?? Name,Win MOORE ?? [address] ?? [place] [address] ?? [phone] ----- ------- Signed (signature on file) MAINE Adams (ASCP) 11/07/23 1549 ? ----- ------- ? END OF REPORT ? Generic External Data Provider LAB CYTOLOGY AKILA HYMANDEDE Final Result [facility] [address] [place] [phone] * (ABNORMAL) Colonoscopy (06/07/2023) Colonoscopy Abnormal(A ) Normal Win Name HEALTH MAINTENANCE Final Result * Pap Smear (10/04/2018) Pap Negative for intraephithelial lesion or malignancy Negative for intraephithelial lesion or malignancy, Other HPV Undetected 10/04/2018 Historical Provider HEALTH MAINTENANCE Final Result from Last 3 Months or Most Recently Relevant to Health Maintenance Insurance [employer] C3 Care Teams Traffic Counter Relationship Specialty Start Date End Date Name, MD Win [address] [place] [phone] PCP - General Family Medicine 02/22/17
--- OUTSIDE RECORDS SUMMARY | 2024-11-10 13:45 | XMS_ITS | Encounter Summary ---
Author Organization [employer] Address [address] [place] [address] Care Team Providers Care Wash Operator Name Role Phone Name, Win MOORE Primary Care Provider [phone] Reason for Visit * Reason Onset Date Comments Nurse Triage 11/10/2024 Encounter Details Date Type Department Care Team ([facility] st Contact Info) Description 11/10/2024 Telephone [facility] MEDICINE [address] [place], [place] [phone] Name, MD Win [address] [place] [address] Nurse Triage Social History Tobacco Use Types Packs/Day Years [...] AM EDT documented as of this encounter Miscellaneous Notes * Telephone Encounter - Qi Varghese RN - 11/10/2024 10:06 AM EDT No automation and controls supervisor needed as this designer writer speaks Thai. Pt returning call below. Reports having cough and vomiting since Tuesday 11/07. Per pt last episode of vomiting Sunday. Per pt having tristen umbilical pain after meals. Per pt no green bile , blood or coffee grounds. Pt also did have diarrhea on Sunday. No blood in stools. Subjective fever. Pt states cough was productive now dry. Having right rib pain with cough. No nasal congestion, ST or ear pain. Pt speaking in clear full sentences. No audible wheezing manager application. Pt denies any widespread/localized rash. No travel reported. Pt advised of disposition, agrees to sick on site with team provider for exam. Multiple (2) protocols were used on this call. Disposition for Call: See in Office or Video Visit Today Future Appointments Date Time Provider Department Center 11/10/2024 11:15 AM Loren Shell MD MEDICINE [facility] 11/25/2024 10:[address] DIAB NUTR [facility] 01/06/2025 11:30 AM Win Barlow MD [facility] Insurance verified as active per Real Time Eligibility in [facility]. Protocol Used: Cough (Adult) Protocol-Based Disposition: See in Office or Video Visit Today Video visit offer not recorded Positive Triage Question: * Severe coughing spells (e.g., whooping sound after coughing, vomiting after coughing) * All higher-acuity triage questions were negative Care Advice Discussed: * Reassurance and Education - Cough * Prevent Dehydration * Reasons To Call Back - Difficulty breathing - You become worse Protocol Used: Abdominal Pain - Female (Adult) Protocol-Based Disposition: See in Office or Video Visit Today Video visit offer not recorded Positive Triage Question: * Moderate pain (e.g., interferes with normal activities that comes and goes (cramps) lasts > 24hours (Exception: Pain with Vomiting or Diarrhea - see that Protocol.) * All higher-acuity triage questions were negative Care Advice Discussed: * Reassurance and Education - Mild Stomachache * Drink Clear Fluids * Diet * Reasons To Call Back - You become worse * Telephone Encounter - Qi Varghese RN - 11/10/2024 9:32 AM EDT Call returned to Sheila Yan for triage below. No answer LVM to return call to [facility] triage line [phone]. * Telephone Encounter - Cony England - 11/10/2024 9:13 AM EDT Symptoms: Vomiting, Cough, Abdominal Pain - Female - Not Outcome: Talk to a nurse or provider within 15 minutes Reason: Severe pain now The caller accepted this outcome. documented in this encounter Plan of Treatment Upcoming Encounters Date Type Department Care Team (Late st Contact Info) Description 11/25/2024 10:30 AM EDT Nutrition [facility] DIABETES/NUTRITION [address] [place] [address] Ghislaine Reyes, IRA[place] [address] [place] [address] 01/06/2025 11:30 AM EDT Office Visit [facility] MEDICINE [address] [place] [address] Name, MD Win [address] [place] [address] documented as of this encounter Visit Diagnoses Not on filedocumented in this encounter Additional Health Concerns Assessment Noted Time PHQ-9 Depression Total Score: 6 11/22/19 24 11:13 AM EDT documented as of this encounter Care Teams Wash Operator Relationship Specialty Start Date End Date Name, MD Win [address] [place] [address] PCP - General Family Medicine 02/22/17 documented as of this encounter
--- OUTSIDE RECORDS SUMMARY | 2024-11-10 13:45 | XMS_ITS | Patient Health Record ---
Author Organization [facility] Address [address] [place] [address] Care Team Providers Care Malted Milk Masher Name Role Phone Name Win MOORE Primary Care Provider Manfred Huff [phone] Allergies No Known Allergies Reason For Referral No Information Medications Medication SIG (Take, Route, Frequency, Duration) Notes [...] one day for 1 day 03/09/2023 Active Social History Tobacco Use: Social History Observation Description Date Details (start date - stop date) Never Smoker NA - NA Tobacco Use/Smoking Question Answer Notes Patient is [...] Never (0 point) Points 0 Interpretation Negative Section Notes: Nonsmoker; no sig alcohol Nonsmoker; no sig alcohol Problems Problem Type SNOMED Code ICD Code Onset Dates Problem Status W/U Status Risk Notes Problem 059458082 Encounter for screening for malignant neoplasm of colon (Z12.11) Active confirmed Problem Diverticular disease of colon (567608385) Diverticulosis of large intestine without perforation or abscess without bleeding (K57.30) Active confirmed Problem 543139783 Preprocedural examination (Z01.818) Active confirmed Problem History of polyp of colon (955096702) History of colon polyps (Z86.010) Active confirmed Problem 082628970 Abnormal CT scan , colon (R93.3) Active confirmed Problem 200449331 History of colonic polyps (Z86.010) Active confirmed Problem Diverticulosis of colon (090520323) Diverticulosis of colon (K57.30) Active confirmed Plan Of Treatment Future Test Test Name Order Date COLONOSCOPY 08/07/2017 COLONOSCOPY 03/08/2023 COLONOSCOPY 05/31/2023 Insurance Providers Payer Name Payer Address Payer Phone Subscriber Number Group Number Insured Name Patient Relationship to Insured Coverage Start Date Coverage End Date [facility] [id number] [place] [phone] [id number] FIORELLA MONTIEL Self - patient is the insured Medical (General) History Medical History History ICD Code Hypertension Denies [place],DM,CVA,Lung disease,renal dise ase Colonoscopy in 05/2015 in [place]- -the report describes a 10 mm polyp in the rectum that was removed by snare polypectomy--the report describes a suboptimal prep and therefore the doctor recommended another colonoscopy within one year Negative colonoscopy in 11/2017 Surgical History Surgery Date(Month/Year) x 2 1996,2001 [place] teeth extraction Gastric sleeve at [facility]-lost > 100# 2018
--- OUTSIDE RECORDS SUMMARY | 2024-11-10 13:45 | XMS_ITS ---
Author Organization [facility] Address [address] [place] [address] Care Team Providers Care Aircraft Machinist Name Role Phone Name Win MOORE Primary Care Provider Manfred Huff [phone] serna office Encounters Encounter Location Date Provider Diagnosis [facility] [address] [place] [address] 06/07/2023 Manfred Smith Plan Of Treatment No Information Progress Notes * ADARSH MONTIELOB:[birth year] (57 yo F)Acc No.[id number]:06/07/2023 Patient:?FIORELLA MONTIEL :1965???Age:57 Y???Sex:Female Address:[address] [place] [address], [address] * true * Date:? Generated for Seani isabella/[place]annah/eTransmitting on:?11/10/2024 01:45 PM EDT
--- OUTSIDE RECORDS SUMMARY | 2024-11-10 13:45 | XMS_ITS ---
Author Organization [facility] Address [address] [place] [address] Care Team Providers Care Form Tamping Machine Operator Name Role Phone Name Win MOORE Primary Care Provider Manfred Huff [phone] REASON FOR VISIT abn ct scan colon,hx polyps Problems Problem Type SNOMED Code ICD Code Onset Dates Problem Status W/U Status Risk Notes Problem Diverticular disease of colon (268669383) Diverticulosis of large intestine without perforation or abscess without bleeding (K57.30) Active confirmed Encounters Encounter Location Date Provider Diagnosis [facility] [address] [place] [id number] 06/07/2023 Manfred Smith Colon polyps K63.5 ; Diverticulosis of large intestine without perforation or abscess without bleeding K57.30 ; Other hemorrhoids K64.[address] scan, colon R93.3 Assessments Encounter Date Diagnosis (ICD Code) Assessment Notes Treatment Notes Treatment Clinical Notes Section Notes 06/07/2023 Colon polyps (ICD-10 - K63.5) 06/07/2023 Diverticulosis of large intestine without perforation or abscess without bleeding (ICD-10 - K57.30) 06/07/2023 Other hemorrhoids (ICD-10 - K64.8) 06/07/[address] scan, colon (ICD-10 - R93.3) Plan Of Treatment No Information Progress Notes * KARLY MONTIELNDOB:[birth year] (58 yo F)Acc No.[id number]:06/07/2023 COLON WITH MAC Patient:?FIORELLA MONTIEL Provider:?Manfred Smith MD :1965???Age:57 Y???Sex:Female D ate:06/07/2023 Address:[address] [place] [address] Pcp:Win Barlow MD Subjective: * Chief Complaints: * ???1. Abn ct scan colon,hx p olyps. * Medical History:? Objective: * Vitals:? Assessment: * Assessment: 1.?Colon polyps - K63.5 (Aury analisa)???2.?Diverticulosis of large intestine without perforation or abscess without bleeding - K57.30???3.?Other hemorrhoids - K64.8???4.?Abnormal CT scan, colon - R93.3??? Plan: * Treatment: * Procedure Codes:?94781 LESIO N REMOVAL COLONOSCOPY, 17848 COLONOSCOPY AND BIOPSY, Modifiers: 59 * * The named appointment provid er may or may not be the originator of this progress note, and it is not deemed complete until electronically signed by the appointment provider. Sign off status: Pending * Provider:?Manfred Smith MD Date:? 023 Generated for Sabine mason/Savannah/Fernandezitting on:?11/10/2024 09:12 AM EDT
== END 2024-11-10 12:06 | disposition home or self-care (01) ==
LOC: HO.HHCX 12:05
PROVIDERS: Visit Provider Internal Medicine
DX: R05.3 Chronic cough (principal); J40 Bronchitis, not specified as acute or chronic
CPT/HCPCS: 71046

== ENCOUNTER → 2024-11-10 12:06 | Outpatient (BNV) | payer MEDICAID, SELFPAY | PROVIDERS: Visit Provider Radiology Diagnostic Radiology | DX: R05.3 Chronic cough (principal) | CPT/HCPCS: 71046 ==

== ENCOUNTER 2024-12-19 09:59 | Outpatient (REF) | payer MEDICAID, SELFPAY ==
--- OUTSIDE RECORDS SUMMARY | 2024-12-19 10:46 | XMS_ITS | Encounter Summary ---
Author Organization [employer] [facility] Address [address] [place] [address] [address] [place] [address] Care Team Providers Care Cleaning And Maintenance Worker Name Role Phone Name, Win MOORE Primary Care Provider [phone] Encounter Details Date Type Department Care Team (Latest Contact Info) Description 05/22/2019 Abstract [facility] CONVERSIONS Dental, Provider, DDS Social [...] Care Team ( st Contact Info) Description 12/26/2024 11:00 AM EDT Nutrition [facility] DIABETES/NUTRITION [address] [place] [address] [place] [address] 01/06/2025 11:30 AM EDT Office Visit [facility] MEDICINE [address] [place], [place] [phone] Win Barlow MD [address] [place] [address] documented as of this encounter Visit Diagnoses Not on filedocumented in this encounter Care Teams Cleaning And Maintenance Worker Relationship Specialty Start Date End Date NameWin MD [address] [place] [phone] PCP - General Family Medicine 02/22/17 documented as of this encounter
--- OUTSIDE RECORDS SUMMARY | 2024-12-19 10:46 | XMS_ITS | Clinical Summary ---
Author Organization [employer] Address [address] [place] [address] 7[address] [place] [address] Care Team Providers Care Celery Cutter Name Role Phone Name, Win MOORE Primary Care Provider [phone] Allergies No known active allergies Medications Diclofenac [...] wheezing. 18 g 5 11/11/19 26 Active famotidine (Pepcid) 20 MG tabletIndication s:Viral syndrome Take 1 tablet (20 mg) by mouth 2 times daily. 30 tablet 5 11/11/19 26 Active Active Problems Problem Noted Date Diagnosed Date Viral syndrome 11/10/2024 Assessment & Plan (11/10/2024 2:38 PM EDT): Advised to drink plenty of fluids and rest I will prescribe for patient Zofran and famotidine Persistent cough 11/10/2024 Bronchitis 11/10/2024 Assessment & Plan (11/10/2024 2:38 PM EDT): I will prescribe for patient azithromycin for 5 days and albuterol inhaler 2 puffs every 4-6 hours as needed I advised to drink plenty of fluids and rest I will order x-ray patient will be contacted with results Adjustment disorder, unspecified 03/31/2024 Problem related to unspecified psychosocial circ umstances 03/31/2024 Benign breast cyst in female 04/26/2023 Bilateral calcific tendinitis of shoulders 04/26 Bilateral hip bursitis 04/26/2023 Hip pain 04/26/2023 S/P laparoscopic sleeve gastrectomy 04/26/2023 Overview (10/02/2024): [place] [facility] [place] weight was 290 pounds She [...] Encounters Date Type Department Care Team Description 11/26/2024 Population Health Risk Score [facility] () Department [address] [phone] Provider, Population Health Generic 11/10/2024 11:15 AM EDT Office Visit [facility] [address] [place] [phone] Loren Sears MD Viral syndrome (Primary Dx); Persistent cough; Bronchitis 11/10/2024 Telephone [facility] [address] [place] [address] Loren Sears MD Results (Xray) 11/10/2024 Travel 11/10/[address] [address] Win Barlow MD Nurse Triage 10/06/[address] [address] Maira Tejada, NADIA Results 10/06/2024 Orders Only [address] [address] Win Barlow MD Vitamin D deficiency (Primary Dx) 10/02/2024 11:30 AM EST Office Visit [address] [address] Win Barlow MD Morbid obesity ([facility]) (Primary Dx); Screening for diabetes mellitus; Screening [...] Care Team (Late st Contact Info) Description 12/26/2024 11:00 AM EDT Nutrition [facility] DIABETES/NUTRITION [address] [place] [address] [place] [address] 01/06/2025 11:30 AM EDT Office Visit [facility] [address], [place] [phone] Name, MD Win [address] [place] [address] Health Maintenance Due Date Last Done Comments [...] Routine 10/04/2024 9:24 AM EST Morbid obesity (CMS/[facility]) Screening for diabetes mellitus Screening for cholesterol [...] 10:48 AM EST HM COLONOSCOPY Routine 06/07/2023 HM PAP/HPV Routine 10/04/2018 from Last 3 Months or Most Recently Relevant to Health Maintenance Results * XR Chest 2 Views (11/10/2024 12:06 PM EDT) Anatomical Region Laterality Modality Chest Radiographic Juliann ging 11/10/2024 12:0 6 PM EDT Narrative 11/10/2024 12:44 PM EDT ?[facility] ?[address] ?[place] [address] ?XRay Report ? Signed ? Patient: Sheila Hernandez ?MR#: [id number] ?? [id number] ? : 1965 ?Acct:[id number] ? Age/Sex: 58 / F ?ADM Date: 11/10/24 ? Loc: HO.HHCX ? Attending Dr: Loren Shell MD ? Ordering Physician: Loren Sears MD ?? Date of Service: 11/10/24 ?? Procedure(s): XR chest 2V ?? Accession Number(s): [id number] ? cc: Loren Sears MD ? EXAMINATION: [...] DD/ 1206 ? TD/TT: 11/10/24 1219 ? Rod Hanger: ? Procedure Note Hailey Rodriguez - 11/10/2024 [facility] [address] [place] [address] XRay Report Signed Patient: Ck Hernandez#: [id number] : 1965Acct:[id number] Age/Sex: 58 / FADM Date: 11/10/24 Loc: HO.HHCX Attending Dr: Loren Shell MD Ordering Physician: Loren Sears MD Date of Service: 11/10/24 Procedure(s): XR chest 2V Accession Number(s): [id number] cc: Loren Sears MD EXAMINATION: XR CHEST [...] 11/10/24 1240 DD/ 1206 TD/TT: 11/10/24 1219 Rod Hanger: us Loren Shell MD IMG XR PROCEDURES Fin al Result * POCT Rapid Influenza B JARAMILLO ID NOW (11/10/2024 11:45 AM EDT) Influenza B Negative Negative, Indeterminate [facility] Swab 11/10/2024 11:4 5 AM EDT us Loren Shell MD POINT OF CARE TEST EN TER/EDIT ORDERABLES Final Result [facility] [address] [place] [phone] * POCT Rapid Influenza A JARAMILLO ID NOW (11/10/2024 11:45 AM EDT) Influenza A Negative Negative, Indeterminate [facility] Swab 11/10/2024 11:4 5 AM EDT Loren Shell MD POINT OF CARE TEST EN TER/EDIT ORDERABLES Final Result [facility] [address] [place] [phone] * POCT Rapid Covid-19 JARAMILLO ID NOW (11/10/2024 11:45 AM EDT) Coronavirus Antigen PCR Negative Negative, Indeterminate, None Detected, Invalid, Specimen unsatisfactory for evaluation, Weakly Positive Swab 11/10/2024 11:4 5 AM EDT Loren Shell MD POINT OF CARE TEST EN TER/EDIT ORDERABLES Final Result * (ABNORMAL) Vitamin D, 25-Hydroxy, Total, Immunoassay (10/04/2024 9:24 AM EST) Vitamin D 25-OH Total 23.9(L) >30 ng/mL [facility] Comment:Health Based Referen ce Values*< 20 ng/mL Jiiikbddv18-04 ng/mL Insufficient> 30 ng/mL Sufficient*Esa WHEAT. N [...] ORDERABLES Final Resul t Performing Organization Address City/[facility]/ZIP Co de Phone Number [facility] [address] [place] [phone] * TSH W/Reflex to FT4 (10/04/2024 9:24 AM EST) TSH reflex Free T4 2.01 0.32 - 4.0 uIU/mL [facility] Blood Venous blood specimen / Unknown 10/04/2024 9:24 AM EST 10/04/2024 9:24 AM EST us Win Barlow MD LAB BLOOD ORDERABLES Final Resul t Performing Organization Address [facility] Co de Phone Number [facility] [address] [place] [phone] * CBC auto differential (10/04/2024 9:24 AM EST) White Blood Count 5.7 4.8 - 10.8 X10*3/uL [facility] Red Blood Count 4.76 4.20 - 5.50 X10*6/uL [facility] Hemoglobin 13.5 12.0 - 16.0 g/dl [facility] Hematocrit 40.0 37.0 - 47.0 % [facility] Mean Corpuscular Volume 84.0 80.0 - 98.0 fL [facility] Mean Corpuscular Hemoglobin 28.4 27.0 - 33.0 pg [facility] Mean Corpuscular HGB Conc 33.8 31.0 - 35.0 g/dl [facility] Red Cell Distribution Width 14.4 11.0 - 16.0 % [facility] Platelet Count 246 160 - 400 X10*3/uL [facility] Mean Platelet Volume 9.9 9.4 - 12.3 fL [facility] Neutrophils Percent Auto 56.5 45 - 73 % [facility] Imm Gran Pct Auto 0.3 0.0 - 0.4 % [facility] Lymphocytes Percent Auto 35.7 20 - 40 % [facility] Monocytes Percent Auto 5.6 2 - 11 % [facility] Eosinophils Percent Auto 1.2 0 - 4 % [facility] Basophils Percent Auto 0.7 0 - 2 % [facility] NRBC Pct Auto 0.0 0.0 - 0.2 /100WBC [facility] Neutrophils Absolute Auto 3.2 2.0 - 8.3 x10*3/uL [facility] Imm Gran Abs Auto 0.02 0.00 - 0.03 X10*3/uL [facility] Lymphocytes Absolute Auto 2.0 1.2 - 4.9 X10*3/uL [facility] Monocytes Absolute Auto 0.3 0.1 - 1.2 X10*3/uL [facility] Eosinophils Absolute Auto 0.1 0.0 - 0.4 X10*3/uL [facility] Basophils Absolute Auto 0.0 0.0 - 0.2 X10*3/uL [facility] NRBC Abs Auto 0.000 0.0 - 0.012 X10*3/uL [facility] Blood Venous blood specimen / Unknown 10/04/2024 9:24 AM EST 10/04/2024 9:24 AM EST us Win Name LAB BLOOD ORDERABLES Final Resul t [facility] [address] [place] [phone] * Iron And Total Iron Binding Capacity (10/04/2024 9:24 AM EST) Iron 109 30 - 160 mcg/dL [facility] Total Iron Binding Capacity 311 228 - 428 mcg/dL [facility] Percent Iron Saturation 35 15 - 50 % [facility] Unsaturated Iron Binding 202 ug/dL [facility] Blood Venous blood specimen / Unknown 10/04/2024 9:24 AM EST 10/04/2024 9:24 AM EST us Win Barlow MD LAB BLOOD ORDERABLES Final Resul t Performing Organization Address [facility] Co de Phone Number [facility] [address] [place] [phone] * (ABNORMAL) PTH, Intact Without Calcium (10/04/2024 9:24 AM EST) Parathyroid Hormone, Intact 158.1(H) 8.7 - 77.1 pg/mL [facility] Blood Venous blood specimen / Unknown 10/04/2024 9:24 AM EST 10/04/2024 9:24 AM EST us Win Barlow MD LAB BLOOD ORDERABLES Final Resul t Performing Organization Address [facility] de Phone Number [facility] [address] [place] [phone] * Hemoglobin A1c (10/04/2024 9:24 AM EST) Hemoglobin A1c 5.4 <6.0 % [facility] Comment:Hemoglobin A1C Refer ence Range Adults: 4.8 - 6.0 % Non diabetic: < 6.0 % Goal: < 7.0 %Additional Action Suggested: > 8.0 %Note: Hemoglobin A1c results are invalid for patients with abnormal amounts of HbF. Blood transfusions may impact the HbA1c concentration in the patient sample. Estimated Average Glucose 108 mg/dL [facility] Comment:eAG = Estimated ave rage glucose which is %A1C expressed asaverage glucose, using the formula of the R4C-LlgfcbcWeseoey Glucose study (ADAG), Diabetes Care, Vol.31,#8,Apr. 2007 Blood Venous blood specimen / Unknown 10/04/2024 9:24 AM EST 10/04/2024 9:24 AM EST us Win Barlow MD LAB BLOOD ORDERABLES Final Resul t Performing Organization Address [facility]/ZIP Co de Phone Number [facility] [address] [place] [phone] * (ABNORMAL) Lipid Panel, Standard (10/04/2024 9:24 AM EST) Triglycerides 120 <150 mg/dL [facility] Comment:Desirable Triglyceri de: less than 150 mg/dLBorderline High Triglyceride 150-199 mg/dLHigh Triglyceride: 200-499 mg/dLVery High Triglyceride: greater than or equal to 5OO mg/dL Cholesterol 230(H) <200 mg/dL [facility] Comment:Desirable Cholestero l: less than 200 mg/dLBorderline High Cholesterol: 200-239 mg/dLHigh Cholesterol: greater than 239 mg/dL LDL Cholesterol Calculated 158(H) <100 mg/dL [facility] Comment:Desirable LDL: less than 100 mg/dLNear Optimal/Above Optimal LDL: 110- 129 mg/dLBorderline High LDL: 130-159 mg/dLHigh LDL: 160-189 mg/dLVery High LDL: greater than or equal to 190 mg/dL HDL Cholesterol 48 >40 mg/dL [facility] Comment:Desirable HDL: great er than 40 mg/dL Note: This HDL assay may give artificially low results in patients with liver disease. Blood Venous blood specimen / Unknown 10/04/2024 9:24 AM EST 10/04/2024 9:24 AM EST us Win Name MD LAB BLOOD ORDERABLES Final Resul t [facility] [address] [place] [phone] * Comprehensive Metabolic Panel (10/04/2024 9:24 AM EST) Sodium 140 135 - 145 mmol/L [facility] Potassium 4.4 3.3 - 5.1 mmol/L [facility] Chloride 108 96 - 108 mmol/L [facility] Carbon Dioxide 24 22 - 29 mmol/L [facility] Anion Gap 12 12 - 20 [facility] Urea Nitrogen (BUN) 14 9 - 16 mg/dL [facility] Creatinine, Serum 0.57 0.5 - 1.4 mg/dL [facility] Estimated Glomerular Filt Rate >60 [facility] Comment:Chronic Kidney Disea se: Estimated GFR < 60 mL/min/1.05o1Zplpvp Kidney Disease: Estimated GFR < 15 mL/min/1.73m2 Glucose 90 60 - 115 mg/dL [facility] Calcium 9.2 8.4 - 10.2 mg/dL [facility] Bilirubin, Total 0.5 0.0 - 1.0 mg/dL [facility] Aspartate Amino Transferase 20 5 - 31 U/L [facility] Alanine Aminotransferase 16 0 - 31 U/L [facility] Total Protein 7.2 6.5 - 8.0 g/dL [facility] Albumin Level 3.8 3.5 - 5.0 g/dL [facility] Alkaline Phosphatase 104 39 - 117 U/L [facility] Blood Venous blood specimen / Unknown 10/04/2024 9:24 AM EST 10/04/2024 9:24 AM EST us Win Barlow MD LAB BLOOD ORDERABLES Final Resul t Performing Organization Address [facility] Co de Phone Number [facility] [address] [place] [phone] * Hepatitis C Antibody with Reflex to HCV, RNA, Quantitative, Real-Time PCR (04/05/2024 9:21 AM EDT) Hepatitis C Antibody Nonreactive Nonreactive [facility] Comment:Antibodies to HCV no t detected; does not exclude early acuteHCV infection. Blood Venous blood specimen / Unknown 04/05/2024 9:21 AM EDT 04/05/2024 9:21 AM EDT us Win Barlow MD LAB BLOOD ORDERABLES Final Resul t Performing Organization Address City/[facility] Co de Phone Number [facility] [address] [place] [phone] * HIV-1/2 Antigen and Antibodies, Fourth Generation, with Reflexes (04/05/2024 9:21 AM EDT) HIV AB/AG Nonreactive Nonreactive [facility] Comment:HIV-1 p24 Ag and/or HIV-1/HIV-2 Ab not detected.A test result that is nonreactive does not exclude thepossibility of exposure to or infection with HIV-1 and/orHIV-2. Nonreactive results in this assay for individualswith prior exposure to HIV-1 and/or HIV-2 may be due toantigen and antibody levels that are below the limit ofdetection of this assay.The Poup HIV Ag/Ab Combo assay result andsupplemental assay results should be interpreted inconjunction with the patient's clinical presentation,history and other laboratory results. If the results areinconsistent with clinical evidence, additional testing issuggested to confirm the result. Blood Venous blood specimen / Unknown 04/05/2024 9:21 AM EDT 04/05/2024 9:21 AM EDT us Win Barlow MD LAB BLOOD ORDERABLES Final Resul t [facility] [address] [place] [phone] * BI US Breast Limited Left (12/14/2023 3:31 PM EDT) Anatomical Region Laterality Modality Breast Left Ultrasound 12/14/2023 3:31 PM EDT Narrative 12/14/2023 3:44 PM EDT ? [facility] ? [address] ?[place] [address] ? Ultrasound Report ? Signed ? Patient: Ty Yan,Sheila ?MR#: [id number] ?? [id number] ? : 1965 ?Acct:[id number] ? Age/Sex: 58 / F ?ADM Date: 04/12/24 ? Loc: HO.MAMMO ? Attending Dr: Win Barlow MD ? Ordering Physician: Adwoa Reilly CNM ?? Date of Service: 12/14/23 ?? Procedure(s): US breast LT limited mamm only ?? Accession Number(s): [id number] ? cc: Adwoa Reilly CNM; Name,Win MOORE [...] 1540 ? DD/ 1531 ? TD/TT: ? Rod Hanger: ? Procedure Note Jennifer, Hailey - 12/14/2023 [facility] [address] [place] [address] Dr. [place], [place] [address] Ultrasound Report Signed Patient: Alfonso HernandezCTR#: [id number] : 1965Acct:[id number] Age/Sex: 58 / FADM Date: 12/14/23 Loc: HO.MAMMO Attending DrVonda Barlow MD Ordering Physician: Adwoa Reilly CNM Date of Service: 12/14/23 Procedure(s): US breast LT limited mamm only Accession Number(s): [id number] cc: Adwoa Reilly CNM; Name,Win MOORE EXAMINATION: [...] in OV> 12/14/23 1540 DD/ 1531 TD/TT: Rod Hanger: [facility] External Provider IMG US PROCEDURES Final Result * Pap Smear (10/24/2023 10:48 AM EST) 10/24/2023 10:4 8 AM EST 10/26/2023 10:00 AM EST [facility] - 11/07/2023 3:50 PM EST ----- ------- Name: Sheila Hernandez ? Age/Sex: 57/F ? : 1965 Unit#: [id number] ?? Attend Dr: Adwoa Reilly CNM ?Re10/24/23 ?Status: DEP REF ? Location: HO.LNP ?Disch: ? ----- ------- SPEC : [id number] ? RECD: 10/26/23-999 ? STATUS: ??SOUT ? REQ NUM: [id number] ? ARTIE: 10/24/23-1047 ? SUBM DR: Adwoa Reilly CNGilberto ? ENTERED: ??10/26/23-1027 ?SP TYPE: Pap Smr ?OTHR DR: Name,Win MOORE ? ORDERED: ??Pap Smear ? Interpretation ?? Satisfactory for evaluation. ?? Negative for intraepithelial lesion or malignancy. ?HPV mRNA E6/E7: ?NOT DETECTED ? This assay detects E6/E7 viral messenger RNA (mRNA) from 14 high-risk HPV types (16, 18, ?? 31, 33, 35, 39, 45, 51, 52, 56, 58, 59, 66, 68) ?? HPV testing performed by [employer] [facility], [place], [place]. ??See reference laboratory ?? portion of the EMR for entire report. ?Clinical Information LMP: Menopausal Previous PAP test: 2019, WNL ? Material Received ?? ThinPrep-Cervical Copies To: ?? Adwoa Reilly CNM ?? [address] [facility] ?? [place] [address] ?? [phone] ?? Name,Win MOORE ?? [address] ?? [place] [address] ?? [phone] ----- ------- Signed (signature on file) MAINE Adams (ASCP) 11/07/23 1549 ? ----- ------- ? END OF REPORT ? us Generic External Data Provider LAB CYTOLOGY MARYE RABLES Final Result [facility] [address] [place] [phone] * (ABNORMAL) Hm Colonoscopy (06/07/2023) Colonoscopy Abnormal(A ) Normal Win Barlow MD HEALTH MAINTENANCE Final Result * Hm Pap Smear (10/04/2018) Pap Negative for intraephithelial lesion or malignancy Negative for intraephithelial lesion or malignancy, Other HPV Undetected 10/04/2018 Historical Provider HEALTH MAINTENANCE Final Result from Last 3 Months or Most Recently Relevant to Health Maintenance Insurance [employer] Care Teams Celery Cutter Relationship Specialty Start Date End Date Name, MD Win [address] [place] [address] PCP - General Family Medicine 02/22/17
--- OUTSIDE RECORDS SUMMARY | 2024-12-19 10:46 | XMS_ITS | Encounter Summary ---
Author Organization [employer] [facility] Address [address] [place] [address] [address] [place] [address] Care Team Providers Care Sound Engineer Name Role Phone Name, Win MOORE Primary Care Provider [phone] Encounter Details Date Type Department Care Team (Late st Contact Info) Description 02/12/2023 Abstract [facility] MEDICINE [address] [place] [phone] NameWin MD [address] [place] [phone] Social History Tobacco Use Types Packs/Day Years [...] Info) Description 12/26/2024 11:00 AM EDT Nutrition [facility] DIABETES/NUTRITION [address] [place] [phone] [place] [address] 01/06/2025 11:30 AM EDT Office Visit [facility] [address] [place] [address] [phone] Win Barlow MD [address] [place] [address] [phone] documented as of this encounter Procedures Procedure [...] on filedocumented in this encounter Care Teams Sound Engineer Relationship Specialty Start Date End Date Name, MD Win [address] [place] [address] PCP - General Family Medicine 02/22/17 documented as of this encounter
--- OUTSIDE RECORDS SUMMARY | 2024-12-19 10:46 | XMS_ITS | Patient Health Record ---
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 Name Role Phone Name Win MOORE Primary Care Provider Manfred Huff [phone] Allergies No Known Allergies Reason For Referral [...] Problem Status W/U Status Risk Notes Problem 737351643 Encounter for screening for malignant neoplasm of colon (Z12.11) Active confirmed Problem Diverticular disease of colon (512315364) Diverticulosis of large intestine without perforation or abscess without bleeding (K57.30) Active confirmed Problem 333197577 Preprocedural examination (Z01.818) Active confirmed Problem History of polyp of colon (situation) (377093149) History of colon polyps (Z86.010) Active confirmed Problem 736459251 Abnormal CT scan , colon (R93.3) Active confirmed Problem 798131465 History of colonic polyps (Z86.010) Active confirmed Problem Diverticulosis of colon (090593240) Diverticulosis of colon (K57.30) Active confirmed Plan Of Treatment Future Test Test Name Order Date COLONOSCOPY 08/07/2017 COLONOSCOPY 03/08/2023 COLONOSCOPY 05/31/2023 Insurance Providers Payer Name Payer Address Payer Phone Subscriber Number Group Number Insured Name Patient Relationship to Insured Coverage Start Date Coverage End Date [facility] [address] [place] [phone] [id number] FIORELLA MONTIEL Self - patient is the insured Medical (General) History Medical History History ICD Code Hypertension Denies NH,DM,CVA,Lung disease,renal dise ase Colonoscopy in 05/2015 in [place]- -the report describes a 10 mm polyp in the rectum that was removed by snare polypectomy--the report describes a suboptimal prep and therefore the doctor recommended another colonoscopy within one year Negative colonoscopy in 11/2017 Surgical History Surgery Date(Month/Year) x 2 1996,2001 [place] teeth extraction Gastric sleeve at [facility]-lost > 100# 2018
--- OUTSIDE RECORDS SUMMARY | 2024-12-19 10:46 | XMS_ITS | Encounter Summary ---
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 Name Role Phone Name, Win MOORE Primary Care Provider [phone] Encounter Details Date Type Department Care Team (Latest Contact Info) Description 06/04/2020 Abstract [facility] CONVERSIONS Dental, Provider, DDS Social History [...] Info) Description 12/26/2024 11:00 AM EDT Nutrition [facility] DIABETES/NUTRITION [address] [place] [address] [place] [address] 01/06/2025 11:30 AM EDT Office Visit [facility] MEDICINE [address] [place], [place] [phone] Win Barlow MD [address] [place] [address] documented as of this encounter Visit Diagnoses Not on filedocumented in this encounter Care Teams Solid Die Cutter Relationship Specialty Start Date End Date NameWin MD [address] [place] [phone] PCP - General Family Medicine 02/22/17 documented as of this encounter
== END 2024-12-19 10:00 | disposition home or self-care (01) ==
LOC: HO.MAMMO 09:59
PROVIDERS: PCP Internal Medicine Geriatric Medicine; Visit Provider Internal Medicine Geriatric Medicine
DX: Z12.31 Encounter for screening mammogram for malignant neoplasm of breast (principal)
CPT/HCPCS: 77063; 77067

== ENCOUNTER → 2024-12-19 10:30 | Outpatient (BNV) | payer MEDICAID, SELFPAY | PROVIDERS: PCP Internal Medicine Geriatric Medicine; Visit Provider Internal Medicine | DX: Z12.31 Encounter for screening mammogram for malignant neoplasm of breast (principal) | CPT/HCPCS: 77063; 77067 ==